=== PATIENT | female | born 1950 | race Caucasian/White ===

== ENCOUNTER → 2022-01-12 10:01 | Outpatient (REF) | payer MEDICARE, SELFPAY ==
--- NOTE | 2022-01-12 10:05 | CA_ITS ---
Transthoracic Echocardiogram Patient (Last, First, Middle): Jaqueline Ojeda Lou Gender: Female Date of : 1950 Age: 71 Procedure Date: 01/12/2022 Procedure Type: Transthoracic Echocardiogram Location: OP Height: 154.94 cm Weight: 74.84 kg BSA: 1.74 m2 Heart Rate: bpm BP: 140 / 68 mmHg Recreation Counselor: TO Referring MD: Dorinda Melendez MD Multi Operation Machine Operator: Donavan Ewing MD Symptoms: R06.09 - Other forms of dyspnea Study Quality: Fair/Contrast ECG Rhythm: Sinus Conclusions: - 1. Normal LV systolic function with impaired relaxation filling pattern 2. Mild mitral regurgitation 3. Normal RV systolic pressure 4. No gross pericardial effusion Findings Procedure Information Contrast agent, definity, is being given per protocol without apparent complications. Left Ventricle Normal left ventricular size, thickness, and systolic function. The visually estimated ejection fraction is between 65-70%. Spectral Doppler is indicative of an impaired relaxation filling pattern. E/E prime ratio is between 8 and 15 consistent with indeterminate filling pressures. Right Ventricle Normal right ventricular cavity size and systolic function. Atria Both atria are normal in size. Interatrial shunt cannot be excluded. Aortic Valve Normal aortic valve structure and function. There is no aortic valve stenosis. There is no aortic valve regurgitation. Mitral Valve There is mild anterior and posterior mitral leaflet thickening. There is mild mitral valve regurgitation. There is no mitral valve stenosis. Pulmonic Valve The pulmonic valve was not well visualized. Tricuspid Valve Likely normal tricuspid valve structure and function. There is trace tricuspid valve regurgitation. The right ventricular systolic pressure is normal. The right ventricular systolic pressure is 23 mmHg. Normal right atrial pressure. There is no evidence of pulmonary hypertension. Great Vessels All visible segments of the aorta are normal in size. The pulmonary artery was not well visualized. Venous The inferior vena cava is normal in size and collapses greater than 50% with inspiration. Pericardium/Pleural There is no evidence of pericardial effusion. Prior Study Comparison No prior study available for comparison. Measurements 2D Linear Measurements IVSd: 1.10 0.6-0.9/0.6-1.0 cm LVIDd: 4.22 3.9-5.3/4.2-5.9 cm LVIDd Index: 2.43 2.4-3.2/2.2-3.1 cm/m2 LVIDs: 2.39 2.0-3.6 cm LVPWd: 0.90 0.7-1.1 cm LA Diam: 3.50 2.7-3.8/3.0-4.0 cm LAIDs Index: 2.01 1.5-2.3 cm/m2 LV Mass: 171.51 67-162/88-224 g LV Mass Index: 98.57 43-95/49-115 g/m2 LVOT Diam: 1.90 3.0+(-)1.3 cm 2D Systolic Function EF 4C: 70.10 >55% EF 2C: 66.50 >55% EF BiP: 69.30 >55% Mitral Valve MV Pk E: 0.68 MV PK A: 0.91 MV Decel Time: 256.00 E/A: 0.80 E'Lateral: 9.14 E'Medial: 6.09 E/E' Med: 11.20 E/E' Lat: 7.50 PHT: 75.00 MVA PHT: 2.93 Decel [place]: 2.66 Aortic Valve AoV Pk Haroon: 1.96 AoV Mn Haroon: 1.28 AoV VTI: 0.36 AoV Pk Grad: 15.00 Aov Mn Grad: 7.00 ASHLEY Cont.VTI: 2.00 LVOT LVOT Pk Haroon: 1.36 LVOT Mn Haroon: 0.94 LVOT VTI: 0.26 LVOT Pk Grad: 7.00 LVOT Mn Grad: 4.00 LVOT Diam: 1.90 LVOT Area: 2.84 Diastolic Function MV Pk E: 0.68 MV Pk A: 0.91 E/A: 0.80 E'Medial: 6.09 E/E' Med: 11.20 E' Laterial: 9.14 E/E' Lat: 7.50 Right Ventricle TAPSE (mm): 20.70 TVS' Haroon: 11.10 Tricuspid Valve TR Pk Haroon: 2.26 TR Pk Grad: 20.00 RA Press: 3.00 RVSP: 23.00 Great Vessels Aorta Sinus of Valsalva: 2.68 2.0-3.[address] [place]: 1.85 1.7-3.4 cm Ao Asc: 2.40 2.1-3.4 cm Updated in Other Vendor System with Status of Final Donavan Ewing MD electronically signed on 01/13/2022 12:37:04 PM with status of Final
== END ==
LOC: HO.CARD 10:01
PROVIDERS: PCP Internal Medicine; Visit Provider Internal Medicine
DX: R06.09 Other forms of dyspnea (principal)
CPT/HCPCS: 93306; Q9957

== ENCOUNTER 2022-02-11 08:44 | Outpatient (REF) | payer MEDICARE, SELFPAY ==
--- NOTE | ~2022-02-11 | US_ITS ---
EXAMINATION: US ABDOMEN COMPLETE CLINICAL INFORMATION: Other specified abnormal findings of blood chemistry. COMPARISON: None TECHNIQUE: Real-imaging of the abdominal viscera. FINDINGS: PANCREAS: Normal. ABDOMINAL AORTA: The proximal, mid, and distal segments are normal in caliber. INFERIOR VENA CAVA: Visualized portions are normal. LIVER: The liver is normal in size. The liver contour is normal. There is increased liver echogenicity. No focal hepatic lesion. There is no intrahepatic biliary duct dilatation seen. GALLBLADDER: Gallbladder wall thickness is 0.17 cm. The gallbladder is physiologically distended without evidence of stones, sludge, polyps, wall thickening or pericholecystic fluid. COMMON BILE DUCT: Normal in caliber measuring 0.2 cm in diameter. RIGHT KIDNEY: Normal. No hydronephrosis. No renal calculi or focal parenchymal lesions. The kidney measures 10.3 cm in maximum dimension. LEFT KIDNEY: There is an echogenic nonobstructive stone measuring 0.54 x 0.31 x 0.60 cm. No hydronephrosis or focal parenchymal lesions. The kidney measures 9.8 cm in maximum dimension. SPLEEN: Normal. The spleen measures 8.9 cm in maximum dimension. FREE FLUID: None. US/US abdomen complete IMPRESSION: 1. Mild hepatic steatosis without focal lesion. 2. Nonobstructive echogenic stone lower pole left kidney. 3. The rest of the abdominal ultrasound is unremarkable.
== END 2022-02-11 08:45 | disposition home or self-care (01) ==
LOC: HO.HMGCX 08:44
PROVIDERS: PCP Internal Medicine; Visit Provider Internal Medicine
DX: R79.89 Other specified abnormal findings of blood chemistry (principal)
CPT/HCPCS: 76700

== ENCOUNTER 2022-04-28 11:05 | Outpatient (REF) | payer MEDICARE, SELFPAY ==
--- NOTE | ~2022-04-28 | XR_ITS ---
EXAMINATION: XR CERVICAL SPINE CLINICAL INFORMATION: Cervicalgia. COMPARISON: Radiographs dated 03/18/2010. TECHNIQUE: Frontal, odontoid and lateral views of the cervical spine were obtained. FINDINGS: Vertebral body heights are normal. At C2-C3, there is mild anterior disc space narrowing and a 3 mm anterolisthesis. There is marked disc space narrowing extending from C3-C4 through C6-C7. At C7-T1, there is a 3 mm anterolisthesis. No acute fracture or spondylolisthesis is seen. There is multi-level cervical spondylosis and facet arthropathy. The posterior elements are intact. The dens is intact. No prevertebral soft tissue swelling is seen. XR/XR cervical spine 2V IMPRESSION: There is multi-level cervical degenerative disc disease, spondylosis and facet arthropathy. Degenerative disc disease is particularly severe extending from C3-C4 through C6-C7.
== END 2022-04-28 11:06 | disposition home or self-care (01) ==
LOC: HO.HMGCX 11:05
PROVIDERS: Visit Provider Internal Medicine
DX: M54.2 Cervicalgia (principal)
CPT/HCPCS: 72040

== ENCOUNTER 2022-10-11 09:45 | Outpatient (AMB) | payer MEDICARE, SELFPAY ==
--- NOTE | 2022-10-11 10:28 | MHC.PC.OV ---
Vital Signs 10/11/22 10:29 Height 5 ft 2 in Weight 154 lb BMI 28.2 BP 112/72 Blood Pressure Location Lt brachial Position Sitting Pulse 73 Pulse Source Pulse Oximeter Pulse Oximetry (%) 98 Oxygen Delivery Method Room Air Intake Visit Reasons: 6 month f/u Intake Note: Pt is here today for 6 months follow up visit. Allergies hydrocodone [From Vicodin] Allergy (Unknown, Verified 10/11/22 10:29) vomiting and passing out acetaminophen [From Vicodin] Adverse Reaction (Unknown, Verified 10/11/22 10:29) vomiting and passing out metformin Adverse Reaction (Verified 10/11/22 10:29) burning in feet Tramadol & Dietary Manage Prod Allergy (Unknown, Uncoded 10/11/22 10:29) vomiting and passing out Medication List - Last Reconciled 10/11/22 by Dorinda Melendez MD baclofen 20 mg PO TID blood sugar diagnostic (FreeStyle Lite Strips) test blood sugar daily blood-glucose meter (FreeStyle Lite Meter kit) As directed lancets qd meloxicam 15 mg PO DAILY simvastatin 20 mg PO DAILY valsartan-hydrochlorothiazide 320-25 mg 1 tab PO DAILY Tobacco use date assessed: 04/28/22 Dental Screening Dental Screen Date: 10/11/22 Did you have a dental visit in the last 12 months?: Yes Did you have a dental problem in the last 6 months where you did not have access to dental care?: No Was dental information given to patient?: Patient has dentist HPI 6 month f/u HPI Details Patient presents for the follow-up of hyperlipidemia hypertension and diet-controlled diabetes. She complains of chronic lower back pain radiating to left lower extremity and has an appointment with neurosurgeon [facility] Medical History Breast pain, left DJD (degenerative joint disease) DM type 2 (diabetes mellitus, type 2) HTN (hypertension) Hyperlipidemia Impaired glucose tolerance Echevarria syndrome MGUS (monoclonal gammopathy of unknown significance) Multinodular goiter Nephrolithiasis Surgical History H/O: hysterectomy History of bilateral oophorectomy History of esophagogastroduodenoscopy (EGD) History of total hysterectomy Family History Father Cancer Mother Cancer HTN (hypertension) Social History Housing: House Alcohol intake: current Alcohol intake frequency: a few times a month Patient Tobacco Use Status: Former Tobacco user (45 years ago) e-Cigarette/Vaping Use: Never Used service: No Current occupational status: retired Cognitive needs: No Hearing needs: No Vision needs: Yes Questionnaire Thrive Questionnaire Date Thrive assessed: 04/28/22 ANAY-7 AMB Questionnaire ANAY-7 Date ANAY - 7 assessed: 04/28/22 Source: Developed by Drs. Gilberto Lopez, Bria Frank, Sukh Jon and colleagues, with an educational merlin from [employer]. Review of Systems Const All systems reviewed & are unremarkable except as noted in HPI and below Reports no additional complaints Eyes Reports no additional complaints ENT Reports no additional complaints Card Reports no additional complaints Resp Reports no additional complaints Reports no additional complaints Physical exam (Primary Care) Vital Signs: Last Vital Signs Pulse 73 10/11/22 10:29 BP 112/72 10/11/22 10:29 Pulse Ox 98 10/11/22 10:29 Oxygen Delivery Method Room Air 10/11/22 10:29 BMI result Body Mass Index 28.2 Tobacco/Smoking Status: Tobacco use Status Tobacco use date assessed 04/28/22 10/11/22 10:32 Patient Tobacco Use Status Former Tobacco user (45 10/11/22 10:32 years ago) e-Cigarette/Vaping Use Never Used 10/11/22 10:32 Thrive Assessment: Date of Thrive Assessment Date Thrive assessed 04/28/22 10/11/22 10:32 Const General: no acute distress HENMT Head: Yes normal to inspection Ears: hearing grossly normal bilaterally Face and sinus: Yes normal facial exam Mouth: Normal oral and palatal mucosa present Throat: Yes posterior oropharynx normal Resp Effort & Inspection: normal respiratory effort Auscultation: clear to auscultation bilaterally Cardio Rhythm: regular rhythm Heart sounds: S1 normal heart sound present and S2 normal heart sound present GI Inspection: Yes normal to inspection Palpation (GI): Soft to palpation Percussion: Yes normal to percussion Assessment and Plan Assessment & Plan (1) MGUS (monoclonal gammopathy of unknown significance): Comment: SPEP IGG 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 Code(s): D47.2 - Monoclonal gammopathy Plan: Check serum and urine immunofixation (2) Anemia: Code(s): D64.9 - Anemia, unspecified Plan: Check iron studies and B12 level and patient will be referred back to [facility] Hematology for workup of new onset anemia with significant lymphocytosis (3) DM type 2 (diabetes mellitus, type 2): Comment: diet controlled Code(s): E11.9 - Type 2 diabetes mellitus without complications Plan: A1c is 5.9, continue ADA diet and regular exercise (4) Hyperlipidemia: Code(s): E78.5 - Hyperlipidemia, unspecified Plan: Continue statin (5) HTN (hypertension): Code(s): I10 - Essential (primary) hypertension Plan: Continue current medications Orders: Orders Vitamin B12 and Folate Today D47.2 - Monoclonal gammopathy Immunofixation Pnl, Serum Today D47.2 - Monoclonal gammopathy Immunofixation, Random Urine Today D47.2 - Monoclonal gammopathy Referrals Hematology & Oncology Referral D47.2 - Monoclonal gammopathy, D64.9 - Anemia, unspecified Coding Level of Care Code Est Pt Level 4 (14252) Diagnoses MGUS (monoclonal gammopathy of unknown significance) D47.2 Anemia D64.9 DM type 2 (diabetes mellitus, type 2) E11.9 Hyperlipidemia E78.5 HTN (hypertension) I10
[2022-10-11 10:29] VITALS: BP 112/72; PULSE 73; O2SAT 98; BMI 28.2
== END 2022-10-11 14:57 | disposition home or self-care (01) ==
PROVIDERS: Visit Provider Internal Medicine
DX: E11.9 Type 2 diabetes mellitus without complications (principal); D47.2 Monoclonal gammopathy; I10 Essential (primary) hypertension; D64.9 Anemia, unspecified; E78.5 Hyperlipidemia, unspecified
CPT/HCPCS: 99214

== ENCOUNTER 2022-10-11 11:08 | Outpatient (REF) | payer MEDICARE, SELFPAY ==
[2022-10-11 14:39] LABS: Folate 11.5 ng/mL (> or = 4.0); Vitamin B12 468 pg/mL (200-900)
[2022-10-12 16:29] LABS: IgA 140 mg/dL (70-320); IgG 1454 mg/dL (600-1540); IgM 215 mg/dL (50-300)
== END 2022-10-11 11:09 | disposition home or self-care (01) ==
LOC: HO.HMGCLDS 11:08
PROVIDERS: PCP Internal Medicine; Visit Provider Internal Medicine
DX: D47.2 Monoclonal gammopathy (principal)
CPT/HCPCS: 36415; 82607; 82746; 82784; 86334; 86335

== ENCOUNTER 2022-10-13 08:32 | Outpatient (AMB) | payer MEDICARE, SELFPAY ==
--- NOTE | 2022-10-13 09:22 | A.SPINEOV_ITS ---
Intake Intake Visit Reasons: lower back pain, Intake Note: Mrs. Ojeda is here today c/o low back pain. MRI's done @ [facility] and [facility]. Ctr/brought disc. 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: No Allergies hydrocodone [From Vicodin] Allergy (Unknown, Verified 10/11/22 10:29) vomiting and passing out acetaminophen [From Vicodin] Adverse Reaction (Unknown, Verified 10/11/22 10:29) vomiting and passing out metformin Adverse Reaction (Verified 10/11/22 10:29) burning in feet Tramadol & Dietary Manage Prod Allergy (Unknown, Uncoded 10/11/22 10:29) vomiting and passing out Assessment & Plan Assessment & Plan (1) Spondylolisthesis of lumbar region: Code(s): M43.16 - Spondylolisthesis, lumbar region (2) Neurogenic claudication due to lumbar spinal stenosis: Code(s): M48.062 - Spinal stenosis, lumbar region with neurogenic claudication Plan Dear?colleague,? On?816,?2022,?I?saw?your?patient?Jaqueline?Jina?Lynette with?a?chief?complain?of?back?pain?and?left?leg?pain.?? History?of?present?illness:??This?72-year-old?female?comes?in?today?complaining? of?pain?down ?her?left?leg?with?walking?or?standing.??The?pain?comes?after?15?minutes.??Sitti ng?down?provide?complete?relief?of?the?left?leg?pain.??The?right?leg?is?affected ?to?a?lesser?extent.??The?pain?radiates? 5?from?her?back?into?her?buttock?to?the?outside?of?her?ankle?and?top?of?her?foot .??She?also?notices?that?her?left?leg?gives?out?when?she?goes?upstairs.??In?elier tion?to?the?leg?pain,?she?has?a?constant ?back?pain?that?is?uncomfortable?on?located?across?the?lumbar?spine?with?the?rig ht?side?is?more?affected?than?the?left?side.??She?completed?a?course?of?physical ?therapy?which?helped?her?a?right-sided?symptoms.??She?also?did?acupuncture. 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 She?is?going?to?be?evaluated?for?possibility?of?some?form?of?leukemia.?? Medications:??Some?facet?10,?falls?or?10,?vitamin-D?and?magnesium? Allergies:??Ultram?Vicodin Physical?exam:??Plea hector?female:??Straight?leg?raise?produces?radiating?pain?into?her?left?buttock?a nd?outside?of?her?left?thigh.??Otherwise?neurological?exam?is?intact?for?motor?s ensation?or?reflexes.??Standing?in?offic e?produces?the?pain?after?4?minutes?of?standing.?? Radiological?studies:??MRI?of?the?lumbar?spine?from?[facility]?of?2022?shows?a?gra de?2?spondylolisthesis?with?moderate?to?severe?L4-5?spinal?stenosis? and?bilateral?L4?foraminal?stenosis.??There?is?moderate?stenosis?at?L3-L4?withou t?instability.??An?x-ray?of?the?lumbar?spine?shows?again?the?grade?2?spondylolis thesis?at?L4-L5.?? In?summary,?this?pat ient?is?suffering?from?back?pain?and?neurogenic?claudication?will?caused?by?a?gr herman?2?L4-5?spondylolisthesis?with?associated?spinal?stenosis.??She?is?failing?co nservative?treatment.??We?discussed?surg ical?approaches?to?address?this.??Would?prefer?to?do?an?oblique?lumbar?interbody ?fusion?L4-5?to?realign?the?spine?and?indirectly?decompress?the?nerve?structures .??We?discussed?the?procedure?and?expect ed?postoperative?course.??She?1st?needs?to?be?evaluated?for?the?possible?leukemi a?before?she?wants?to?proceed.??She?will?return?to?my?office?when?she?is?ready?t o?undergo?surgery.??I?spent?50?minutes?i n?this?consult?for?preparation,?review?of?imaging?and?discussing?plan?of?care.?? Godwin?Cathie??,?PhD Spine?Fellowship?Trained?Neurosurgeon Director,?[facility]?[place]?[facility]? [facility]? Coding Level of Care Code New Pt Level 4 (73662) Diagnoses Spondylolisthesis of lumbar region M43.16 Neurogenic claudication due to lumbar spinal stenosis M48.062
--- NOTE | 2022-10-13 09:22 | HO.SPINEOV ---
Intake Intake Visit Reasons: lower back pain, Intake Note: Mrs. Ojeda is here today c/o low back pain. MRI's done @ [facility] and [facility]. Ctr/brought disc. End Maker Required: No Allergies hydrocodone [From Vicodin] Allergy (Unknown, Verified 10/11/22 10:29) vomiting and passing out acetaminophen [From Vicodin] Adverse Reaction (Unknown, Verified 10/11/22 10:29) vomiting and passing out metformin Adverse Reaction (Verified 10/11/22 10:29) burning in feet Tramadol & Dietary Manage Prod Allergy (Unknown, Uncoded 10/11/22 10:29) vomiting and passing out Assessment & Plan Assessment & Plan (1) Spondylolisthesis of lumbar region: Code(s): M43.16 - Spondylolisthesis, lumbar region (2) Neurogenic claudication due to lumbar spinal stenosis: Code(s): M48.062 - Spinal stenosis, lumbar region with neurogenic claudication Plan Dear?colleague,? On?816,?2022,?I?saw?your?patient?Jaqueline?Jina?Lynette with?a?chief?complain?of?back?pain?and?left?leg?pain.?? History?of?present?illness:??This?72-year-old?female?comes?in?today?complaining?of?pain?down?her?left?leg?with?walking?or?standing.??The?pain?comes?after?15?minutes.??Sitting?down?provide?complete?relief?of?the?left?leg?pain.??The?right?leg?is?affect ed?to?a?lesser?extent.??The?pain?radiates?5?from?her?back?into?her?buttock?to?the?outside?of?her?ankle?and?top?of?her?foot.??She?also?notices?that?her?left?leg?gives?out?when?she?goes?upstairs.??In?addition?to?the?leg?pain,?she?has?a?constant?back?pa in?that?is?uncomfortable?on?located?across?the?lumbar?spine?with?the?right?side?is?more?affected?than?the?left?side.??She?completed?a?course?of?physical?therapy?which?helped?her?a?right-sided?symptoms.??She?also?did?acupuncture. 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 She?is?going?to?be?evaluated?for?possibility?of?some?form?of?leukemia.?? Medications:??Some?facet?10,?falls?or?10,?vitamin-D?and?magnesium? Allergies:??Ultram?Vicodin Physical?exam:??Pleasant?female:??Straight?leg?raise?produces?radiating?pain?into?her?left?buttock?and?outside?of?her?left?thigh.??Otherwise?neurological?exam?is?intact?for?motor?sensation?or?reflexes.??Standing?in?office?produces?the?pain?after?4?mi nutes?of?standing.?? Radiological?studies:??MRI?of?the?lumbar?spine?from?[facility]?of?2022?shows?a?grade?2?spondylolisthesis?with?moderate?to?severe?L4-5?spinal?stenosis?and?bilateral?L4?foraminal?stenosis.??There?is?moderate?stenosis?at?L3-L4?without?instability.??An?x-r ay?of?the?lumbar?spine?shows?again?the?grade?2?spondylolisthesis?at?L4-L5.?? In?summary,?this?patient?is?suffering?from?back?pain?and?neurogenic?claudication?will?caused?by?a?grade?2?L4-5?spondylolisthesis?with?associated?spinal?stenosis.??She?is?failing?conservative?treatment.??We?discussed?surgical?approaches?to?address?thi s.??Would?prefer?to?do?an?oblique?lumbar?interbody?fusion?L4-5?to?realign?the?spine?and?indirectly?decompress?the?nerve?structures.??We?discussed?the?procedure?and?expected?postoperative?course.??She?1st?needs?to?be?evaluated?for?the?possible?leukemi a?before?she?wants?to?proceed.??She?will?return?to?my?office?when?she?is?ready?to?undergo?surgery.??I?spent?50?minutes?in?this?consult?for?preparation,?review?of?imaging?and?discussing?plan?of?care.?? Godwin?Cathie??,?PhD Spine?Fellowship?Trained?Neurosurgeon Director,?[facility]?[place]?[facility]?Minimally?Invasive?Spine?Surgery? [facility]? Coding Level of Care Code New Pt Level 4 (89617) Diagnoses Spondylolisthesis of lumbar region M43.16 Neurogenic claudication due to lumbar spinal stenosis M48.062
== END 2022-10-13 10:07 | disposition home or self-care (01) ==
PROVIDERS: PCP Internal Medicine; Visit Provider Neurological Surgery
DX: M43.16 Spondylolisthesis, lumbar region (principal); M48.062 Spinal stenosis, lumbar region with neurogenic claudication
CPT/HCPCS: 99204

== ENCOUNTER → 2022-10-13 08:32 | Outpatient (BNVA) | payer MEDICARE, SELFPAY | PROVIDERS: PCP Internal Medicine; Visit Provider Neurological Surgery | DX: M43.16 Spondylolisthesis, lumbar region (principal); M48.062 Spinal stenosis, lumbar region with neurogenic claudication | CPT/HCPCS: 99202 ==

== ENCOUNTER 2022-10-26 14:27 | Outpatient (REF) | payer MEDICARE, SELFPAY ==
--- NOTE | ~2022-10-26 | XR_ITS ---
EXAMINATION: XR SKELETAL SURVEY CLINICAL INFORMATION: Plasma dyscrasia, CLL lymphocytic leukemia MGUS gammopathy. COMPARISON: None available. TECHNIQUE: Skeletal survey. FINDINGS: The skull is normal. Multilevel degenerative spondylosis and degenerative disc disease of the cervical spine. Curvature of the lower thoracic and upper lumbar spine to the left. No fracture or bone lesion. Curvature of the lower lumbar spine to the right. Mild anterior subluxation of L4 with respect to L5. Degenerative disc disease at L4-L5 and L5-S1. Lower lumbar spine facet arthritis. No lytic pelvic lesion. Mild arthritis at the left hip joint. Normal chest. No rib lesion or fracture. Mild arthritis at the shoulder joints. Lucencies in the right carpal bones, the lunate, pisiform and scaphoid bone. This may be related to arthritis. Faint calcification in the right triangular fibrocartilage complex. Arthritis at the bilateral 1st FCI and trapezoid trapezium scaphoid joints. No lower extremity lytic lesion. Bilateral hip osteoarthritis, left greater than right. XR/XR bone survey IMPRESSION: Arthritis. No fracture or suspicious lytic lesion. Lucencies in the right carpal bones. This may be related to arthritis.
[2022-10-26 15:41] LABS: Basophils Percent Auto 0.9 % (0-2); Eosinophils Percent Auto 0.6 % (0-4); PLT CLUMP 1; SCAN SMEAR FLAG 1
[2022-10-26 15:43] LABS: Hematocrit 32.8 % (37.0-47.0); Hemoglobin 11.3 g/dl (12.0-16.0); Imm Gran Abs Auto 0.01 X10*3/uL (0.00-0.03); Imm Gran Pct Auto 0.3 % (0.0-0.4); Lymphocytes Absolute Auto 1.9 X10*3/uL (1.2-4.9); Lymphocytes Percent Auto 59.1 % (20-40); MANUAL DIFF FLAG SCAN; Mean Corpuscular HGB Conc 34.5 g/dl (31.0-35.0); Mean Corpuscular Hemoglobin 37.7 pg (27.0-33.0); Mean Corpuscular Volume 109.3 fL (80.0-98.0); Mean Platelet Volume 10.6 fL (9.4-12.3); Monocytes Absolute Auto 0.4 X10*3/uL (0.1-1.2); Monocytes Percent Auto 12.3 % (2-11); Neutrophils Absolute Auto 0.9 x10*3/uL (2.0-8.3); Neutrophils Percent Auto 26.8 % (45-73)
[2022-10-26 15:47] LABS: Platelet Count 129 X10*3/uL (160-400); White Blood Count 3.3 X10*3/uL (4.8-10.8)
[2022-10-26 16:24] LABS: Alanine Aminotransferase 25 U/L (0-31); Albumin Level 4.7 g/dL (3.5-5.0); Alkaline Phosphatase 79 U/L (39-117); Anion Gap 12 (12-20); Aspartate Amino Transferase 20 U/L (5-31); Blood Urea Nitrogen 17 mg/dL (9-16); Calcium 10.3 mg/dL (8.4-10.2); Carbon Dioxide 29 mmol/L (22-29); Chloride 104 mmol/L (96-108); Estimated Glomerular Filt Rate > 60; Glucose Random 84 mg/dL (60-115); Lactate Dehydrogenase 168 U/L (122-220); Potassium 3.7 mmol/L (3.3-5.1); Sodium 141 mmol/L (135-145); Total Protein 7.8 g/dL (6.5-8.0)
[2022-10-26 18:07] LABS: SLIDE REVIEW VERIFIED
[2022-10-28 10:08] LABS: Kappa Light Chain, Free Serum 14.6 mg/L (3.3-19.4); Kappa/Lambda Lt Ch Free Ratio 0.25 (0.26-1.65); Lambda Light Chain, Free Serum 58.1 mg/L (5.7-26.3)
[2022-10-28 15:14] LABS: PES - Abn Protein Band 1 0.5 g/dL (NONE DETECTED); Prot Elec - Albumin 4.8 g/dL (3.8-4.8); Prot Elec - Alpha1 0.3 g/dL (0.2-0.3); Prot Elec - Alpha2 0.5 g/dL (0.5-0.9); Prot Elec - Beta 1 0.4 g/dL (0.4-0.6); Prot Elec - Beta 2 0.3 g/dL (0.2-0.5); Prot Elec - Gamma 1.3 g/dL (0.8-1.7); Prot Elec - Total Protein 7.5 g/dL (6.1-8.1)
[2022-11-06 14:54] LABS: Kappa, Serum 166 mg/dL (176-443); Kappa/Lambda Ratio, Serum 0.65 (1.29-2.55); Lambda, Serum 254 mg/dL (91-240)
== END 2022-10-26 14:28 | disposition home or self-care (01) ==
LOC: HO.XRAY 14:27
PROVIDERS: PCP Internal Medicine; Visit Provider Internal Medicine Medical Oncology
DX: C91.10 Chronic lymphocytic leukemia of B-cell type not having achieved remission (principal); D47.2 Monoclonal gammopathy
CPT/HCPCS: 36415; 77075; 80053; 82232; 83521; 83615; 83883; 84165; 85025; 88184; 88185

== ENCOUNTER 2022-12-02 07:06 | Day surgery (SDC) | payer MEDICARE, SELFPAY ==
[2022-12-02 07:25] VITALS: BMI 29.3
[2022-12-02 07:31] VITALS: BP 172/65; PULSE 84; RESP 18; TEMP 36.1; O2SAT 96; BMI 29.3
[2022-12-02 09:38] VITALS: BP 96/51; PULSE 70; RESP 14; TEMP 36.8; O2SAT 95
--- NOTE | 2022-12-02 09:50 | PM.HEMONCBM ---
Bone Marrow Aspiration - Bone Marrow Aspiration Procedure:: *Service Date: [12/02/22] Pre Op Diagnosis:: 1. Pancytopenia. 2. Multiple myeloma. Surgeon:: Raymond. Anesthesia:: MAC. Consent:: Informed consent obtained from the patient for the procedure. Pros and cons of biopsy explained. The patient was willing to proceed with the procedure under local anesthesia. Procedure in Detail:: *Service Date: [_ Current Date] *Procedure: Bone marrow aspirate and biopsy. *Pre Op Dx: 1. Pancytopenia. 2. Multiple myeloma. *Post Op Dx: Same. *Surgeon: Rajeev Jane. The patient was positioned prone. The right posterior superior iliac spine prepped and draped. Patient was anesthetized under MAC. Under aseptic precautions, 5 ml of 1% lidocaine used for local anesthesia. Bone marrow aspirate was taken. With the Jamshidi needle, a core biopsy obtained without any complications. Specimens were sent for Quintero stain, flow cytometry and cytogenetics. Also for myeloma profile. Biopsy was sent for histology. The patient tolerated the procedure well. Bandage was applied and patient was positioned on her back for 10 to 15 minutes after the procedure. The patient was advised to call us if she develops any pain or swelling at the surgical site. Follow up in [address] Cunha.
[2022-12-02 09:52] VITALS: BP 109/46; PULSE 63; RESP 16; O2SAT 96
[2022-12-02 10:07] VITALS: BP 106/58; PULSE 63; RESP 16; TEMP 36.4; O2SAT 96
== END 2022-12-02 11:04 | disposition home or self-care (01) ==
PROVIDERS: Pathology Anatomic Pathology & Clinical Pathology; PCP Internal Medicine; Visit Provider Internal Medicine Medical Oncology
PROC: (CPT 38221; principal; 2022-12-02 09:00)
DX: C90.00 Multiple myeloma not having achieved remission (principal); D61.818 Other pancytopenia; Z15.09 Genetic susceptibility to other malignant neoplasm; Z80.0 Family history of malignant neoplasm of digestive organs; Z80.3 Family history of malignant neoplasm of breast; D47.2 Monoclonal gammopathy; E11.9 Type 2 diabetes mellitus without complications; I10 Essential (primary) hypertension; E78.2 Mixed hyperlipidemia; E78.5 Hyperlipidemia, unspecified; G89.29 Other chronic pain; E04.2 Nontoxic multinodular goiter; M54.50 Low back pain, unspecified; M51.36 Other intervertebral disc degeneration, lumbar region; E66.3 Overweight; Z68.28 Body mass index [BMI] 28.0-28.9, adult; Z79.899 Other long term (current) drug therapy; Z87.891 Personal history of nicotine dependence
CPT/HCPCS: 38222; 36415; 88184; 88185; 88237; 88264; 88305; 88311; 88313; 88341; 88342; 88374; J1642; J3010

== ENCOUNTER → 2022-12-02 07:06 | Outpatient (BNV) | payer MEDICARE, SELFPAY | PROVIDERS: PCP Internal Medicine; Visit Provider Internal Medicine Medical Oncology | DX: C90.00 Multiple myeloma not having achieved remission (principal) | CPT/HCPCS: 38222 ==

== ENCOUNTER → 2022-12-02 09:00 | Outpatient (BNV) | payer MEDICARE, SELFPAY | PROVIDERS: PCP Internal Medicine; Visit Provider Internal Medicine Medical Oncology | DX: D61.818 Other pancytopenia (principal) | CPT/HCPCS: 99204 ==

== ENCOUNTER 2022-12-30 09:00 | Outpatient (AMB) | payer MEDICARE, SELFPAY ==
[2022-12-30 09:22] VITALS: BP 118/70; PULSE 80; TEMP 36.3; O2SAT 96; BMI 28.9
--- NOTE | 2022-12-30 09:22 | MHC.OFFVIS ---
Intake Vital Signs 12/30/22 09:22 Height 5 ft 2 in Weight 157 lb 13.616 oz BMI 28.9 BP 118/70 Blood Pressure Location Lt brachial Position Sitting Pulse 80 Pulse Source Pulse Oximeter Temp 97.3 F Temp Source Skin Pulse Oximetry (%) 96 Oxygen Delivery Method Room Air Intake Visit Reasons: + RF Intake Note: New patient presenting here for positive rheumatoid factor. Internally referred by Dr. Jane. [place] Drawer Required: No Accompanied by: Self / Same As Patient Allergies hydrocodone [From Vicodin] Allergy (Unknown, Verified 12/30/22 09:22) vomiting and passing out acetaminophen [From Vicodin] Adverse Reaction (Unknown, Verified 12/30/22 09:22) vomiting and passing out metformin Adverse Reaction (Verified 12/30/22 09:22) burning in feet Tramadol & Dietary Manage Prod Allergy (Unknown, Uncoded 12/30/22 09:22) vomiting and passing out Medication List - Last Reconciled 12/30/22 by Raghav Ramirez MD baclofen 20 mg PO TID PRN blood sugar diagnostic (FreeStyle Lite Strips) test blood sugar daily blood-glucose meter (FreeStyle Lite Meter kit) As directed cholecalciferol (vitamin D3) (Vitamin D3) 50 mcg PO DAILY lancets qd meloxicam 15 mg PO DAILY PRN Saccharomyces boulardii (Probiotic (S.boulardii)) 250 mg PO QAM simvastatin 20 mg PO DAILY valsartan-hydrochlorothiazide 320-25 mg 1 tab PO DAILY HPI HPI Comments History of Present Illness Details The patient presents for evaluation of multiple areas of pain and a positive rheumatoid factor. She has a longstanding history of MGUS. In September she was found to be anemic so further workup has led to bone marrow biopsy. She still carries a diagnosis some MGUS and has not reached criteria for myeloma diagnosis. Around the same time that the anemia developed she seemed to have more discomfort in many joints. She said chronic problems with the neck and lower back pain in the past attributed to osteoarthritis. There has been some discomfort recently in the wrists and the thumb regions bilaterally. She also has some knee pain as well. 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 She has not noticed any swollen joints. She does take occasional baclofen for her back and neck pains as well as occasional acetaminophen for those pains and any other pains. Apparently meloxicam was prescribed but she has not been taking it. In general she has not been taking that much in terms of medication for her symptoms. [facility] Medical History (Updated 12/30/22 @ 11:10 by Raghav Ramirez MD) DM type 2 (diabetes mellitus, type 2) Breast pain, left Impaired glucose tolerance Multinodular goiter DJD (degenerative joint disease) Nephrolithiasis MGUS (monoclonal gammopathy of unknown significance) Echevarria syndrome Hyperlipidemia HTN (hypertension) Surgical History H/O: hysterectomy History of esophagogastroduodenoscopy (EGD) History of bilateral oophorectomy History of total hysterectomy Family History Father Cancer Mother Cancer HTN (hypertension) Social History Household Members: Spouse Housing: House Alcohol intake: current Alcohol intake frequency: a few times a month Patient Tobacco Use Status: Former Tobacco user Quit Date: age 23 Tobacco use type: Cigarette e-Cigarette/Vaping Use: Never Used service: No Current occupational status: retired Cognitive needs: No Hearing needs: No Vision needs: Yes Female Reproductive History Menstrual Total pregnancies: 1 Review of Systems Const Details: Negative for appetite change, weight change, fever, chills, malaise and fatigue Eyes Details: Sometimes the eyes feel dry and other times they feel like they are watering. She occasionally uses [id number] eyedrops. Negative for vision change, dry eyes,headaches and dizziness ENT Details: Negative for hearing change, tinnitus, oral ulcer, nose bleeds and oral dryness. Card Details: Negative chest pain, edema and syncope Resp Details: Negative for SOB, cough and wheezing GI Details: Negative indigestion/heartburn, nausea, abdominal pain, bowel changes, diarrhea, constipation and bloody stool. Details: Negative for dysuria, hematuria, nocturia, decreased force/flow and genital discharge Skin/Breast Details: Negative for itching, rash, hives, Raynaud's symptoms, sun sensitivity, and skin cancer Neuro Details: Occasional hand numbness, usually noted in the mornings when she wakes up. Negative for epilepsy, palsy, stroke, changes in speech, and weakness Psych Details: Negative for anxiety, depression and stress Endo Details: Negative for polyuria and polydypsia Alejandro/Lymph Details: Negative for excessive bruising or bleeding. Physical Exam Vital Signs: Last Vital Signs Temp 97.3 F 12/30/22 09:22 Pulse 80 12/30/22 09:22 BP 118/70 12/30/22 09:22 Pulse Ox 96 12/30/22 09:22 Oxygen Delivery Method Room Air 12/30/22 09:22 BMI result Body Mass Index 28.9 APPEARANCE: Patient in no acute distress EYES no redness, pupils equal and reactive to light, eyelids normal. No temporal artery tenderness, redness or swelling. EARS: External ear normal, canal clear and tympanic membrane normal. NOSE/SINUS: Airflow through both nares, no nasal discharge, no bleeding THROAT: Oral mucosa moist, no ulcerations NECK: No thyromegaly or masses, no adenopathy, trachea midline. HEART: Regulrar rhythm, S1-S2 heard, no murmurs, rubs or gallops. LUNG: Clear to percussion and auscultation ABD: Normal bowel sounds, no organomegaly, masses or tenderness. EXTREMITIES: No edema, no calf tenderness, normal peripheral pulses. NEURO: Oriented and alert x3. No focal weakness. Reflexes symmetric. Gait normal. SKIN: No inflammatory or neoplastic lesions. Normal color and turgor JOINT EXAM:.?? Cervical Spine: Mild discomfort with lateral flexion at 10 degrees or rotation at 45 degrees. No the tenderness. Thoracic Spine:.? No scoliosis.? No tenderness on palpation. Lumbar Spine:.? Alignment normal.? Full range of motion with slight pain at the extremes of flexion. No tenderness. Chest Wall:.? No tenderness, swelling, increased warmth or erythema. Hands:.? Right: She has normal pain-free range of motion. There is a flexor tendon cyst in the 4th flexor tendon. This is minimally tender but no triggering is appreciated. She has some slight tenderness and probably some bony enlargement at the base of the thumb. There is some slight bony enlargement at the thumb IP and 2nd PIP joints but these are not tender. There is no thenar atrophy or sensory loss. Left: There is some slight bony enlargement and mild tenderness at the base of the thumb. She has normal pain-free range of motion with slight bony enlargement at the 2nd PIP joint but none of the joints have any soft tissue swelling, tenderness, increased warmth or erythema. There is no thenar atrophy or sensory loss. Wrists:.? Right: Normal pain-free range of motion with some slight dorsal tenderness but no swelling. Left: Normal pain-free range of motion with some slight dorsal tenderness. No soft tissue swelling, increased warmth or erythema. Elbows:. Normal pain-free range of motion without tenderness, swelling, increased warmth or erythema. Shoulders:.? Left: Mild discomfort at the extremes of normal range of motion with some minimal anterior tenderness. No abductor weakness, soft tissue swelling or adenopathy. Right:? Full range of motion without pain. No tenderness, weakness, swelling, increased warmth or erythema. Hips:.? Full range of motion with some minimal pain in the buttock region at the extremes of normal abduction, internal rotation or external rotation. No groin pain with motion. Hip bursa:.? No tenderness. Knees:.?? Normal pain-free range of motion without tenderness, swelling, increased warmth or erythema.? There is no effusion or crepitation Ankles:.? Right: Normal pain-free range of motion. There is some mild medial tenderness without swelling or redness. There is no Achilles tenderness. Left: Normal pain-free range of motion without tenderness, swelling, increased warmth or erythema. Feet:.? Right: There is slight bony enlargement at the 1st MTP. The 1st and 2nd MTPs are tender showing any soft tissue swelling redness or warmth. Left: Normal pain-free range of motion with he some mild 1st MTP bony enlargement. There is some slight tenderness in the 1st 2 MTP joints but there is no soft tissue swelling, increased warmth or erythema. Tender points:.? No tenderness to digital palpation at the occiput, trapezius, second rib, lateral epicondyle, knees, greater trochanter and gluteal area bilaterally. ? Results Reviewed Results Reviewed: Laboratory Tests 12/01/22 10:30 WBC 3.7 L Hgb 10.9 L ESR 27 H Rheumatoid Factor 31.5 H Laboratory Tests 12/01/22 10:30 Plt Count 118 L Abs Neuts (Manual) 1.8 L Rheumatoid Factor 31.5 H Laboratory Tests 12/01/22 10:30 Creatinine 0.85 Random Glucose 124 H AST 21 ALT 28 Alkaline Phosphatase [address] [address] XRay Report Signed Patient: Jaqueline Ojeda MR#: [id number] : 1950 Acct:[id number] Age/Sex: 72 / F ADM Date: 10/26/[address]: Gilberot Cunha MD Ordering Physician: Gilberto Cunha MD Date of Service: 10/26/22 Procedure(s): XR bone survey Accession Number(s): [id number] cc: Gilberto Cunha MD~ EXAMINATION: XR SKELETAL SURVEY CLINICAL INFORMATION: Plasma dyscrasia, CLL lymphocytic leukemia MGUS gammopathy. COMPARISON: None available. TECHNIQUE: Skeletal survey. FINDINGS: The skull is normal. Multilevel degenerative spondylosis and degenerative disc disease of the cervical spine. Curvature of the lower thoracic and upper lumbar spine to the left. No fracture or bone lesion. Curvature of the lower lumbar spine to the right. Mild anterior subluxation of L4 with respect to L5. Degenerative disc disease at L4-L5 and L5-S1. Lower lumbar spine facet arthritis. No lytic pelvic lesion. Mild arthritis at the left hip joint. Normal chest. No rib lesion or fracture. Mild arthritis at the shoulder joints. Lucencies in the right carpal bones, the lunate, pisiform and scaphoid bone. This may be related to arthritis. Faint calcification in the right triangular fibrocartilage complex. Arthritis at the bilateral 1st PRISON and trapezoid trapezium scaphoid joints. No lower extremity lytic lesion. Bilateral hip osteoarthritis, left greater than right. XR/XR bone survey IMPRESSION: Arthritis. No fracture or suspicious lytic lesion. Lucencies in the right carpal bones. This may be related to arthritis. Dictated By: Whitley Currie MD Signed By: <Electronically signed by Whitley Currie MD in OV> 10/27/22 1658 DD/ 1550 TD/TT: Director Of Materials: NABOR Assessment & Plan Assessment & Plan (1) MGUS (monoclonal gammopathy of unknown significance): Comment: SPEP IGG lambda monoclonal [facility] agile plm consultant Dr. Donovan Code(s): D47.2 - Monoclonal gammopathy (2) Osteoarthritis cervical spine: Code(s): M47.812 - Spondylosis without myelopathy or radiculopathy, cervical region (3) Osteoarthritis of lumbar spine: Code(s): M47.816 - Spondylosis without myelopathy or radiculopathy, lumbar region (4) Rheumatoid factor positive: Code(s): R76.8 - Other specified abnormal immunological findings in serum (5) Osteoarthritis of hands, bilateral: Code(s): M19.041 - Primary osteoarthritis, right hand; M19.042 - Primary osteoarthritis, left hand Plan The patient has longstanding MGUS and now seemingly in the last year sh has developed pancytopenia. The bone marrow disease has not progressed to the point where chemotherapy has been recommended. The rheumatoid factor has mild positivity. She does not seem to have the findings of peripheral synovitis showing rheumatoid arthritis but could develop such findings in the future. A bone survey did show osteoarthritis in the lumbar spine, the cervical spine and to some extent in the hands. I think most of her arthralgias at present could be explained by osteoarthritis in the hands, cervical spine, and the lumbar spine. She is barely taking any medications for this at this point so she could take more of the acetaminophen safely up to 1 g t.i.d. if needed. If she develops more pains and swelling we would re-evaluate her for RA but at present I would not treat her with any DMARD. Follow-up in 5 or 6 months seems reasonable. Coding Level of Care Code New Pt Level 3 (71640) Diagnoses MGUS (monoclonal gammopathy of unknown significance) D47.2 Osteoarthritis cervical spine M47.812 Osteoarthritis of lumbar spine M47.816 Rheumatoid factor positive R76.8 Osteoarthritis of hands, bilateral M19.041; M19.042
== END 2022-12-30 10:10 | disposition home or self-care (01) ==
PROVIDERS: PCP Internal Medicine; Visit Provider Internal Medicine Rheumatology
DX: D47.2 Monoclonal gammopathy (principal); M47.812 Spondylosis without myelopathy or radiculopathy, cervical region; M47.816 Spondylosis without myelopathy or radiculopathy, lumbar region; R76.8 Other specified abnormal immunological findings in serum; M19.041 Primary osteoarthritis, right hand; M19.042 Primary osteoarthritis, left hand
CPT/HCPCS: 99203

== ENCOUNTER → 2022-12-30 09:00 | Outpatient (BNVA) | payer MEDICARE, SELFPAY | PROVIDERS: PCP Internal Medicine; Visit Provider Internal Medicine Rheumatology | DX: M47.812 Spondylosis without myelopathy or radiculopathy, cervical region (principal); M47.816 Spondylosis without myelopathy or radiculopathy, lumbar region; M19.041 Primary osteoarthritis, right hand; M19.042 Primary osteoarthritis, left hand; D47.2 Monoclonal gammopathy; R76.8 Other specified abnormal immunological findings in serum | CPT/HCPCS: 99202 ==

== ENCOUNTER 2023-04-04 11:49 | Outpatient (AMB) | payer MEDICARE, SELFPAY ==
--- NOTE | 2023-04-04 12:02 | MHC.PC.OV ---
Vital Signs 04/04/23 12:04 Height 5 ft 2 in Weight 159 lb 4 oz BMI 29.1 BP 140/72 H Blood Pressure Location Rt brachial Position Sitting Pulse 80 Pulse Source Pulse Oximeter Pulse Oximetry (%) 97 Oxygen Delivery Method Room Air Intake Visit Reasons: 6 month followup Intake Note: Pt is here to follow up for HTN and Lipids Allergies hydrocodone [From Vicodin] Allergy (Unknown, Verified 04/04/23 12:06) vomiting and passing out acetaminophen [From Vicodin] Adverse Reaction (Unknown, Verified 04/04/23 12:06) vomiting and passing out metformin Adverse Reaction (Verified 04/04/23 12:06) burning in feet Tramadol & Dietary Manage Prod Allergy (Unknown, Uncoded 04/04/23 12:06) vomiting and passing out Medication List - Last Reconciled 04/04/23 by Dorinda Melendez MD baclofen 20 mg PO TID PRN blood sugar diagnostic (FreeStyle Lite Strips) test blood sugar daily blood-glucose meter (FreeStyle Lite Meter kit) As directed cholecalciferol (vitamin D3) (Vitamin D3) 150 mcg PO DAILY lancets (FreeStyle Lancets) Test blood sugar once a day magnesium 250 mg PO DAILY meloxicam 15 mg PO DAILY PRN simvastatin 20 mg PO DAILY valsartan-hydrochlorothiazide 320-25 mg 1 tab PO DAILY Tobacco use date assessed: 04/04/23 Fall risk assessment: No Falls in past year Last assessed Fall Risk: 04/04/23 Dental Screening Dental Screen Date: 04/04/23 Did you have a dental visit in the last 12 months?: Yes Did you have a dental problem in the last 6 months where you did not have access to dental care?: No Was dental information given to patient?: Patient has dentist HPI 6 month followup HPI Details Patient presents for the follow-up. Hypertension and hyperlipidemia stable on current medications. 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 [facility] Medical History Echevarria syndrome DM type 2 (diabetes mellitus, type 2) Breast pain, left Impaired glucose tolerance Multinodular goiter DJD (degenerative joint disease) Nephrolithiasis MGUS (monoclonal gammopathy of unknown significance) Hyperlipidemia HTN (hypertension) Surgical History H/O: hysterectomy History of esophagogastroduodenoscopy (EGD) History of bilateral oophorectomy History of total hysterectomy Family History Father Cancer Mother Cancer HTN (hypertension) Social History Household Members: Spouse Housing: House Alcohol intake: current Alcohol intake frequency: a few times a month Patient Tobacco Use Status: Former Tobacco user Quit Date: age 23 Tobacco use type: Cigarette e-Cigarette/Vaping Use: Never Used service: No Current occupational status: retired Cognitive needs: No Hearing needs: No Vision needs: Yes Questionnaire Thrive Questionnaire Date Thrive assessed: 04/28/22 AUDIT C Alcohol Use Questionnaire (AUDIT-C) 1. How often do you have a drink containing alcohol?: Never Total Score: 0 ANAY-7 AMB Questionnaire ANAY-7 Date ANAY - 7 assessed: 04/28/22 Feeling nervous, anxious, or on edge: 0 = Not at all Not being able to stop or control worryin = Not at all Worrying too much about different things: 0 = Not at all Trouble relaxin = Not at all Being so restless that it is hard to sit still: 0 = Not at all Becoming easily annoyed or irritable: 0 = Not at all Feeling afraid as if something awful might happen: 0 = Not at all Total ANAY-7 score (0-4 normal; 5-9 mild; 10-14 moderate; 15-21 severe): 0 Source: Developed by Drs. Gilberto Lopez, Bria Frank, Sukh Jon and colleagues, with an educational merlin from [employer]. Review of Systems Const All systems reviewed & are unremarkable except as noted in HPI and below Reports no additional complaints Eyes Reports no additional complaints ENT Reports no additional complaints Card Reports no additional complaints Resp Reports no additional complaints GI Reports no additional complaints Reports no additional complaints Physical exam (Primary Care) Vital Signs: Last Vital Signs Pulse 80 04/04/23 12:04 BP 140/72 H 04/04/23 12:04 Pulse Ox 97 04/04/23 12:04 Oxygen Delivery Method Room Air 04/04/23 12:04 BMI result Body Mass Index 29.1 Tobacco/Smoking Status: Tobacco use Status Tobacco use date assessed 04/04/23 04/04/23 12:10 Patient Tobacco Use Status Former Tobacco user 04/04/23 12:10 Tobacco use type Cigarette 04/04/23 12:10 e-Cigarette/Vaping Use Never Used 04/04/23 12:10 Thrive Assessment: Date of Thrive Assessment Date Thrive assessed 04/28/22 04/04/23 12:10 Const General: no acute distress HENMT Head: Yes normal to inspection Ears: hearing grossly normal bilaterally Eyes General: appearance normal, both eyes and all related structures Resp Effort & Inspection: normal respiratory effort Auscultation: clear to auscultation bilaterally Cardio Rhythm: regular rhythm Heart sounds: S1 normal heart sound present and S2 normal heart sound present GI Inspection: Yes normal to inspection Palpation (GI): Soft to palpation Percussion: Yes normal to percussion Auscultation: normal bowel sounds Assessment and Plan Assessment & Plan (1) Echevarria syndrome: Comment: history of polyps. negative last colonoscopy 08/2018 f/u Dr. Wiley , negative EGD 08/2018 Code(s): Z15.09 - Genetic susceptibility to other malignant neoplasm Plan: Check urine cytology follow-up with GI (2) MDS (myelodysplastic syndrome): Comment: F/U [facility] for [facility]ogenic bone marrow transplant 04/23 Code(s): D46.9 - Myelodysplastic syndrome, unspecified Plan: Follow-up with Hematology (3) Hyperlipidemia: Code(s): E78.5 - Hyperlipidemia, unspecified Plan: Continue statin (4) HTN (hypertension): Code(s): I10 - Essential (primary) hypertension Plan: Continue current medications Orders: Orders Urine Cytology Today Z15.09 - Genetic susceptibility to other malignant neoplasm Coding Level of Care Code Est Pt Level 4 (48693) Diagnoses Echevarria syndrome Z15.09 MDS (myelodysplastic syndrome) D46.9 Hyperlipidemia E78.5 HTN (hypertension) I10
[2023-04-04 12:04] VITALS: BP 140/72; PULSE 80; O2SAT 97; BMI 29.1
== END 2023-04-04 14:13 | disposition home or self-care (01) ==
PROVIDERS: PCP Internal Medicine; Visit Provider Internal Medicine
DX: E78.5 Hyperlipidemia, unspecified (principal); D46.9 Myelodysplastic syndrome, unspecified; I10 Essential (primary) hypertension; Z15.09 Genetic susceptibility to other malignant neoplasm
CPT/HCPCS: 99214

== ENCOUNTER 2023-09-20 09:32 | Outpatient (AMB) | payer MEDICARE, SELFPAY ==
[2023-09-20 10:04] VITALS: BP 130/80; PULSE 64; O2SAT 97; BMI 29.3
--- NOTE | 2023-09-20 10:04 | MHC.PC.OV ---
Vital Signs 09/20/23 10:04 Height 5 ft 2 in Weight 160 lb BMI 29.3 BP 130/80 Blood Pressure Location Lt brachial Position Sitting Pulse 64 Pulse Source Pulse Oximeter Pulse Oximetry (%) 97 Oxygen Delivery Method Room Air Intake Visit Reasons: annual [facility] Visit Intake Note: Pt is here today for her PE Allergies hydrocodone [From Vicodin] Allergy (Unknown, Verified 09/20/23 10:05) vomiting and passing out acetaminophen [From Vicodin] Adverse Reaction (Unknown, Verified 09/20/23 10:05) vomiting and passing out metformin Adverse Reaction (Verified 09/20/23 10:05) burning in feet Tramadol & Dietary Manage Prod Allergy (Unknown, Uncoded 09/20/23 10:05) vomiting and passing out Medication List - Last Reconciled 09/20/23 by Dorinda Melendez MD blood sugar diagnostic (FreeStyle Lite Strips) test blood sugar daily blood-glucose meter (FreeStyle Lite Meter kit) As directed cholecalciferol (vitamin D3) (Vitamin D3) 150 mcg PO DAILY lancets (FreeStyle Lancets) Test blood sugar once a day levofloxacin 500 mg PO DAILY simvastatin 20 mg PO DAILY valsartan-hydrochlorothiazide 320-25 mg 1 tab PO DAILY Tobacco use date assessed: 09/20/23 Fall risk assessment: No Falls in past year Last assessed Fall Risk: 09/20/23 Dental Screening Dental Screen Date: 09/20/23 Did you have a dental visit in the last 12 months?: Yes Did you have a dental problem in the last 6 months where you did not have access to dental care?: No Was dental information given to patient?: Patient has dentist HPI annual [facility] Visit HPI Details Pt presents for PE. Patient has been undergoing treatment for MDS getting chemo for preparation of stem cell transplant at [facility]. She reports feeling generally tired having less energy. She denies suicidal ideation or depression. Hypertension hyperlipidemia are controlled on current medications. [facility] Medical History (Updated 09/20/23 @ 11:09 by Dorinda Melendez MD) Echevarria syndrome DM type 2 (diabetes mellitus, type 2) Breast pain, left Impaired glucose tolerance Multinodular goiter DJD (degenerative joint disease) Nephrolithiasis MGUS (monoclonal gammopathy of unknown significance) Hyperlipidemia HTN (hypertension) Surgical History H/O: hysterectomy History of esophagogastroduodenoscopy (EGD) History of bilateral oophorectomy History of total hysterectomy Family History Father Cancer Mother Cancer HTN (hypertension) Social History Household Members: Spouse Housing: House Alcohol intake: current Alcohol intake frequency: a few times a month Patient Tobacco Use Status: Former Tobacco user Tobacco use type: Cigarette e-Cigarette/Vaping Use: Never Used service: No Current occupational status: retired Cognitive needs: No Hearing needs: No Vision needs: Yes Questionnaire PHQ-9 Over the last 2 weeks, how often have you been bothered by any of the following problems? 1. Little interest or pleasure in doing things: not at all 2. Feeling down, depressed, or hopeless: not at all Source: Developed by Drs. Gilberto Lopez, Bria Frank, Sukh Jon and colleagues, with an educational merlin from [employer]. Thrive Questionnaire Date Thrive assessed: 09/20/23 I am a: Patient What is your living situation today?: I have a steady place to live Within the past 12 months, did the food you bought not last and you didn't have the money to get more?: Never true Within the past 12 months, did you worry whether your food would run out before you got money to buy more?: Never true Do you have trouble paying for medicines?: No Do you have trouble getting transportation to medical appointments?: No Do you have trouble paying your heating and electricity bill?: No Do you have trouble taking care of your child, family member or friend?: No Do you have trouble with day-to-day activities such as bathing, preparing meals, shopping, managing finances, etc.?: No Are you currently unemployed and looking for a job?: No Are you interested in more education?: No THRIVE Score: 0 AUDIT C Alcohol Use Questionnaire (AUDIT-C) 1. How often do you have a drink containing alcohol?: Never 3. How often do you have six or more drinks on one occasion?: Never Total Score: 0 ANAY-7 AMB Questionnaire ANAY-7 Date ANAY - 7 assessed: 04/28/22 Feeling nervous, anxious, or on edge: 0 = Not at all Not being able to stop or control worryin = Not at all Worrying too much about different things: 0 = Not at all Trouble relaxin = Not at all Being so restless that it is hard to sit still: 0 = Not at all Becoming easily annoyed or irritable: 0 = Not at all Feeling afraid as if something awful might happen: 0 = Not at all Total ANAY-7 score (0-4 normal; 5-9 mild; 10-14 moderate; 15-21 severe): 0 Source: Developed by Drs. Gilberto Lopez, Bria Frank, Sukh Jon and colleagues, with an educational merlin from [employer]. Review of Systems Const All systems reviewed & are unremarkable except as noted in HPI and below Eyes Reports no additional complaints ENT Reports no additional complaints Card Reports no additional complaints Resp Reports no additional complaints GI Reports no additional complaints Reports no additional complaints Physical exam (Primary Care) Vital Signs: Last Vital Signs Pulse 64 09/20/23 10:04 BP 130/80 09/20/23 10:04 Pulse Ox 97 09/20/23 10:04 Oxygen Delivery Method Room Air 09/20/23 10:04 BMI result Body Mass Index 29.3 Tobacco/Smoking Status: Tobacco use Status Tobacco use date assessed 09/20/23 09/20/23 10:08 Patient Tobacco Use Status Former Tobacco user 09/20/23 10:08 Tobacco use type Cigarette 09/20/23 10:08 e-Cigarette/Vaping Use Never Used 09/20/23 10:08 Thrive Assessment: Date of Thrive Assessment Date Thrive assessed 09/20/23 09/20/23 10:08 Const General: no acute distress HENMT Head: Yes normal to inspection Ears: hearing grossly normal bilaterally Mouth: Normal oral and palatal mucosa present Eyes General: appearance normal, both eyes and all related structures Neck Neck: Yes no lymphadenopathy Resp Effort & Inspection: normal respiratory effort Auscultation: clear to auscultation bilaterally Cardio Rhythm: regular rhythm Heart sounds: S1 normal heart sound present and S2 normal heart sound present GI Inspection: Yes normal to inspection Palpation (GI): Soft to palpation Percussion: Yes normal to percussion Assessment and Plan Assessment & Plan (1) MDS (myelodysplastic syndrome): Comment: F/U [facility] for allogenic bone marrow transplant 04/23 Code(s): D46.9 - Myelodysplastic syndrome, unspecified Plan: Follow-up with Hematology, start Zoloft 25 mg for the 1st week then increase to 50 mg. Patient will continue group counseling (2) DM type 2 (diabetes mellitus, type 2): Comment: diet controlled Code(s): E11.9 - Type 2 diabetes mellitus without complications Plan: ADA diet regular physical activity weight loss discussed with the patient A1c will be monitor (3) Hyperlipidemia: Code(s): E78.5 - Hyperlipidemia, unspecified Plan: Continue statin (4) HTN (hypertension): Code(s): I10 - Essential (primary) hypertension Plan: Continue current medications (5) Annual physical exam: Code(s): Z00.00 - Encounter for general adult medical examination without abnormal findings Plan: Patient is up-to-date with the mammogram follows up with GI for colonoscopy Medications: New sertraline 1/2 tabl qd x 2 weeks, 1 tabl qd 50 mg PO DAILY 30 tabs 3RF Coding Level of Care Code Est Pt Prev Care >65y(66536) Diagnoses MDS (myelodysplastic syndrome) D46.9 DM type 2 (diabetes mellitus, type 2) E11.9 Hyperlipidemia E78.5 HTN (hypertension) I10 Annual physical exam Z00.00
== END 2023-09-20 11:10 | disposition home or self-care (01) ==
PROVIDERS: PCP Internal Medicine; Visit Provider Internal Medicine
DX: E11.69 Type 2 diabetes mellitus with other specified complication (principal); D46.9 Myelodysplastic syndrome, unspecified; E78.5 Hyperlipidemia, unspecified; I10 Essential (primary) hypertension
CPT/HCPCS: 99214

== ENCOUNTER 2024-02-10 13:10 | Outpatient (AMB) | payer MEDICARE, SELFPAY ==
--- OUTSIDE RECORDS SUMMARY | 2024-02-10 13:13 | XMS_ITS ---
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 Name Role Phone RASHEEDA UMANA MD Primary Care Provider Unavaila Gilberto Carmichael [phone] REASON FOR VISIT request for medical records from [facility] [place] office Social History Sex Assigned At : Social History Observation Description Sex Assigned At Female Encounters Encounter Location Date Provider Diagnosis Gilberto Cunha III, MD [address] [place] [address] [place] [id number] 02/10/2023 Gilberto Cunha Plan Of Treatment No Information Progress Notes * HOWARD GUTIÉRREZOB: (72 yo F)Acc No.[id number]:02/10/2023 Patient:?HOWARD GUTIÉRREZ :1950???Age:72 Y???Sex:Female Address:[address] [place] [address], [id number] * true * Date:? Generated for Printi zak/Sla/eTransmitting on:?02/10/2024 01:13 PM EST
--- OUTSIDE RECORDS SUMMARY | 2024-02-10 13:13 | XMS_ITS | Clinical Summary ---
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 03-15 00:00: 00 TYPE 2 DIABETES MELLITUS WITHOUT COMPLICATION S Active 2022-02 2 00:00: 00 NEUTROPENIA, UNSPECIFIED Active 02-28 00:00: 00 UNSPECIFIED MOOD [AFFECTIVE] DISORDER Active 02-28 00:00: 00 ESSENTIAL (PRIMARY) HYPERTENSION Active 02-28 00:00: 00 MONOCLONAL GAMMOPATHY Active 2022-02 2 00:00: 00 OTH BACTERIAL AGENTS THE CAUSE OF DISEASES CLASSD ELSWHR Active 02-28 00:00: 00 BACTEREMIA Active 02-28 00:00: 00 PRIMARY OSTEOARTHRIT IS, RIGHT WRIST Active 02-28 00:00: 00 OTHER CHRONIC PAIN Active 02-28 00:00: 00 DORSALGIA, UNSPECIFIED Active 02-28 00:00: 00 CERVICALGIA Active 02-28 00:00: 00 PURE HYPERCHOLEST EROLEMIA, UNSPECIFIED Active 2022-02 2- 00:00: 00 ANEMIA, UNSPECIFIED Active 02-28 00:00: 00 Problems related to health literacy Active 02-28 00:00: 00 ALF (CURRENT) USE OF ANTIBIOTICS Active - 00:00: 00 PERSONAL HISTORY OF NICOTINE DEPENDENCE Active 02-28 00:00: 00 Allergies, Adverse Reactions, Alerts Allergy Name Allergy Type Status Severity Reaction(s) Onset Date Inactive Date Treating Clinician Comments HYDROCODONE- ACETAMINOPHE N Propensity to adverse reactions Active 2023-02 07:27: 25 TRAMADOL Propensity to adverse reactions Active 2023-02 07:27: 34 NOREPINEPHRI NE Propensity to adverse reactions Active 2023-02 07:28: 14 Medications Ordered Medication Name Filled Medication Name Start Date Stop Date Current Medication? Ordering Clinician Indication Dosage Frequency Signature (SIG) Comments Components lorazepam 0.5 mg tablet 11-24 00:00: 00 01-14 23:59 :00 No [id number] 1 tablet NEEDED 1 tablet NEEDED (route: oral) Med Classific ation: Central Nervous System Agents olanzapine 5 mg disintegrat ing tablet 11-24 00:00: 00 01-14 23:59 :00 No [id number] 1 tablet NEEDED 1 tablet NEEDED (route: oral) Med Classific ation: Central Nervous System Agents ondansetron HCl 8 mg tablet 11-24 00:00: 00 01-14 23:59 :00 No [id number] 1 tablet NEEDED 1 tablet NEEDED (route: oral) Med Classific ation: Gastroint estinal Therapy Agents sertraline 50 mg tablet 11-24 00:00: 00 01-14 23:59 :00 No [id number] 1 tablet DAILY 1 tablet DAILY (route: oral) Med Classific ation: Central Nervous System Agents acyclovir 400 mg tablet 2023-02 00:00: 00 01-14 23:59 :00 No [id number] 1 tablet 2 TIMES DAILY 1 tablet 2 TIMES DAILY (route: oral) Med Classific ation: Anti-Infe ctive Agents Bactrim 400 mg-80 mg tablet 2023-02 00:00: 00 01-14 23:59 :00 No [id number] 1 tablet DAILY 1 tablet DAILY (route: oral) Med Classific ation: Anti-Infe ctive Agents Compazine 10 mg tablet 2023-02 00:00: 00 01-14 23:59 :00 No [id number] 1 tablet NEEDED 1 tablet NEEDED (route: oral) Med Classific ation: Gastroint estinal Therapy Agents Diovan HCT 320 mg-25 mg tablet 2023-02 0-09 00:00: 00 01-14 23:59 :00 No [id number] 1 tablet DAILY 1 tablet DAILY (route: oral) Med Classific ation: Cardiovas cular Therapy Agents ertapenem 1 gram solution for injection 2023-02 0- 00:00: 00 12-08 23:59 :00 No [id number] 1 g DAILY 1 g DAILY (route: injection) Med Classific ation: Anti-Infe ctive Agents esomeprazol e magnesium 20 mg capsule,del ayed release 2023-02 0 00:00: 00 01-14 23:59 :00 No [id number] 1 capsule DAILY 1 capsule DAILY (route: oral) Med Classific ation: Gastroint estinal Therapy Agents folic acid 1 mg tablet 2023-02 0 00:00: 00 01-14 23:59 :00 No [id number] 1 tablet DAILY 1 tablet DAILY (route: oral) Med Classific ation: Electroly te Balance-N utritiona l Products Imodium A-D 2 mg capsule 2023-02 0 00:00: 00 01-14 23:59 :00 No [id number] 1 capsule NEEDED 1 capsule NEEDED (route: oral) Med Classific ation: Gastroint estinal Therapy Agents loratadine 10 mg capsule 2023-02 0- 00:00: 00 01-14 23:59 :00 No [id number] 1 capsule DAILY 1 capsule DAILY (route: oral) Med Classific ation: Respirato ry Therapy Agents magnesium 400 mg (as magnesium oxide) capsule 2023-02 0- 00:00: 00 01-14 23:59 :00 No [id number] 1 capsule 3 TIMES DAILY 1 capsule 3 TIMES DAILY (route: oral) Med Classific ation: Electroly te Balance-N utritiona l Products Multivitami n 50 Plus tablet 2023-02 0-09 00:00: 00 01-14 23:59 :00 No [id number] 1 tablet DAILY 1 tablet DAILY (route: oral) Med Classific ation: Electroly te Balance-N utritiona l Products mycophenola te mofetil 500 mg tablet 2023-02 0-09 00:00: 00 12-08 23:59 :00 No [id number] 2 tablet 3 TIMES DAILY 2 tablet 3 TIMES DAILY (route: oral) Med Classific ation: Immunosup pressive Agents prednisone 20 mg tablet 2023-02 0-09 00:00: 00 01-14 23:59 :00 No [id number] 2 tablet DAILY 2 tablet DAILY (route: oral) Med Classific ation: Endocrine Prevymis 480 mg tablet 2023-02 0-09 00:00: 00 01-14 23:59 :00 No [id number] 1 tablet DAILY 1 tablet DAILY (route: oral) Med Classific ation: Anti-Infe ctive Agents stannous fluoride 0.4 % dental gel 2023-02 0-09 00:00: 00 01-14 23:59 :00 No [id number] 1 inch DAILY 1 inch DAILY (route: dental) Med Classific ation: Mouth-Thr oat-Denta l - Preparati ons tacrolimus 0.5 mg capsule, immediate-r elease 2023-02 0 00:00: 00 01-14 23:59 :00 No [id number] Per instruc tions DIRECTED Per instructio ns DIRECTED (route: oral) Med Classific ation: Immunosup pressive Agents ursodiol 300 mg capsule 2023-02 0-09 00:00: 00 01-14 23:59 :00 No [id number] 1 capsule 3 TIMES DAILY 1 capsule 3 TIMES DAILY (route: oral) Med Classific ation: Gastroint estinal Therapy Agents Voltaren Arthritis Pain 1 % topical gel 2023-02 0-09 00:00: 00 01-14 23:59 :00 No [id number] Per instruc tions NEEDED Per instructio ns NEEDED (route: topical) Med Classific ation: Dermatolo gical acyclovir 400 mg tablet 2023-02 1 00:00: 00 Yes [id number] 1 tablet 3 TIMES DAILY 1 tablet 3 TIMES DAILY (route: oral) Med Classific ation: Anti-Infe ctive Agents colchicine 0.6 mg tablet 2023-02 00:00: 00 Yes [id number] 0.5 tablet EVERY OTHER DAY 0.5 tablet EVERY OTHER DAY (route: oral) Med Classific ation: Gout and Hyperuric emia Therapy cyclobenzap rine 5 mg tablet 2023-02 00:00: 00 Yes [id number] 1 tablet BEDTIME 1 tablet BEDTIME (route: oral) Med Classific ation: Locomotor System D3-5000 125 mcg (5,000 unit) capsule 2023-02 00:00: 00 Yes [id number] 1 capsule DAILY 1 capsule DAILY (route: oral) Med Classific ation: Electroly te Balance-N utritiona l Products diclofenac 1 % topical gel 2023-02 00:00: 00 Yes [id number] Per instruc tions 4 TIMES DAILY Per instructio ns 4 TIMES DAILY (route: topical) Med Classific ation: Dermatolo gical esomeprazol e magnesium 20 mg capsule,del ayed release 2023-02 00:00: 00 Yes [id number] 1 capsule DAILY 1 capsule DAILY (route: oral) Med Classific ation: Gastroint estinal Therapy Agents folic acid 1 mg tablet 2023-02 00:00: 00 Yes [id number] 1 tablet DAILY 1 tablet DAILY (route: oral) Med Classific ation: Electroly te Balance-N utritiona l Products Lidocaine Pain Relief 4 % topical patch 2023-02 00:00: 00 Yes [id number] Per instruc tions DAILY Per instructio ns DAILY (route: topical) Med Classific ation: Dermatolo gical loperamide 2 mg capsule 2023-02 00:00: 00 Yes [id number] 1-2 capsule 4 TIMES DAILY 1-2 capsule 4 TIMES DAILY (route: oral) Med Classific ation: Gastroint estinal Therapy Agents Mg-Plus-Pro tein 133 mg tablet 2023-02 00:00: 00 Yes [id number] 1 tablet 3 TIMES DAILY 1 tablet 3 TIMES DAILY (route: oral) Med Classific ation: Alternati ve Therapy multivitami n tablet 2023-02 00:00: 00 Yes [id number] 1 tablet DAILY 1 tablet DAILY (route: oral) Med Classific ation: Electroly te Balance-N utritiona l Products oxycodone 5 mg tablet 2023-02 00:00: 00 Yes [id number] 1 tablet EVERY 6 HOURS 1 tablet EVERY 6 HOURS (route: oral) Med Classific ation: Analgesic , Anti-infl ammatory or Antipyret ic Prevymis 480 mg tablet 2023-02 00:00: 00 Yes [id number] 1 tablet DAILY 1 tablet DAILY (route: oral) Med Classific ation: Anti-Infe ctive Agents prochlorper azine maleate 10 mg tablet 2023-02 00:00: 00 Yes [id number] 0.5-1 tablet EVERY 6 HOURS 0.5-1 tablet EVERY 6 HOURS (route: oral) Med Classific ation: Gastroint estinal Therapy Agents sertraline 50 mg tablet 2023-02 00:00: 00 Yes [id number] 0.5 tablet DAILY 0.5 tablet DAILY (route: oral) Med Classific ation: Central Nervous System Agents sulfamethox azole 400 mg-trimetho prim 80 mg tablet 2023-02 00:00: 00 Yes [id number] 1 tablet DAILY 1 tablet DAILY (route: oral) Med Classific ation: Anti-Infe ctive Agents tacrolimus 1 mg capsule, immediate-r elease 2023-02 00:00: 00 Yes [id number] 1 mg 2 TIMES DAILY 1 mg 2 TIMES DAILY (route: oral) Med Classific ation: Immunosup pressive Agents Tylenol 8 Hour 650 mg tablet,exte nded release 2023-02 00:00: 00 Yes [id number] 1 tablet EVERY 8 HOURS 1 tablet EVERY 8 HOURS (route: oral) Med Classific ation: Analgesic , Anti-infl ammatory or Antipyret ic valsartan 160 mg tablet 2023-02 00:00: 00 Yes [id number] 1 tablet DAILY 1 tablet DAILY (route: oral) Med Classific ation: Cardiovas cular Therapy Agents Immunizations Ordered Immunization Name Filled Immunization Name Date Status Comments Refusal Reason COVID-19, COVID-19 2021-02-28 00:00:00 INFLUENZA, TIV (INACTIVATED) 2021-02-28 00:00:00 Vital Signs Vital Name Observation Time Observation Value Commen ts Temperature 2024-01-27 13:41:00.000 98.5 [degF] Temperature 2024-01-18 09:52:00.000 97.8 [degF] BMI (%) 2024-01-18 09:52:00.000 26 kg/m2 Height 2024-01-18 09:52:00.000 61 [in_us] Pulse 2024-01-27 13:41:00.000 78 /min Pulse 2024-01-18 09:52:00.000 99 /min O2 Saturation (%) 2024-01-27 13:41:00.000 98 % O2 Saturation (%) 2024-01-18 09:52:00.000 98 % Respirations 2024-01-27 13:41:00.000 16 /min Respirations 2024-01-18 09:52:00.000 18 /min Weight (lbs) 2024-01-18 09:52:00.000 140 [lb_av] Systolic Blood Pressure 2024-01-27 13:41:00.000 114 mm [Hg] Systolic Blood Pressure 2024-01-18 09:52:00.000 134 mm [Hg] Diastolic Blood Pressure 2024-01-27 13:41:00.000 70 mm [Hg] Diastolic Blood Pressure 2024-01-18 09:52:00.000 68 mm [Hg] Plan of Treatment Planned Activity Planned Date Details Comments Future Scheduled Test SKILLED NU RSE TO EVALUATE PATIENT, IDENTIFY PRIMARY AND CO-MORBID CONDITIONS CODED PER CODING GUIDELINES, AND DEVELOP PATIENT SPECIFIC PLAN OF CARE THAT INCLUDES PATIENT GOAL FOR HOME HEALTH. 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 [code = SKILLED NURSE FOR O/A, TEACHING, AND MANAGEMENT OF HTN, HLD.] Future Scheduled Test SKILLED NU RSE FOR O/A AND SKILLED TEACHING RELATED TO SIGNS AND SYMPTOMS OF INFECTION AND INFECTION CONTROL MEASURES. [code = SKILLED NURSE FOR O/A AND SKILLED TEACHING RELATED TO SIGNS AND SYMPTOMS OF INFECTION AND INFECTION CONTROL MEASURES.] Future Scheduled Test SKILLED NU RSE TO PERFORM AND RECORD BLOOD SUGAR READING PRN FOR SIGNS AND SYMPTOMS OF HYPO/HYPERGLYCEMIA. [code = SKILLED NURSE TO PERFORM AND RECORD BLOOD SUGAR READING PRN FOR SIGNS AND SYMPTOMS OF HYPO/HYPERGLYCEMIA.] Future Scheduled Test SKILLED NU RSE FOR O/A OF MUSCULOSKELETAL STATUS AND TEACHING ON MEASURES TO MANAGE R WRIST PAINAND TO MAINTAIN SAFETY WITH ACTIVITY [code = SKILLED NURSE FOR O/A OF MUSCULOSKELETAL STATUS AND TEACHING ON MEASURES TO MANAGE R WRIST PAINAND TO MAINTAIN SAFETY WITH ACTIVITY] Future Scheduled Test PHYSICAL T HERAPIST TO EVALUATE PATIENT FOR STRENGTHENING [code = PHYSICAL THERAPIST TO EVALUATE PATIENT FOR STRENGTHENING ] Future Scheduled Test SKILLED NU RSE FOR O/A AND TEACHING OF DIABETIC MANAGEMENT INCLUDING BLOOD SUGAR MONITORING/USE OF GLUCOMETER, DIABETIC DIET, LOWER EXTREMITY SKIN INSPECTION, PROPER SKIN/FOOT CARE, AND SIGNS AND SYMPTOMS HYPO/HYPERGLYCEMIA TO REPORT. [code = SKILLED NURSE FOR O/A AND TEACHING OF DIABETIC MANAGEMENT INCLUDING BLOOD SUGAR MONITORING/USE OF GLUCOMETER, DIABETIC DIET, LOWER EXTREMITY SKIN INSPECTION, PROPER SKIN/FOOT CARE, AND SIGNS AND SYMPTOMS HYPO/HYPERGLYCEMIA TO REPORT.] Future Scheduled Test SKILLED NU RSE FOR O/A AND SKILLED TEACHING RELATED TO SIGNS AND SYMPTOMS AND MANAGEMENT OF OA OF RIGHT WRIST. [code = SKILLED NURSE FOR O/A AND SKILLED TEACHING RELATED TO SIGNS AND SYMPTOMS AND MANAGEMENT OF OA OF RIGHT WRIST.] Future Scheduled Test VIRTUAL SIT FREQUENCY: 3-4 PRN VIRTUAL VISITS FOR HIGH RISK ASSESSMENTS AND/OR CHANGE IN STATUS MAY BE PERFORMED UTILIZING [employer] SYSTEM TO OPTIMIZE SKILLED SERVICES FURNISHED ON THE PLAN OF CARE. SKILLED NURSE TO ESTABLISH SUPPORT MEASURES TO MINIMIZE RISK OF REHOSPITALIZATION, AND INSTRUCT PATIENT/CAREGIVER ON METHODS TO REDUCE AVOIDABLE HOSPITALIZATION. [code = VIRTUAL VISIT FREQUENCY: 3-4 PRN VIRTUAL VISITS FOR HIGH RISK ASSESSMENTS AND/OR CHANGE IN STATUS MAY BE PERFORMED UTILIZING [employer] SYSTEM TO OPTIMIZE SKILLED SERVICES FURNISHED ON THE PLAN OF CARE. SKILLED NURSE TO ESTABLISH SUPPORT MEASURES TO MINIMIZE RISK OF REHOSPITALIZATION, AND INSTRUCT PATIENT/CAREGIVER ON METHODS TO REDUCE AVOIDABLE HOSPITALIZATION.] Future Scheduled Test PATIENT ESCUDERO S A RISK OF HOSPITALIZATION AND ED USE. SKILLED NURSE TO ESTABLISH SUPPORT MEASURES TO MINIMIZE RISK OF HOSPITALIZATION AND ED USE, AND INSTRUCT PATIENT/CAREGIVER ON METHODS TO REDUCE AVOIDABLE HOSPITALIZATION AND ED USE. [code = PATIENT HAS A RISK OF HOSPITALIZATION AND ED USE. SKILLED NURSE TO ESTABLISH SUPPORT MEASURES TO MINIMIZE RISK OF HOSPITALIZATION AND ED USE, AND INSTRUCT PATIENT/CAREGIVER ON METHODS TO REDUCE AVOIDABLE HOSPITALIZATION AND ED USE.] Future Scheduled Test SKILLED NU RSE TO PROVIDE INSTRUCTION TO PATIENT/CAREGIVER RELATED TO DISCHARGE PLANNING. [code = SKILLED NURSE TO PROVIDE INSTRUCTION TO PATIENT/CAREGIVER RELATED TO DISCHARGE PLANNING.] Future Scheduled Test SKILLED NU RSE TO PERFORM ENVIRONMENTAL SAFETY RISK ASSESSMENT AND FALL RISK ASSESSMENT AND PROVIDE INSTRUCTION TO IMPLEMENT ENVIRONMENTAL SAFETY AND FALL PREVENTION STRATEGIES THROUGHOUT THE CERTIFICATION PERIOD. SKILLED NURSE WILL MAINTAIN SITUATIONAL AWARENESS AND WILL NOTIFY CLINICAL POLE MAKER AND PHYSICIAN/PROVIDER WITH ANY CHANGE IN CONDITION. [code = SKILLED NURSE TO PERFORM ENVIRONMENTAL SAFETY RISK ASSESSMENT AND FALL RISK ASSESSMENT AND PROVIDE INSTRUCTION TO IMPLEMENT ENVIRONMENTAL SAFETY AND FALL PREVENTION STRATEGIES THROUGHOUT THE CERTIFICATION PERIOD. SKILLED NURSE WILL MAINTAIN SITUATIONAL AWARENESS AND WILL NOTIFY CLINICAL POLE MAKER AND PHYSICIAN/PROVIDER WITH ANY CHANGE IN CONDITION.] Future Scheduled Test SKILLED NU RSE FOR OBSERVATION AND ASSESSMENT OF PATIENTS PAIN LEVEL AND EFFECTIVENESS OF PAIN MANAGEMENT REGIMEN. SKILLED NURSE TO INSTRUCT PATIENT/CAREGIVER REGARDING PHARMACOLOGIC AND NON-PHARMACOLOGIC PAIN CONTROL MEASURES. SKILLED NURSE TO REPORT TO PHYSICIAN IF PAIN IS UNCONTROLLED WITH CURRENT PAIN MANAGEMENT REGIMEN. [code = SKILLED NURSE FOR OBSERVATION AND ASSESSMENT OF PATIENTS PAIN LEVEL AND EFFECTIVENESS OF PAIN MANAGEMENT REGIMEN. SKILLED NURSE TO INSTRUCT PATIENT/CAREGIVER REGARDING PHARMACOLOGIC AND NON-PHARMACOLOGIC PAIN CONTROL MEASURES. SKILLED NURSE TO REPORT TO PHYSICIAN IF PAIN IS UNCONTROLLED WITH CURRENT PAIN MANAGEMENT REGIMEN.] Future Scheduled Test SKILLED NU RSE TO ASSESS PATIENT'S SKIN INTEGRITY AND INSTRUCT PATIENT/CAREGIVER ON MEASURES TO PREVENT PRESSURE ULCERS. [code = SKILLED NURSE TO ASSESS PATIENT'S SKIN INTEGRITY AND INSTRUCT PATIENT/CAREGIVER ON MEASURES TO PREVENT PRESSURE ULCERS.] Future Scheduled Test PHYSICAL T HERAPY TO EVALUATE AND TREAT. PHYSICAL THERAPY EVALUATION PERFORMED. NO ADDITIONAL VISITS REQUIRED. [code = PHYSICAL THERAPY TO EVALUATE AND TREAT. PHYSICAL THERAPY EVALUATION PERFORMED. NO ADDITIONAL VISITS REQUIRED.] Goal Patient Goal - TO BE PAIN FR EE Goal Provider Goal - A PLAN OF CARE WILL BE ESTABLISHED THAT MEETS PATIENT'S LONG TERM NEEDS AND INCLUDES PATIENT GOAL FOR HOME HEALTH. Goal Provider Goal - PATIENT/CAREGIVER WILL VERBALIZE/DEMONSTRATE MANAGEMENTMYELODYSPLASTIC SYNDROME WITH EXCESS BLAST-1I OF DISEASE AND THE SIDE EFFECTS OF TREATMENTS DURING THIS EPISODE. Goal Provider Goal - PATIENT/CAREGIVER WILL VERBALIZE/DEMONSTRATE MANAGEMENT OF CARDIAC DISEASE PROCESS AND EXACERBATIONS WILL BE IDENTIFIED AND PROMPTLY REPORTED THROUGHOUT THE CERTIFICATION PERIOD. Goal Provider Goal - PATIENT/CAREGIVER WILL VERBALIZE/DEMONSTRATE UNDERSTANDING OF S/S OF INFECTION AND INFECTION CONTROL MEASURES. SIGNS AND SYMPTOMS OF INFECTION WILL BE IDENTIFIED AND PHYSICIAN NOTIFIED FOR PROMPT INTERVENTION THROUGHOUT THE CERTIFICATION PERIOD. Goal Provider Goal - BLOOD SUGAR READING WILL BE OBTAINED ORDERED THROUGHOUT CERTIFICATION PERIOD. Goal Provider Goal - PATIENT/CAREGIVER WILL VERBALIZE/DEMONSTRATE ABILITY TO MANAGE R WRIST PAIN MUSCULOSKELETAL DISEASE WHILE MAINTAINING SAFETY THROUGHOUT THE EPISODE. Goal Provider Goal - A PHYSICAL THERAPY EVALUATION TO BE COMPLETED WITH RECOMMENDATIONS AND/OR WRITTEN PLAN OF TREATMENT ESTABLISHED FOR PHYSICIANS SIGNATURE. Goal Provider Goal - PATIENT/CAREGIVER WILL VERBALIZE/DEMONSTRATE KNOWLEDGE OF DIABETIC MANAGEMENT. CHANGES IN DIABETIC STATUS WILL BE IDENTIFIED AND REPORTED TO PHYSICIAN FOR PROMPT INTERVENTION THROUGHOUT THE CERTIFICATION PERIOD. Goal Provider Goal - PATIENT/CAREGIVER WILL VERBALIZE UNDERSTANDING OF MUSCULOSKELETAL DISEASE INCLUDING SIGNS AND SYMPTOMS, MANAGEMENT, AND PRESCRIBED TREATMENT REGIMEN BY END OF EPISODE. Goal Provider Goal - PATIENT/CAREGIVER WILL UTILIZE VIRTUAL VISITS TO ACHIEVE GOALS OUTLINED ON THE PLAN OF CARE. PATIENT WILL HAVE SUPPORT MEASURES ESTABLISHED TO PREVENT HOSPITALIZATION AND PATIENT/CAREGIVER WILL VERBALIZE/DEMONSTRATE METHODS TO REDUCE AVOIDABLE HOSPITALIZATION THROUGHOUT THE CERTIFICATION PERIOD. Goal Provider Goal - PATIENT WILL HAVE SUPPORT MEASURES ESTABLISHED TO PREVENT HOSPITALIZATION AND ED USE AND PATIENT/CAREGIVER WILL VERBALIZE/DEMONSTRATE METHODS TO REDUCE AVOIDABLE HOSPITALIZATION AND ED USE BY END OF EPISODE. Goal Provider Goal - PATIENT/CAREGIVER WILL VERBALIZE UNDERSTANDING OF DISCHARGE PLANNING INSTRUCTIONS BY DATE OF DISCHARGE. Goal Provider Goal - PATIENT/CAREGIVER WILL VERBALIZE/DEMONSTRATE EFFECTIVE ENVIRONMENTAL SAFETY AND FALL PREVENTION STRATEGIES, WILL REMAIN SAFE IN THE COMMUNITY, AND WILL BE FREE OF DANGER TO SELF AND OTHERS THROUGHOUT THE CERTIFICATION PERIOD. Goal Provider Goal - PATIENT/CAREGIVER WILL DEMONSTRATE UNDERSTANDING OF PHARMACOLOGIC AND NONPHARMACOLOGIC PAIN CONTROL MEASURES AND PATIENT WILL HAVE IMPROVEMENT IN PAIN INTERFERING WITH ACTIVITY EVIDENCED BY PAIN CONTROLLED AT LEVEL OF 7 OR LESS BY END OF CERTIFICATION PERIOD. Goal Provider Goal - PATIENT/CAREGIVER WILL VERBALIZE UNDERSTANDING OF PRESSURE ULCER PREVENTION BY END OF THE EPISODE. Goal Provider Goal - PT INITIAL EVALUATION SUMMARY: PATIENT IS A 73-YEAR-OLD FEMALE WITH PRIOR MEDICAL HISTORY LISTED IN CHART PRESENTS REFERRAL FOR HOME PT SERVICES FOLLOWING INPATIENT ADMISSION FOR A TRAUMATIC ONSET OF NECK AND BILATERAL UPPER EXTREMITY PAIN IN SETTING OF RECENT STEROID TAPER AND POLYARTHRITIS. SINCE DISCHARGE HOME PATIENT REPORTS THAT SYMPTOMS HAVE BEEN RESOLVING. PLOF: PATIENT IS INDEPENDENT WITH COMMUNITY LEVEL MOBILITY AT BASELINE WITHOUT ASSISTIVE DEVICE USE, SHE OWNS A STRAIGHT CANE BUT DOES NOT UTILIZE IT. SHE DENIES PRIOR FALLS HISTORY. SHE LIVES WITH HER SPOUSE IN SINGLE FAMILY [place] WITH FLIGHT OF STAIRS TO BEDROOM. PHYSICAL EXAMINATION FINDINGS TODAY SIGNIFICANT FOR SYMPTOM RELIEF WITH UPPER EXTREMITY SUPPORT, EXPECT LOAD SENSITIVITY PATIENT REPORTS THAT HER INITIAL ONSET OF NECK PAIN WAS DUE TO PROLONGED READING. EDUCATED PATIENT ON APPROPRIATE UPPER EXTREMITY POSITIONING AND SEATED AND SUPINE POSITIONS IN ORDER TO DECREASE STRESS ON CERVICAL SPINE/THORACIC SPINE. EDUCATED PATIENT ON UTILIZING REST BREAKS AND AVOIDING PROLONGED SEATED POSITIONS IN ORDER TO MITIGATE POTENTIAL OF EXACERBATING SYMPTOMS. PATIENT REPORTS THAT SHE DOES NOT RECOGNIZE NECK PAIN WITH MAJORITY OF TASKS UNLESS IT IS SITTING AND READING. OTHERWISE PATIENT IS INDEPENDENT WITH ALL FUNCTIONAL MOBILITY TASKS, SHE DOES NOT REQUIRE PHYSICAL ASSISTANCE FOR BED MOBILITY, TRANSFERS, LEVEL/UNLEVEL SURFACE AMBULATION, AND STAIR NAVIGATION. SHE IS NOT CATEGORIZED FALLS RISK GIVEN HER CURRENT 30 SECOND [id number] SCORES AND 6 MINUTE WALK TEST SCORE. BOTH ARE WITHIN NORMAL LIMITS FOR COMMUNITY DWELLING ELDERS IN HER AGE GROUP. PT EVALUATION ONLY, PATIENT IN AGREEMENT WITH CURRENT PLAN. MD OFFICE NOTIFIED. EDUCATED PATIENT ON-CALL US FIRST POLICY, SURVEY, AND ON-CALL HOURS. Encounters Start Date/Time End Date/Time Encounter Type Admission Type Attending Clinicians Care Facility Care Department Encounter ID Discharge Date Discharge Status Discharge Condition Discharge Reason Percent Goals Met 2024-01-18 00:00:00 2024-03-17 00:00:00 Outpatient [facility] [id number]. [id number]
--- OUTSIDE RECORDS SUMMARY | 2024-02-10 13:13 | XMS_ITS | Patient Health Record ---
Author Organization Gilberto Cunha III, MD Address [address] [place] [address] [place] [address] Care Team Providers Care Front Office Java Developer Name Role Phone RASHEEDA UMANA MD Primary Care Provider Gilberto Gardiner Unavailable [phone] Allergies Allergen (clinical drug ingredient) Drug/Non Drug Allergy documented on EMR Reaction Allergy Type Onset Date Status epinephrine Epinephrine Unknown Drug Allergy Act lucero Vicodin Unknown Drug Allergy Active tramadol Ultram Unknown Drug Allergy Active Reason For Referral No Information Medications Medication SIG (Take, Route, Frequency, Duration) Notes Start Date End Date Status Simvastatin 20 MG Oral Ac tive Valsartan-hydroCHLOROthiazi de 320-25 MG Oral Active Social History Tobacco Use: Social History Observation Description Date Details (start date - stop date) Former Smoker NA - NA Sex Assigned At : Social History Observation Description Sex Assigned At Female Tobacco Use/Smoking Question Answer Notes Patient is a former smoker How long has it been since you last smoked? > 10 years Additional Findings: Tobacco Non-User Ex-cigaret te smoker Alcohol Screen Question Answer Notes Did you have a drink containing alcohol in the p ast year? No Points 0 Interpretation Negative Problems Problem Type SNOMED Code ICD Code Onset Dates Problem Status W/U Status Risk Notes Problem 986311342 Overweight (E66.3) Active confirmed She is mildly overweight. We discussed her diet. We recommended weight reduction of a half weeks. Her diet restriction fat calories and sodium. Problem 695986177 Pancytopenia (D61.818) Active confirmed She does not castillo ve hypersplenism even though she has rheumatoid arthritis. She has a progressive pancytopenia with a neutrophil count of 900. Her platelets have fallen 218,000. This will be observed carefully. The B12 and folic acid are normal. Repeat blood work has been ordered. Likely diagnosis is myelodysplastic syndrome. Her bone marrow showed normal trilineage hematopoiesis. Problem 582701462 Mixed hyperlipidemia (E78.2) Active confirmed As of this will be checked periodically. Problem 62216940 Essential hypertension (I10) Active confirmed Her blood pressure is stable today on her current regimen and no changes seem necessary. Problem 568315599 MGUS (monoclonal gammopathy of unknown significance) (D47.2) Active confirmed She does not me et criteria for multiple myeloma. She will be observed at frequent intervals. 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 She has never had a bone marrow biopsy. If it is indicated or will be done. Problem 548488422 Multinodular goiter (E04.2) Active confirmed She is under the care of an second time worker, Dr. Hager. 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 Problem 625734766 Adenomatous polyps (D36.9) Active confirmed Problem 967997347 Type 2 diabetes mellitus without complication, without long-term current use of insulin (E11.9) Active confirmed Her diabetes is being managed by primary care. She appear to be stable today. Encounters Encounter Location Date Provider Diagnosis Gilberto Cunha III, MD [address] [place] [address] DR [address] [place] [address] 02/10/2023 Gilberto Cunha III, MD [address] [place] [address] [place] [address] 03/24/2023 Gilberto Cunha Plan Of Treatment Pending Test Test Name Order Date PATHOLOGIST REVIEW BLOOD SMEAR PROFILE, RANDOM (COMPREHENSIVE METABOLIC ) 12/17/2022 PROFILE, RANDOM (COMPREHENSIVE METABOLIC ) 10/26/2022 FERRITIN 12/17/2022 CBC w DIFF 11/15/2022 IMMUNOFIXATION PANEL, SERUM (IEP) 2022 PROTEIN ELECTROPHORESIS, SERUM BETA-2 MICROGLOBULIN, SERUM 10/26/2022 FREE KAPPA LAMBDA, SERUM K/L RATIO 12/17 FREE KAPPA LAMBDA, SERUM K/L RATIO 10/26 KAPPA LAMBDA SER 10/26/2022 KAPPA LAMBDA SER 12/17/2022 CBC WITH AUTO DIFF 12/17/2022 Vitamin B12 12/17/2022 Folate 12/17/2022 Beta-2 Microglobulin, Serum 12/17/2022 Insurance Providers Payer Name Payer Address Payer Phone Subscriber Number Group Number Insured Name Patient Relationship to Insured Coverage Start Date Coverage End Date MEDICARE NGS [address] [place] [address] [id number] HOWARD GUTIÉRREZ Self - patient is the insured [facility] [address] [place], [place] [id number] [phone] [id number] HOWARD GUTIÉRREZ Self - patient is the insured Medical (General) History Medical History History ICD Code Monoclonal gammopathy IgG-lambda Every year Colonoscopy Every 2 years Endoscopy Echevarria Syndrome Pancytopenia Macrocytosis Hyperlipidemia Hypertension Diabetes Degenerative joint disease lumbar spine Chronic low back pain Multinodular goiter Overweight Tubular adenomas Surgical History Surgery Date(Month/Year) Tonsillectomy 1955 Labiaectomy 1995 L5,S1 Microdisectomy 1999 Sling procedure 2006 Hysterectomy with 2016 colonoscopy
--- OUTSIDE RECORDS SUMMARY | 2024-02-10 13:13 | XMS_ITS ---
Author Organization Gilberto Cunha III, MD Address [address] [place] [address] [place] [address] Care Team Providers Care Corporate Communications Specialist Name Role Phone RASHEEDA UMANA MD Primary Care Provider Unavaila Gilberto Carmichael [phone] REASON FOR VISIT Follow up Social History Sex Assigned At : Social History Observation Description Sex Assigned At Female Encounters Encounter Location Date Provider Diagnosis Gilberto Cunha III, MD [address] [place] [address] [place] [address] 04/19/2023 Gilberto Cunha Plan Of Treatment No Information Progress Notes * HOWARD GUTIÉRREZOB: (73 yo F)Acc No.[id number]:04/19/2023 Progress Notes Patient:?HOWARD GUTIÉRREZ Provider:?Gilberto Cunha MD :1950???Age:73 Y???Sex:Female D ate:04/19/2023 Address:[address] [place], [place] [id number] Pcp:RASHEEDA UMANA MD Subjective: * Chief Complaints: * ???1. Follow up. * Medical History:? Objective: * Vitals:? Assessment: Plan: * Treatment: * Images: * The named appointment provid er may or may not be the originator of this progress note, and it is not deemed complete until electronically signed by the appointment provider. Sign off status: Pending * Provider:?Gilberto Cunha MD Date:?04/01 Generated for Joel crespo/[facility] on:?02/10/2024 01:12 PM EST
--- OUTSIDE RECORDS SUMMARY | 2024-02-10 13:13 | XMS_ITS ---
Author Organization Gilberto Cunha III, MD Address [address] [place] [address] Care Team Providers Care Backpackers Manager Name Role Phone RASHEEDA UMANA MD Primary Care Provider Unavaila Gilberto Carmichael [phone] REASON FOR VISIT cancelled appt of 04/19/2023 Social History Sex Assigned At : Social History Observation Description Sex Assigned At Female Encounters Encounter Location Date Provider Diagnosis Gilberto Cunha III, MD [address] [place] [address] [place] [address] 03/24/2023 Gilberto Cunha Plan Of Treatment No Information Progress Notes * HOWARD GUTIÉRREZOB: (72 yo F)Acc No.[id number]:03/24/2023 Patient:?HOWARD GUTIÉRREZ :1950???Age:72 Y???Sex:Female Address:[address] [place] [address], [address] * true * Date:? Generated for Audreyi zak/Sal/eTransmitting on:?02/10/2024 01:12 PM EST
--- NOTE | 2024-02-10 13:14 | A.SPINEOV_ITS ---
Intake Visit Reasons: severe neck pain Intake Note: Mrs. Ojeda is here today c/o severe neck pain. Bleach Chlorinator Required: No Allergies hydrocodone [From Vicodin] Allergy (Unknown, Verified 02/10/24 13:15) vomiting and passing out acetaminophen [From Vicodin] Adverse Reaction (Unknown, Verified 02/10/24 13:15) vomiting and passing out metformin Adverse Reaction (Verified 02/10/24 13:15) burning in feet Tramadol & Dietary Manage Prod Allergy (Unknown, Uncoded 09/20/23 10:05) vomiting and passing out Assessment & Plan Assessment & Plan (1) Osteoarthritis cervical spine: Code(s): M47.812 - Spondylosis without myelopathy or radiculopathy, cervical region Category: Medical Qualifiers: Spinal osteoarthritis complication: without myelopathy or radiculopathy Qualified Code(s): M47.812 - Spondylosis without myelopathy or radiculopathy, cervical region Plan Dear colleague, On 02/10/2024, I saw Jaqueline Ojeda for neck pain. I previously saw for low back pain and neurogenic claudication due to a grade 2 L4-5 spondylolisthesis. We discussed surgery at that point but she was going to be treated for leukemia. 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 Today she actually comes in for severe neck pain which already has resolved. She stated that she had severe neck pain with movement in all directions. She thinks she may have done too much flexion of the neck with excessive reading. The bottom line is that the symptoms have disappeared. She denies radiating pain down her arms. She does complain of some midthoracic pain that radiates bilaterally anteriorly. On exam, there are no pathological reflexes. Motor and sensory exam are intact. There is no sensory level. I reviewed MRI imaging from [facility] with the patient that involves the cervical thoracic and lumbar spine and I do not see any surgical abnormalities that need to be addressed. I will see the patient on a p.r.n. basis. I consult to review imaging and to discussing the findings and plan of care. Thank you for allowing me take care of your patient. Godwin Brand MD, PhD Spine Fellowship Trained Neurosurgeon Director, [facility] Coding Level of Care Code Est Pt Level 4 (13281) Diagnoses Spondylosis of cervical region without myelopathy or radiculopathy M47.812 Spinal osteoarthritis complication: without myelopathy or radiculopathy
== END 2024-02-10 15:14 | disposition home or self-care (01) ==
PROVIDERS: PCP Internal Medicine; Visit Provider Neurological Surgery
DX: M47.812 Spondylosis without myelopathy or radiculopathy, cervical region (principal)
CPT/HCPCS: 99214

== ENCOUNTER → 2024-02-10 13:10 | Outpatient (BNVA) | payer MEDICARE, SELFPAY | PROVIDERS: PCP Internal Medicine; Visit Provider Neurological Surgery | DX: M47.812 Spondylosis without myelopathy or radiculopathy, cervical region (principal) | CPT/HCPCS: 99212 ==

== ENCOUNTER 2024-05-24 13:12 | Outpatient (REF) | payer MEDICARE, SELFPAY ==
--- NOTE | ~2024-05-24 | MM_ITS ---
EXAMINATION: DXA BONE DENSITY AXIAL HISTORY: Estrogen deficiency TECHNIQUE: [employer] Dual energy absorptiometry (DEXA) of the lumbar spine, total left hip, and femoral neck was performed. COMPARISON: There are no prior studies for comparison. FINDINGS: The bone mineral density of the lumbar spine is 1.190 with a T-score of 0.2, and a Z-score of 2.1. This is indicative of normal bone mineral density. The bone mineral density of the left total hip is 0.903 with a T-score of -0.8, and a Z-score of 1.0. This is indicative of normal bone mineral density. The bone mineral density of the left femoral neck is 0.797 with a T-score of -1.7, and a Z-score of 0.3. This is indicative of osteopenia. FRACTURE RISK: The FRAX index suggests a risk of major osteoporotic fracture of 11.9%, and of hip fracture 2.6%. MM/XR DEXA axial skeleton IMPRESSION: Based on bone mineral density, and according to World Health Organization (WHO) criteria, the diagnosis is consistent with osteopenia. All bone density values are in grams per centimeter squared (g/cm2). Statistically, 68% of repeat scans fall within 1 SD (+/- 0.010 g/cm2 for AP spine L1-L4) and 1 SD (+/- 0.012 g/cm2 for femur total) FRAX is a trademark of the [employer]'s [place] for Metabolic Bone Disease, a World Health Organization (WHO) Collaborating Center. Electronically signed by: Gilberto Larson MD 05/24/2024 02:21 PM EDT
== END 2024-05-24 13:13 | disposition home or self-care (01) ==
LOC: HO.MAMMO 13:12
PROVIDERS: PCP Internal Medicine; Visit Provider Internal Medicine
DX: Z13.820 Encounter for screening for osteoporosis (principal); Z78.0 Asymptomatic menopausal state
CPT/HCPCS: 77080

== ENCOUNTER → 2024-05-24 13:30 | Outpatient (BNV) | payer MEDICARE, SELFPAY | PROVIDERS: PCP Internal Medicine; Visit Provider Radiology Diagnostic Radiology | DX: E28.39 Other primary ovarian failure (principal) | CPT/HCPCS: 77080 ==

== ENCOUNTER 2024-08-14 10:33 | Outpatient (AMB) | payer MEDICARE, SELFPAY ==
[2024-08-14 11:05] VITALS: BP 108/66; PULSE 78; RESP 18; TEMP 36.8; O2SAT 98; BMI 25.4
--- NOTE | 2024-08-14 11:05 | A.OFFPC_ITS ---
Vital Signs 08/14/24 11:05 Height 5 ft 2 in Weight 139 lb BMI 25.4 BP 108/66 Blood Pressure Location Lt brachial Position Sitting Respiration 18 Pulse 78 Pulse Source Pulse Oximeter Temp 98.3 F Temp Source Oral Pulse Oximetry (%) 98 Oxygen Delivery Method Room Air Intake Visit Reasons: follow up Intake Note: Pt is here today for a follow up visit. Allergies hydrocodone [From Vicodin] Allergy (Unknown, Verified 08/14/24 11:06) vomiting and passing out acetaminophen [From Vicodin] Adverse Reaction (Unknown, Verified 08/14/24 11:06) vomiting and passing out metformin Adverse Reaction (Verified 08/14/24 11:06) burning in feet Tramadol & Dietary Manage Prod Allergy (Unknown, Uncoded 08/14/24 11:06) vomiting and passing out Medication List - Last Reconciled 08/14/24 by Dorinda Melendez MD acyclovir 400 mg PO TID allopurinol 100 mg PO DAILY blood sugar diagnostic (FreeStyle Lite Strips) test blood sugar daily blood-glucose meter (FreeStyle Lite Meter kit) As directed [calcium 100mg ] cholecalciferol (vitamin D3) (Vitamin D3) 150 mcg PO DAILY folic acid 1 mg PO DAILY lancets (FreeStyle Lancets) Test blood sugar once a day multivitamin 1 tab PO DAILY omeprazole 20 mg PO BID sertraline 25 mg PO DAILY sulfamethoxazole-trimethoprim 400-80 mg 1 tab PO DAILY valsartan 80 mg PO DAILY Tobacco use date assessed: 08/14/24 Fall risk assessment: No Falls in past year Last assessed Fall Risk: 08/14/24 Dental Screening Dental Screen Date: 08/14/24 Did you have a dental visit in the last 12 months?: Yes Did you have a dental problem in the last 6 months where you did not have access to dental care?: No Was dental information given to patient?: Patient has dentist HPI follow up HPI Details Pt presents for f/u of HTN, stable on Valsartan. Patient undergoing chemo treatment after stem cell transplant at [facility]. Chronic anxiety and depression stable on sertraline. Patient can not take statin because of interaction with chemotherapy. [facility] Medical History (Updated 08/14/24 @ 15:10 by Dorinda Melendez MD) MDS (myelodysplastic syndrome) Cehevarria syndrome Breast pain, left Impaired glucose tolerance Multinodular goiter DJD (degenerative joint disease) Nephrolithiasis Hyperlipidemia HTN (hypertension) Surgical History H/O: hysterectomy History of esophagogastroduodenoscopy (EGD) History of bilateral oophorectomy History of total hysterectomy Family History (Updated 08/14/24 @ 11:15 by CARLA Moreno) Father Cancer Mother Cancer HTN (hypertension) Social History Household Members: Spouse Housing: House Alcohol intake: current Alcohol intake frequency: a few times a month Patient Tobacco Use Status: Former Tobacco user Tobacco use type: Cigarette e-Cigarette/Vaping Use: Never Used service: No Current occupational status: retired Current occupational exposures/hazards: No Cognitive needs: No Hearing needs: No Vision needs: Yes Questionnaire PHQ-9 Over the last 2 weeks, how often have you been bothered by any of the following problems? 1. Little interest or pleasure in doing things: not at all 2. Feeling down, depressed, or hopeless: not at all 3. Trouble falling or staying asleep, or sleeping too much: not at all 4. Feeling tired or having little energy: not at all 5. Poor appetite or overeating: not at all 6. Feeling bad about yourself - or that you are a failure or have let yourself or your family down: not at all 7. Trouble concentrating on things, such as reading the newspaper or watching te levision: not at all 8. Moving or speaking so slowly that other people could have noticed. Or the opposite - being so fidgety or restless that you have been moving around a lot more than usual: not at all 9. Thoughts that you would be better off or of hurting yourself in some way: not at all Total score: 0 Depression Screening Interpretation: Negative Depression Screening Done: Yes 54393 - PHQ-9 Billing: Yes Source: Developed by Drs. Gilberto Lopez, Bria Frank, Sukh Jon and colleagues, with an educational merlin from [employer]. Thrive Questionnaire Date Thrive assessed: 08/14/24 I am a: Patient What is your living situation today?: I have a steady place to live Within the past 12 months, did the food you bought not last and you didn't have the money to get more?: Never true Within the past 12 months, did you worry whether your food would run out before you got money to buy more?: Never true Do you have trouble paying for medicines?: No Do you have trouble getting transportation to medical appointments?: No Do you have trouble paying your heating and electricity bill?: No Do you have trouble taking care of your child, family member or friend?: No Do you have trouble with day-to-day activities such as bathing, preparing meals, shopping, managing finances, etc.?: No Are you currently unemployed and looking for a job?: No Are you interested in more education?: No Please select the resources that you would like help with: None Currently or been in a relationship where the following occur: No concerns reported THRIVE Score: 0 AUDIT C Alcohol Use Questionnaire (AUDIT-C) 1. How often do you have a drink containing alcohol?: Never 3. How often do you have six or more drinks on one occasion?: Never Total Score: 0 ANAY-7 AMB Questionnaire ANAY-7 Date ANAY - 7 assessed: 08/14/24 Feeling nervous, anxious, or on edge: 0 = Not at all Not being able to stop or control worryin = Not at all Worrying too much about different things: 0 = Not at all Trouble relaxin = Not at all Being so restless that it is hard to sit still: 0 = Not at all Becoming easily annoyed or irritable: 0 = Not at all Feeling afraid as if something awful might happen: 0 = Not at all Total ANAY-7 score (0-4 normal; 5-9 mild; 10-14 moderate; 15-21 severe): 0 Source: Developed by Drs. Gilberto Lopez, Bria Frank, Sukh Jon and colleagues, with an educational merlin from [employer]. ANAY-7 Assessment Billing ANAY-7 Assessment Tool: ANAY-7 Assessment 73925 Review of Systems Const All systems reviewed & are unremarkable except as noted in HPI and below Eyes Reports no additional complaints ENT Reports no additional complaints Card Reports no additional complaints Resp Reports no additional complaints GI Reports no additional complaints Reports no additional complaints Physical exam (Primary Care) Vital Signs: Last Vital Signs Temp 98.3 F 08/14/24 11:05 Pulse 78 08/14/24 11:05 Resp 18 08/14/24 11:05 BP 108/66 08/14/24 11:05 Pulse Ox 98 08/14/24 11:05 Oxygen Delivery Method Room Air 08/14/24 11:05 BMI result Body Mass Index 25.4 Tobacco/Smoking Status: Tobacco use Status Tobacco use date assessed 08/14/24 08/14/24 11:08 Patient Tobacco Use Status Former Tobacco user 08/14/24 11:08 Tobacco use type Cigarette 08/14/24 11:06 e-Cigarette/Vaping Use Never Used 08/14/24 11:06 PHQ-9: PHQ-9 Score PHQ-9: Total score 0 08/14/24 11:50 Depression Screening Interpretation: Negative Thrive Assessment: Date of Thrive Assessment Date Thrive assessed 08/14/24 08/14/24 11:17 Currently or been in a relationship where the following occur: No concerns reported Const General: no acute distress HENMT Head: Yes normal to inspection Neck Neck: Yes supple Resp Effort & Inspection: normal respiratory effort Auscultation: clear to auscultation bilaterally Cardio Rhythm: regular rhythm Heart sounds: S1 normal heart sound present and S2 normal heart sound present GI Inspection: Yes normal to inspection Palpation (GI): Soft to palpation Percussion: Yes normal to percussion Coding Level of Care Code Est Pt Level 4 (36200) Diagnoses MDS (myelodysplastic syndrome) D46.9 Hyperlipidemia E78.5 HTN (hypertension) I10 Additional Codes ANAY-7 Assessment Billing - ANAY-7 Assessment Tool: ANAY-7 Assessment 60996 ([id number]) PHQ-9 - 00217 - PHQ-9 Billing: Yes ([id number]) Assessment & Plan Assessment & Plan (1) MDS (myelodysplastic syndrome): Comment: F/U [facility] for allogenic bone marrow transplant 04/23, on chemotherapy Code(s): D46.9 - Myelodysplastic syndrome, unspecified Category: Medical Plan: Follow-up with Hematology (2) Hyperlipidemia: Comment: Can not take statin due to drug interaction with chemotherapy Code(s): E78.5 - Hyperlipidemia, unspecified Category: Medical Plan: Continue low-cholesterol diet (3) HTN (hypertension): Code(s): I10 - Essential (primary) hypertension Category: Medical Plan: Continue valsartan, follow-up in 6 months Medications: Changed From sertraline 50 mg PO DAILY 90 tabs 3RF To sertraline 25 mg PO DAILY
--- OUTSIDE RECORDS SUMMARY | 2024-08-14 12:04 | XMS_ITS ---
Author Organization Gilberto Cunha III, MD Address [address] [place] [address] [place] [address] Care Team Providers Care Inspector Electromechanical Name Role Phone RASHEEDA UMANA MD Primary Care Provider Unavaila Gilberto Carmichael [phone] REASON FOR VISIT Follow up Social History Sex Assigned At : Social History Observation Description Sex Assigned At Female Encounters Encounter Location Date Provider Diagnosis Gilberto Cunha III, MD [address] [place] [address] [place] [address] 04/19/2023 Gilberto Cunha Plan Of Treatment No Information Progress Notes * HOWARD GUTIÉRREZOB: (74 yo F)Acc No.[id number]:04/19/2023 Progress Notes Patient:?HOWARD GUTIÉRREZ Provider:?Gilberto Cunha MD :1950???Age:73 Y???Sex:Female D ate:04/19/2023 Address:[address] [place], [place] [id number] Pcp:RASHEEDA UMANA MD Subjective: * Chief Complaints: [...] Cunha MD Date:?04/01 Generated for Joel crespo/[facility] on:?08/14/2024 12:03 PM EDT
== END 2024-08-14 11:57 | disposition home or self-care (01) ==
PROVIDERS: PCP Internal Medicine; Visit Provider Internal Medicine
DX: D46.9 Myelodysplastic syndrome, unspecified (principal); E78.5 Hyperlipidemia, unspecified; I10 Essential (primary) hypertension

== ENCOUNTER → 2024-08-14 10:33 | Outpatient (BNVA) | payer MEDICARE, SELFPAY | PROVIDERS: PCP Internal Medicine; Visit Provider Internal Medicine | DX: D64.9 Anemia, unspecified (principal); E78.5 Hyperlipidemia, unspecified; I10 Essential (primary) hypertension | CPT/HCPCS: 96127; 99212 ==

== ENCOUNTER 2025-02-18 10:38 | Outpatient (AMB) | payer MEDICARE, SELFPAY ==
[2025-02-18 10:48] VITALS: BP 124/70; PULSE 96; RESP 17; TEMP 36.9; O2SAT 97; BMI 26.7
--- NOTE | 2025-02-18 10:48 | MHC.PC.OV ---
Vital Signs 02/18/25 10:48 Height 5 ft 2 in Weight 146 lb BMI 26.7 BP 124/70 Blood Pressure Location Lt brachial Position Sitting Respiration 17 Pulse 96 Pulse Source Pulse Oximeter Temp 98.5 F Temp Source Oral Pulse Oximetry (%) 97 Oxygen Delivery Method Room Air Intake Visit Reasons: 6 months f/up Intake Note: Pt is here today for 6 months follow visit. Allergies hydrocodone (From Vicodin) Allergy (Unknown, Verified 02/18/25 10:55) vomiting and passing out acetaminophen (From Vicodin) Adverse Reaction (Unknown, Verified 02/18/25 10:55) vomiting and passing out metformin Adverse Reaction (Verified 02/18/25 10:55) burning in feet simvastatin Adverse Reaction (Verified 02/18/25 11:26) leg cramps Tramadol & Dietary Manage Prod Allergy (Unknown, Uncoded 02/18/25 10:55) vomiting and passing out Medication List - Last Reconciled 02/18/25 by Dorinda Melendez MD acyclovir 400 mg PO TID allopurinol 100 mg PO DAILY blood sugar diagnostic (FreeStyle Lite Strips) test blood sugar daily blood-glucose meter (FreeStyle Lite Meter kit) As directed [calcium 100mg ] cholecalciferol (vitamin D3) (Vitamin D3) 150 mcg PO DAILY fluconazole 40 mg PO DAILY folic acid 1 mg PO DAILY lancets (FreeStyle Lancets) Test blood sugar once a day multivitamin 1 tab PO DAILY omeprazole 20 mg PO BID prednisone 40 mg PO DAILY sertraline 25 mg PO DAILY sulfamethoxazole-trimethoprim 400-80 mg 1 tab PO DAILY valsartan 80 mg PO DAILY Tobacco use date assessed: 02/18/25 Fall risk assessment: No Falls in past year Last assessed Fall Risk: 02/18/25 Dental Screening Dental Screen Date: 08/14/24 HPI 6 months f/up HPI Details Patient presents for a follow-up. She was diagnosed with mild yyjzl-qeszqx-mwqy disease and started on 40 mg of prednisone 3 weeks ago. Patient is established with [facility] and has monthly follow-ups. Patient reports feeling increased thirst and urination for the last 2 weeks. Hypertension has been controlled on valsartan. [facility] Medical History (Updated 02/18/25 @ 15:34 by Dorinda Melendez MD) DM type 2 (diabetes mellitus, type 2) MDS (myelodysplastic syndrome) Echevarria syndrome Breast pain, left Impaired glucose tolerance Multinodular goiter DJD (degenerative joint disease) Nephrolithiasis Hyperlipidemia HTN (hypertension) Surgical History H/O: hysterectomy History of esophagogastroduodenoscopy (EGD) History of bilateral oophorectomy History of total hysterectomy Family History Father Cancer Mother Cancer HTN (hypertension) Social History Household Members: Spouse Housing: House Alcohol intake: current Alcohol intake frequency: a few times a month Patient Tobacco Use Status: Former Tobacco user Tobacco use type: Cigarette e-Cigarette/Vaping Use: Never Used service: No Current occupational status: retired Current occupational exposures/hazards: No Cognitive needs: No Hearing needs: No Vision needs: Yes Questionnaire PHQ-9 Over the last 2 weeks, how often have you been bothered by any of the following problems? 1. Little interest or pleasure in doing things: not at all 2. Feeling down, depressed, or hopeless: not at all 3. Trouble falling or staying asleep, or sleeping too much: not at all 4. Feeling tired or having little energy: not at all 5. Poor appetite or overeating: not at all 6. Feeling bad about yourself - or that you are a failure or have let yourself or your family down: not at all 7. Trouble concentrating on things, such as reading the newspaper or watching television: not at all 8. Moving or speaking so slowly that other people could have noticed. Or the opposite - being so fidgety or restless that you have been moving around a lot more than usual: not at all 9. Thoughts that you would be better off or of hurting yourself in some way: not at all Total score: 0 Depression Screening Interpretation: Negative Depression Screening Done: Yes 18332 - PHQ-9 Billing: Yes Source: Developed by Drs. Gilberto Lopez, Bria Frank, Sukh Jon and colleagues, with an educational merlin from [employer]. Thrive Questionnaire Date Thrive assessed: 08/07/24 Are you interested in more education?: No Currently or been in a relationship where the following occur: No concerns reported THRIVE Score: 0 ANAY-7 AMB Questionnaire ANAY-7 Date ANAY - 7 assessed: 08/14/24 Source: Developed by Drs. Gilberto Lopez, Bria Frank, Sukh Jon and colleagues, with an educational merlin from [employer]. Review of Systems Const All systems reviewed & are unremarkable except as noted in HPI and below Eyes Reports no additional complaints ENT Reports no additional complaints Card Reports no additional complaints Resp Reports no additional complaints GI Reports no additional complaints Reports no additional complaints Physical exam (Primary Care) Vital Signs: Last Vital Signs Temp 98.5 F 02/18/25 10:48 Pulse 96 02/18/25 10:48 Resp 17 02/18/25 10:48 BP 124/70 02/18/25 10:48 Pulse Ox 97 02/18/25 10:48 Oxygen Delivery Method Room Air 02/18/25 10:48 BMI result Body Mass Index 26.7 Tobacco/Smoking Status: Tobacco use Status Tobacco use date assessed 02/18/25 02/18/25 10:58 Patient Tobacco Use Status Former Tobacco user 02/18/25 10:50 Tobacco use type Cigarette 02/18/25 10:50 e-Cigarette/Vaping Use Never Used 02/18/25 10:50 PHQ-9: PHQ-9 Score PHQ-9: Total score 0 02/18/25 11:38 Depression Screening Interpretation: Negative Thrive Assessment: Date of Thrive Assessment Date Thrive assessed 08/07/24 02/18/25 10:50 Currently or been in a relationship where the following occur: No concerns reported Const General: no acute distress HENMT Head: Yes normal to inspection Mouth: Normal oral and palatal mucosa present Eyes General: appearance normal, both eyes and all related structures Neck Neck: Yes no lymphadenopathy and Yes supple Resp Effort & Inspection: normal respiratory effort Auscultation: clear to auscultation bilaterally Cardio Rhythm: regular rhythm Heart sounds: S1 normal heart sound present and S2 normal heart sound present GI Inspection: Yes normal to inspection Palpation (GI): Soft to palpation Percussion: Yes normal to percussion Auscultation: normal bowel sounds Results AMB Random Glucose (hemocue) AMB Random Glucose (hemocue) 247 mg/dL Last Edit by CARLA Moreno on 02/18/25 11:31 AMB Hemoglobin A1c AMB Hemoglobin A1c 5.2 % Last Edit by CARLA Moreno on 02/18/25 11:45 Results Reviewed Results Reviewed: Laboratory Last Values Random Glu (Clinic) 247 mg/dL 02/18/25 11:29 Hgb A1c (Clinic) 5.2 % (4.0-6.0) 02/18/25 11:29 Coding Level of Care Code Est Pt Level 4 (21214) Diagnoses HTN (hypertension) I10 DM type 2 (diabetes mellitus, type 2) E11.9 Hyperlipidemia E78.5 MDS (myelodysplastic syndrome) D46.9 Additional Codes PHQ-9 - 90985 - PHQ-9 Billing: Yes ([id number]) Assessment & Plan Assessment & Plan (1) HTN (hypertension): Code(s): I10 - Essential (primary) hypertension Category: Medical Plan: Continue valsartan (2) DM type 2 (diabetes mellitus, type 2): Comment: diet controlled Code(s): E11.9 - Type 2 diabetes mellitus without complications Category: Medical Plan: A1c is 5.2 but random blood glucose today is 247 and patient has symptomatic hyperglycemia. She was advised to start monitoring her blood glucose regularly and Farxiga 5 mg daily will be started. ADA diet increase physical activity discussed with the patient. 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
--- OUTSIDE RECORDS SUMMARY | 2025-02-18 13:09 | XMS_ITS | Encounter Summary ---
Author Organization [facility] Address [address] [place] [address] Phone Care Team Providers Care Ground Worker Name Role Phone Dorinda Melendez MD Primary Care Provider [phone] Self-Referred, Patient Unavailable Unavailab Otis Verma MD Unavailable [phone] Bertha Rice Unavailable Swathi [email or web address] Michelle Raymundo SQUEEGEER AND FORMER Unavailable Nazanin Montano RN Unavailable [phone] Encounter Details Date Type Department Care Team (Late st Contact Info) Description 01/15/2024 Procedure Pass [facility] Radiology [address] [place] [address] Social History Tobacco Use Types Packs/Day Years Used Date Smoking Tobacco: Former Cigarettes 1 5 Smokeless Tobacco: Never Alcohol Use Standard Drinks/Week Comments Yes 0 (1 standard drink = 0.6 oz pur e alcohol) occasional Education Answer Date Recorded Are you interested in more education? Not on myron e 01/12/2023 Are you concerned about learning? Not on file 01/12/2023 No 01/12/2023 No 01/12/2023 Food Answer Date Recorded Within the past 6 months we worried whether our food would run out before we got money to buy more. Never True 12/01/2023 Within the past 6 months the food we bought just didn't last and we didn't have enough money to get more. Never True Residential Stability Answer Date Recor ded What is your housing situation today? I have niki pardo 12/01/2023 How many times have you move d in the past 12 months? Zero (I did not move) 12/01/2023 Paying for Meds Answer Date Recorded Do you have trouble paying for medicines? No 12/01/2023 Paying Utility Bills Answer Date Record ed Do you have trouble paying your heating or elect ricity bill? No 12/01/2023 Transportation Answer Date Recorded Has the lack of transportati on kept you from medical appointments or from getting medications? No 12/01/2023 Digital Access Answer Date Recorded No 12/01/2023 Yes 12/01/2023 Do you have reliable internet access at home? Ye s 12/01/2023 Do you have a device (e.g., phone, tablet, computer) with a working camera? Yes 12/01/2023 Intimate Partner Violence Answer Date R ecorded Are you denied basic needs s uch as food, clothing, or medical care? No 01/15/2024 In the past 12 months have y ou been in a relationship with a person who hurts, threatens, or tries to control you? No 01/15/2024 Are you denied basic needs s uch as food, clothing, or medical care? No 01/15/2024 In the past 12 months have y ou been in a relationship with a person who hurts, threatens, or tries to control you? No 01/15/2024 Comments Unknown Sex and Gender Information Value Date Recorded Sex Assigned at Female 01/10/2023 10:51 PM EST Legal Sex Female 10:02 PM EDT Gender Identity Female 01/10/2023 10:51 PM EST Sexual Orientation Straight 01/10/2023 10 :51 PM EST documented as of this encounter Plan of Treatment Upcoming Encounters Date Type Department Care Team (Late st Contact Info) Description 02/19/2025 3:30 PM EST [facility] [place] [address] [place] [address], 2nd [place] [address] Guerita Hall MD, MPH [address] [place] [address] [email or web address] 02/19/2025 4:30 PM EST Office Visit Division of Hematologic Oncology, [address], [address] [place] [address] Guerita Hall MD, MPH [address] [place] [address] Ti@[email or web address] 03/19/2025 12:10 PM EST Blood Draw Laboratory Services, [address], [address] [place] [address] Guerita Hall MD, MPH [address] [place] [address] Ti@[email or web address] 03/19/2025 1:00 PM EST Office Visit Division of Hematologic Oncology, [address], [address] [place] [address] Guerita Hall MD, MPH [address] [place] [phone] [email or web address] 03/19/2025 1:45 PM EST Infusion Infusion Therapy Services [address] [address], [address], [address] [place] [address] Guerita Hall MD, MPH [address] [place] [address] Ti@[email or web address] 05/21/2025 12:10 PM EDT Blood Draw Laboratory Services, [address], [address] [place] [address] Guerita Hall MD, MPH [address] [place] [address] Ti@[email or web address] 05/21/2025 1:00 PM EDT Office Visit Division of Hematologic Oncology, [address], [address] [place] [address] Srikanth Collazo, PATIENTS TRANSPORTER [address] [place] [phone] [email or web address] 05/21/2025 1:45 PM EDT Infusion Infusion Therapy Services [address], [address] [place] [address] Guerita Hall MD, MPH [address] [place] [address] [email or web address] documented as of this encounter Visit Diagnoses Not on filedocumented in this encounter Additional Health Concerns 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 11/21/2023 11/20/2024 1:21 AM EDT CoV-Risk Comment:Per note documentation 01/15/2024 01/15/2024 6:56 PM EST documented as of this encounter Care Teams Ground Worker Relationship Specialty Start Date End Date Dorinda Melendez MD [facility] [place] [address] PCP - General Internal Medicine 01/10/23 Self-Referred, Patient 01/10/23 Otis Hernandez MD [email or web address] 04/22/23 Bertha [email or web address] Picker Packer 09/22/23 Michelle Raymundo, SQUEEGEER AND FORMER [address] [place] [address] [email or web address] Pharmacognosist Hematology and Oncology 09/26/23 Nazanin Montano, RN [address] [place] [address] [email or web address] Primary Infusion Nurse 12/20/23 documented as of this encounter Additional Source Comments The information contained in this document represents components of the legal health record. It is not the complete legal health record.[facility]
--- OUTSIDE RECORDS SUMMARY | 2025-02-18 13:09 | XMS_ITS | Encounter Summary ---
Author Organization [facility] Address [address] [place] [address] Phone Care Team Providers Care Personal Chef Name Role Phone Dorinda Melendez MD Primary Care Provider [phone] Self-Referred, Patient Unavailable Unavailab Otis Verma MD Unavailable [phone] Bertha Rice Unavailable Swathi [email or web address] Michelle Raymundo RETAIL CLIENT MANAGER Unavailable Nazanin Montano RN Unavailable [phone] Encounter Details Date Type Department Care Team (Late st Contact Info) Description 01/15/[address] [facility] Radiology [address] [place] [address] Social History Tobacco Use Types Packs/Day Years [...] 3:30 PM EST [facility], [facility] [place] [address] [place] [address], 2nd [place] [address] Guerita Hall MD, MPH [address] [place] [address] Ti@[facility] 02/19/2025 4:30 PM EST Office Visit Division of Hematologic Oncology, [address], [address] [place] [address] Guerita Hall MD, MPH [address] [place] [address] Ti@[facility] 03/19/2025 12:10 PM EST Blood Draw Laboratory Services, [address], [address] [place] [address] Guerita Hall MD, MPH [address] [place] [address] Ti@[facility] 03/19/2025 1:00 PM EST Office Visit Division of Hematologic Oncology, [address], [address] [place] [address] Guerita Hall MD, MPH [address] [place] [address] Ti@[facility] 03/19/2025 1:45 PM EST Infusion Infusion Therapy Services [address], [address], [address] [place] [address] Guerita Hall MD, MPH [address] [place] [address] Ti@[facility] 05/21/2025 12:10 PM EDT Blood Draw Laboratory Services, [address], [address] [place] [address] Guerita Hall MD, MPH [address] [place] [phone] Ti@[facility] 05/21/2025 1:00 PM EDT Office Visit Division of Hematologic Oncology, [address], [address] [place] [address] Srikanth Collazo, REPAIRER SCREEN CRUSHER [address] [place] [phone] [email or web address] 05/21/2025 1:45 PM EDT Infusion Infusion Therapy Services [address], [address] [place] [address] Guerita Hall MD, MPH [address] [place] [address] Ti@[facility] documented as of this encounter Visit Diagnoses Not on filedocumented in this encounter Additional Health Concerns 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 11/21/2023 11/20/2024 1:21 AM EDT CoV-Risk Comment:Per note documentation 01/15/2024 01/15/2024 6:56 PM EST documented as of this encounter Care Teams Personal Chef Relationship Specialty Start Date End Date Dorinda Melendez MD [facility] [place] [address] PCP - General Internal Medicine 01/10/23 Self-Referred, Patient 01/10/23 Otis Hernandez MD [email or web address] 04/22/23 Bertha [email or web address] Paid Intern 09/22/23 Michelle Raymundo, RETAIL CLIENT MANAGER [address] [place] [address] Pamela@[email or web address] Timber Mill Worker Hematology and Oncology 09/26/23 Nazanin Montano, RN [address] [place] [address] [email or web address]. [facility] Primary Infusion Nurse 12/20/23 documented as of this encounter Additional Source Comments The information contained in this document represents components of the legal health record. It is not the complete legal health record.[facility]
--- OUTSIDE RECORDS SUMMARY | 2025-02-18 13:09 | XMS_ITS | Encounter Summary ---
Author Organization [facility] Address [address] [place] [address] Phone Care Team Providers Care Broadband Engineer Name Role Phone Dorinda Melendez MD Primary Care Provider [phone] Self-Referred, Patient Unavailable Unavailab Otis Verma MD Unavailable [phone] Bertha Rice Unavailable Swathi [email or web address] Michelle Raymundo WIRE FRAME LAMP SHADE MAKER Unavailable Nazanin Montano RN Unavailable [phone] Encounter Details Date Type Department Care Team (Late st Contact Info) Description 11/22/2023 Procedure [facility] [address] [place] [address] Social History Tobacco Use Types Packs/Day Years Used Date Smoking Tobacco: Former Cigarettes 1 5 Smokeless Tobacco: Never Alcohol Use Standard Drinks/Week Comments Yes 0 (1 standard drink = 0.6 oz pur e alcohol) occasional Education Answer Date Recorded Are you interested in more education? Not on myron e 01/12/2023 Are you concerned about learning? Not on file 01/12/2023 No 01/12/2023 No 01/12/2023 Digital Access Answer Date Recorded No 01/12/2023 No 01/12/2023 Reliable internet access at home? Not on file 01/12/2023 Device with a working camera? Not on file Comments Unknown Sex and Gender Information Value [...] 3:30 PM EST Blood Draw Laboratory Services, [address], [address] [place] [address] Guerita Hall MD, MPH [address] [place] [phone] [email or web address] 02/19/2025 4:30 PM EST Office Visit Division of Hematologic Oncology, [address] [address] Guerita Hall MD, MPH [address] [place] [phone] [email or web address] 03/19/2025 12:10 PM EST Blood Draw Laboratory Services, [address], [address] [place] [address] Guerita Hall MD, MPH [address] [place] [phone] Ti@[email or web address] 03/19/2025 1:00 PM EST Office Visit Division of Hematologic Oncology, [address], [address] [place] [address] Guerita Hall MD, MPH [address] [place] [address] Ti@[email or web address] 03/19/2025 1:45 PM EST Infusion Infusion Therapy Services [address], [address] [place] [address] Guerita Hall MD, MPH [address] [place] [address] Ti@[email or web address] 05/21/2025 12:10 PM EDT Blood Draw Laboratory Services, [address], [address] [place] [address] Guerita Hall MD, MPH [address] [place] [address] Ti@[email or web address] 05/21/2025 1:00 PM EDT Office Visit Division of Hematologic Oncology, [address], [address] [place] [address] Srikanth Collazo, [address] [phone] [email or web address] 05/21/2025 1:45 PM EDT Infusion Infusion Therapy Services [address], [address] [place] [address] Guerita Hall MD, MPH [address] [place] [address] [email or web address] documented as of this encounter Visit Diagnoses Not on filedocumented in this encounter Additional Health Concerns Infection Onset Date Last Indicated Resolved Time CDiff-Risk 11/21/2023 11/21/2023 11/22/2023 10:5 5 AM EDT 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 [place] [address] PCP - General Internal Medicine 01/10/23 Self-Referred, Patient 01/10/23 Otis Hernandez MD [email or web address] 04/22/23 Bertha [email or web address] Train Operations Supervisor 09/22/23 Michelle Raymundo, WIRE FRAME LAMP SHADE MAKER [address] [place] [address] Pamela@[email or web address] Overage Shortage And Damage Clerk Hematology and Oncology 09/26/23 Nazanin Montano, RN [address] [place] [address] [email or web address]. [facility] Primary Infusion Nurse 12/20/23 documented as of this encounter Additional Source Comments The information contained in this document represents components of the legal health record. It is not the complete legal health record.[facility]
--- OUTSIDE RECORDS SUMMARY | 2025-02-18 13:09 | XMS_ITS | Patient Health Record ---
Author Organization Gilberto Cunha III, MD Address [address] [place] [address] [place] [address] Care Team Providers Care Veterinary Pathologist Name Role Phone RASHEEDA UMANA MD Primary Care Provider Unavaila Dr. Gilberto Carmichael III Unavailable [phone] Allergies Allergen (clinical drug ingredient) Drug/Non Drug [...] Problem Status W/U Status Risk Notes Problem 374707512 Overweight (E66.3) Active confirmed She is mildly overweight. We discussed her diet. We recommended weight reduction of a half weeks. Her diet restriction fat calories and sodium. Problem 401008250 Pancytopenia (D61.818) Active confirmed She does not castillo ve hypersplenism even though she has rheumatoid arthritis. She has a progressive pancytopenia with a neutrophil count of 900. Her platelets have fallen 218,000. This will be observed carefully. The B12 and folic acid are normal. Repeat blood work has been ordered. Likely diagnosis is myelodysplastic syndrome. Her bone marrow showed normal trilineage hematopoiesis. Problem 008460373 Mixed hyperlipidemia (E78.2) Active confirmed As of this will be checked periodically. Problem 43011822 Essential hypertension (I10) Active confirmed Her blood pressure is stable today on her current regimen and no changes seem necessary. Problem [id number] MGUS (monoclonal gammopathy of unknown significance) (D47.2) Active confirmed She does not me et criteria for multiple myeloma. She will be observed at frequent intervals. 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 She has never had a bone marrow biopsy. If it is indicated or will be done. Problem 233670415 Multinodular goiter (E04.2) Active confirmed She is under the care of an process control engineer, Dr. Hager. 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 Problem 068027031 Adenomatous polyps (D36.9) Active confirmed Problem 730936524 Type 2 diabetes mellitus without complication, without long-term current use of insulin (E11.9) Active confirmed Her diabetes is being managed by primary care. She appear to be stable today. Plan Of Treatment Pending Test Test Name Order Date PATHOLOGIST REVIEW BLOOD SMEAR 3 PROFILE, RANDOM (COMPREHENSIVE METABOLIC ) 12/17/2022 PROFILE, RANDOM (COMPREHENSIVE METABOLIC ) 10/26/2022 FERRITIN 12/17/2022 CBC w DIFF 11/15/2022 IMMUNOFIXATION PANEL, SERUM (IEP) 2022 PROTEIN ELECTROPHORESIS, SERUM BETA-2 MICROGLOBULIN, SERUM 10/26/2022 FREE KAPPA LAMBDA, SERUM K/L RATIO 12/17 FREE KAPPA LAMBDA, SERUM K/L RATIO 10/26 KAPPA LAMBDA SER 12/17/2022 KAPPA LAMBDA SER 10/26/2022 CBC WITH AUTO DIFF 12/17/2022 Vitamin B12 12/17/2022 Folate 12/17/2022 Beta-2 Microglobulin, Serum 12/17/2022 Insurance Providers Payer Name Payer Address Payer Phone Subscriber Number Group Number Insured Name Patient Relationship to Insured Coverage Start Date Coverage End Date MEDICARE NGS [address] [place] [address] [id number] HOWARD GUTIÉRREZ Self - patient is the insured [facility] [address] [place], [place] [id number] [phone] [id number] HOWARD GUTIÉRREZ Self - patient is the insured Medical (General) History Medical History History ICD Code Monoclonal gammopathy IgG-lambda Every year Colonoscopy Every 2 years Endoscopy Echevarria Syndrome Pancytopenia Macrocytosis Hyperlipidemia Hypertension Diabetes Degenerative joint disease lumbar spine Chronic low back pain Multinodular goiter Overweight Tubular adenomas Surgical History Surgery Date(Month/Year) Tonsillectomy 1955 Labiaectomy 1995 L5,S1 Microdisectomy 1999 Sling procedure 2005 Hysterectomy with 2016 colonoscopy
--- OUTSIDE RECORDS SUMMARY | 2025-02-18 13:09 | XMS_ITS | Encounter Summary ---
Author Organization [facility] Address [email or web address] [place] [address] Phone Care Team Providers Care Chief Of Safety And Protection Name Role Phone Dorinda Melendez MD Primary Care Provider [phone] Self-Referred, Patient Unavailable Unavailab Otis Verma MD Unavailable [phone] Bertha Rice Unavailable Swathi [email or web address] Michelle Raymundo CAFE WORKER Unavailable Nazanin Montano RN Unavailable [phone] Encounter Details Date Type Department Care Team (Late st Contact Info) Description 01/15/2024 Procedure Pass [facility] Radiology [address] [place] [address] Social History Tobacco Use Types Packs/Day Years [...] is your housing situation today? I have niik pardo 12/01/2023 How many times have you [...] 3:30 PM EST [facility], [facility] [address] [place] [address], 2nd [place] [address] Guerita Hall MD, MPH [address] [place] [address] Ti@[facility] 02/19/2025 4:30 PM EST Office Visit Division of Hematologic Oncology, [address], [address] [place] [address] Guerita Hall MD, MPH [address] [place] [address] Ti@[facility] 03/19/2025 12:10 PM EST Blood Draw Laboratory Services, [address], [address] [place] [address] Guerita Hall MD, MPH [address] [place] [phone] Ti@[facility] 03/19/2025 1:00 PM EST Office Visit Division of Hematologic Oncology, [address], [address] [place] [address] Guerita Hall MD, MPH [address] [place] [address] Ti@[facility] 03/19/2025 1:45 PM EST Infusion Infusion Therapy Services [place] [address], [address], [address] [place] [address] Guerita Hall MD, MPH [address] [place] [phone] Ti@[facility] 05/21/2025 12:10 PM EDT Blood Draw Laboratory Services, [address], [address] [place] [address] Guerita Hall MD, MPH [address] [place] [phone] Ti@[facility] 05/21/2025 1:00 PM EDT Office Visit Division of Hematologic Oncology, [address], [address] [place] [address] Srikanth Collazo, GRAVEL ROOFER [address] [place] [phone] [email or web address] 05/21/2025 1:45 PM EDT Infusion Infusion Therapy Services [address], [address] [place] [address] Guerita Hall MD, MPH [address] [place] [address] Ti@[facility] documented as of this encounter Visit Diagnoses Not on filedocumented in this encounter Additional Health Concerns 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 [address] PCP - General Internal Medicine 01/10/23 Self-Referred, Patient 01/10/23 Otis Hernandez MD [email or web address] 04/22/23 Bertha Rice_[email or web address] Pharmacist Assistant 09/22/23 Michelle Raymundo, CAFE WORKER [address] [place] [address] Pamela@[email or web address] Retread Operator Hematology and Oncology 09/26/23 Nazanin Montano, RN [address] [place] [address] BRIANNE@[email or web address]. [facility] Primary Infusion Nurse 12/20/23 documented as of this encounter Additional Source Comments The information contained in this document represents components of the legal health record. It is not the complete legal health record.[facility]
--- OUTSIDE RECORDS SUMMARY | 2025-02-18 13:09 | XMS_ITS | Clinical Summary ---
Author Organization [facility], Address [address] [place] [address] Phone Care Team Providers Care Analyst Food And Beverage Name Role Phone Dorinda Melendez MD Primary Care Provider Allergies Active Allergy Reactions Criticality Noted Date Comments Epinephrine 08/18/2023 Hydrocodone-Acetaminophen Nausea And Vomiting 1 04/18/2022 Other 08/18/2023 Vicodin Tramadol 08/18/2023 Medications [place]-3 Fatty Acids (Fish Oil) 1000 MG capsule delayed-release Take by mouth Active losartan-hydroC HLOROthiazide (HYZAAR) 100-25 MG per tablet Take 1 tablet by mouth 1 (one) time each day Active losartan (COZAAR) 25 MG tablet Take 25 mg by mouth 1 (one) time each day Active Multiple Vitamin (multivitamin) tablet Take 1 tablet by mouth 1 (one) time each day Active ondansetron (ZOFRAN) 4 MG tablet Take 4 mg by mouth every 8 (eight) hours if needed for nausea or vomiting Active prochlorperazin e (COMPAZINE) 5 MG tablet Take 5 mg by mouth every 6 (six) hours if needed for nausea or vomiting Active simvastatin (ZOCOR) 5 MG tablet Take 20 mg by mouth every night Active solifenacin (VESICARE) 5 MG tablet Take 5 mg by mouth 1 (one) time each day Swallow tablet whole; do not crush, chew, or split. Active ezetimibe-simva statin (VYTORIN) 10-80 MG per tablet Take 1 tablet by mouth every night Active Venetoclax 100 MG tablet Take by mouth Active Cholecalciferol 125 MCG (5000 UT) chewable tablet Active acyclovir (ZOVIRAX) 400 MG tablet Take 400 mg by mouth in the morning and 400 mg at noon and 400 mg in the evening. 08/18/2023 Active levoFLOXacin (LEVAQUIN) 500 MG tablet Take 500 mg by mouth in the morning. 07/29/2023 Active MAGNESIUM PO Active valsartan-hydro CHLOROthiazide (DIOVAN-HCT) 320-12.5 MG per tablet Active oxyCODONE (Roxicodone) 5 MG immediate release tablet Take 1 tablet (5 mg total) by mouth every 4 (four) hours if needed for moderate pain for up to 5 doses 5 tablet 08/24/2023 Active Active Problems Problem Noted Date Diagnosed Date Obese class I 08/18/2023 Myelodysplastic syndrome (clinical) 03/15/2023 Monoclonal gammopathy of uncertain significance 02/16/2023 Arthritis 02/15/2023 Hypercholesterolemia 02/15/2023 Hypertensive disorder 02/15/2023 Echevarria syndrome 02/15/2023 Pancytopenia 02/15/2023 Type 2 diabetes mellitus 02/15/2023 Social History Tobacco Use Types Packs/Day Years Used Date Smoking Tobacco: Never Assessed Comments Unknown Sex and Gender Information Value Date Recorded Sex Assigned at Not on file Legal Sex Female 3:45 PM EDT Gender Identity Not on file Sexual Orientation Not on file Last Filed Vital Signs Vital Sign Reading Time Taken Comments Blood Pressure 129/72 10/03/2023 11:24 AM EDT Pulse 77 10/03/2023 11:24 AM EDT Temperature 36.3 C (97.4 F) 10/03/2023 11:24 AM EDT Respiratory Rate - - Oxygen Saturation 96% 10/03/2023 11:24 AM EDT Inhaled Oxygen Concentration - - Weight 74.8 kg (165 lb) 10/03/2023 11:24 AM EDT Height 154.9 cm (5' 1 ) 10/03/2023 11:24 AM EDT Body Mass Index 31.18 10/03/2023 11:24 AM EDT Plan of Treatment Health Maintenance Due Date Last Done Comments Breast Cancer Screening 1950 Pneumococcal Vaccine: 50+ Ye ars (1 of 2 - PCV) 1969 Colorectal Cancer Screening: Annual FOBT 1999 Colorectal Cancer Screening: Colonoscopy 1999 Colorectal Cancer Screening: Sigmoidoscopy 1999 Diabetes: Hemoglobin A1C 08/19/2023 Diabetes: Ophthalmology Exam 08/19/2023 Diabetes: Pedal Pulse Checked 08/19/2023 Diabetes: Sensory Foot Exam 08/19/2023 Diabetes: Visual Foot Exam 08/19/2023 Influenza Vaccine (#1) 2024 Hepatitis B Vaccine Aged Out No longe r eligible based on patient's age to complete this topic Insurance Medicare [facility] Care Teams Analyst Food And Beverage Relationship Specialty Start Date End Date Dorinda Melendez MD [address] [place] [address] PCP - General Internal Medicine 10/03/23
--- OUTSIDE RECORDS SUMMARY | 2025-02-18 13:09 | XMS_ITS | Encounter Summary ---
Author Organization [facility] Address [address] [facility] [address] [place] [address] Phone Care Team Providers Care Plate Keeper Name Role Phone Dorinda Melendze MD Primary Care Provider [phone] Self-Referred, Patient Unavailable Unavailab Otis Verma MD Unavailable [phone] Bertha Rice Unavailable Swathi [email or web address] Michelle RaymundoSW Unavailable Nazanin Montano RN Unavailable [phone] Encounter Details Date Type Department Care Team (Late st Contact Info) Description 05/21/2024 Documentation Division of Hematologic Oncology, [facility] [place] [address] [place] [address], 8th [place] [address] Hillary Escobar, RN [address] [place] [address] [email or web address] Social History Tobacco Use Types Packs/Day Years [...] 3:30 PM EST Blood Draw Laboratory Services, [facility], [address] [place] [address] Guerita Hall MD, MPH [address] [place] [phone] Ti@[email or web address] 02/19/2025 4:30 PM EST Office Visit Division of Hematologic Oncology, [address], [address] [place] [address] Guerita Hall MD, MPH [address] [place] [phone] Ti@[facility] 03/19/2025 12:10 PM EST Blood Draw Laboratory Services, [address] [address] Guerita Hall MD, MPH [address] [place] [address] Ti@[facility] 03/19/2025 1:00 PM EST Office Visit Division of Hematologic Oncology, [address], [address] [place] [address] Guerita Hall MD, MPH [address] [place] [phone] Ti@[facility] 03/19/2025 1:45 PM EST Infusion Infusion Therapy Services [address] [address], [address], [address] [place] [address] Guerita Hall MD, MPH [address] [place] [phone] Ti@[facility] 05/21/2025 12:10 PM EDT Blood Draw Laboratory Services, [address], [address] [place] [address] Guerita Hall MD, MPH [address] [place] [phone] Ti@[facility] 05/21/2025 1:00 PM EDT Office Visit Division of Hematologic Oncology, [address], [address] [place] [address] Srikanth Collazo, [facility] YA [address] [place] [phone] [email or web address] 05/21/2025 1:45 PM EDT Infusion Infusion Therapy Services [address], [address] [place] [address] Guerita Hall MD, MPH [address] [place] [address] Ti@[facility] documented as of this encounter Visit Diagnoses Not on filedocumented in this encounter Additional Health Concerns 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 04/22/23 Bertha Rice_Nishant [email or web address] Auditor Internal 09/22/23 Michelle Raymundo, SCOOPING MACHINE TENDER [address] [place] [address] Pamela@[email or web address] Leader Assembler Hematology and Oncology 09/26/23 Nazanin Montano RN [address] [place] [address] [email or web address]@[email or web address] Primary Infusion Nurse 12/20/23 documented as of this encounter Additional Source Comments The information contained in this document represents components of the legal health record. It is not the complete legal health record.[facility]
--- OUTSIDE RECORDS SUMMARY | 2025-02-18 13:09 | XMS_ITS | Encounter Summary ---
Author Organization [facility] Address [address] [place] [address] Phone Care Team Providers Care Admission Liaison Name Role Phone Droinda Melendez MD Primary Care Provider [phone] Self-Referred, Patient Unavailable Unavailab Otis Verma MD Unavailable [phone] Bertha Rice Unavailable Swathi [email or web address] Michelle Raymundo TESTS SUPERINTENDENT Unavailable Nazanin Montano RN Unavailable [phone] Encounter Details Date Type Department Care Team (Late st Contact Info) Description 11/30/2023 Procedure Pass [facility] Radiology [address] [place] [address] Social History Tobacco Use Types Packs/Day Years [...] computer) with a working camera? Yes 12/01/2023 Comments Unknown Sex and Gender Information Value [...] 3:30 PM EST Blood Draw Laboratory Services, [address], [address] [place] [address] Guerita Hall MD, MPH [address] [place] [address] [email or web address]@[email or web address] 02/19/2025 4:30 PM EST Office Visit Division of Hematologic Oncology, [address], [address] [place] [address] Guerita Hall MD, MPH [address] [place] [address] Ti@[email or web address] 03/19/2025 12:10 PM EST Blood Draw Laboratory Services, [address], [address] [place] [address] Guerita Hall MD, MPH [address] [place] [address] Ti@[facility] 03/19/2025 1:00 PM EST Office Visit Division of Hematologic Oncology, [address], [address] [place] [address] Guerita Hall MD, MPH [address] [place] [address] Ti@[email or web address] 03/19/2025 1:45 PM EST Infusion Infusion Therapy Services [place] [address], [address], [address] [place] [address] Guerita Hall MD, MPH [address] [place] [address] Ti@[email or web address] 05/21/2025 12:10 PM EDT Blood Draw Laboratory Services, [address], [address] [place] [address] Guerita Hall MD, MPH [address] [place] [address] Ti@[facility] 05/21/2025 1:00 PM EDT Office Visit Division of Hematologic Oncology, [address], [address] [place] [address] Srikanth Collazo, [facility] [address] [phone] [email or web address] 05/21/2025 1:45 PM EDT Infusion Infusion Therapy Services [place] [address], [facility] Cancer [address], [address]th [place] [address] Guerita Hall MD, MPH [address] [place] [address] Ti@[email or web address] documented as of this encounter Visit Diagnoses Not on filedocumented in this encounter Additional Health Concerns 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 11/21/2023 11/20/2024 1:21 AM EDT CDiff-Risk 11/30/2023 11/30/2023 11/30/2023 10:3 8 AM EDT CDiff-Risk 12/01/2023 12/02/2023 12/02/2023 6:49 AM EDT CoV-Risk Comment:Per note documentation 01/15/2024 01/15/2024 6:56 PM EST documented as of this encounter Care Teams Admission Liaison Relationship Specialty Start Date End Date Dorinda Melendez MD [address] [place] [address] PCP - General Internal Medicine 01/10/23 Self-Referred, Patient 01/10/23 Otis Hernandez MD [email or web address] 04/22/23 [email or web address] [email or web address] Apprentice Carpenter 09/22/23 Michelle Raymundo, TESTS SUPERINTENDENT [address] [place] [address] Pamela@[facility] Wheat Grower Hematology and Oncology 09/26/23 Nazanin Montano, RN [address] [place] [address] BRIANNE@[email or web address]. [facility] Primary Infusion Nurse 12/20/23 documented as of this encounter Additional Source Comments The information contained in this document represents components of the legal health record. It is not the complete legal health record.[facility]
--- OUTSIDE RECORDS SUMMARY | 2025-02-18 13:10 | XMS_ITS | Encounter Summary ---
Author Organization [facility] Address [address] [place] [address] Phone Care Team Providers Care Senior Compliance Analyst Name Role Phone Dorinda Melendez MD Primary Care Provider [phone] Self-Referred, Patient Unavailable Unavailab Otis Verma MD Unavailable [phone] Bertha Rice Unavailable Swathi [email or web address] Michelle Raymundo MEDICAL PHOTOGRAPHER Unavailable Nazanin Montano RN Unavailable [phone] Encounter Details Date Type Department Care Team (Late st Contact Info) Description 12/06/2023 Procedure Pass [facility] L2 PRU [address] [place] [address] Social History Tobacco Use Types Packs/Day Years [...] 3:30 PM EST Blood Draw Laboratory Services, [address], [address] [place] [address] Guerita Hall MD, MPH [address] [place] [phone] Ti@[facility] 02/19/2025 4:30 PM EST Office Visit Division of Hematologic Oncology, [address], [address] [place] [address] Guerita Hall MD, MPH [address] [place] [address] Ti@[facility] 03/19/2025 12:10 PM EST Blood Draw Laboratory Services, [address], [address] [place] [address] Guerita Hall MD, MPH [address] [place] [address] Ti@[facility] 03/19/2025 1:00 PM EST Office Visit Division of Hematologic Oncology, [address], [address] [place] [address] Guerita Hall MD, MPH [address] [place] [address] Ti@[facility] 03/19/2025 1:45 PM EST Infusion Infusion Therapy Services [place] [address], [address], [address] [place] [address] Guerita Hall MD, MPH [address] [place] [address] Ti@[facility] 05/21/2025 12:10 PM EDT Blood Draw Laboratory Services, [address], [address] [place] [address] Guerita Hall MD, MPH [address] [place] [phone] Ti@[facility] 05/21/2025 1:00 PM EDT Office Visit Division of Hematologic Oncology, [address], [address] [place] [address] Srikanth Collazo, [facility] [address] [phone] [email or web address] 05/21/2025 1:45 PM EDT Infusion Infusion Therapy Services [address] Cancer [address], 8th [place] [address] Guerita Hall MD, MPH [address] [place] [address] Ti@[facility] documented as of this encounter Visit Diagnoses Not on filedocumented in this encounter Additional Health Concerns 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 04/22/23 Bertha [email or web address] [email or web address] THE [facility] Health Records Technology Teacher 09/22/23 Michelle Raymundo, MEDICAL PHOTOGRAPHER [address] [place] [address] Pamela@[facility] Collateral Specialist Hematology and Oncology 09/26/23 Nazanin Montano, RN [address] [place] [address] [email or web address]@[email or web address] Primary Infusion Nurse 12/20/23 documented as of this encounter Additional Source Comments The information contained in this document represents components of the legal health record. It is not the complete legal health record.[facility]
--- OUTSIDE RECORDS SUMMARY | 2025-02-18 13:10 | XMS_ITS | Encounter Summary ---
Author Organization [facility] Address [address] [place] [address] Phone Care Team Providers Care Home Economics Extension Worker Name Role Phone Dorinda Melendez MD Primary Care Provider [phone] Self-Referred, Patient Unavailable Unavailab Otis Verma MD Unavailable [phone] Bertha Rice Unavailable Swathi [email or web address] Michelle Raymundo VEGETABLE CUTTER Unavailable Nazanin Montano RN Unavailable [phone] Encounter Details Date Type Department Care Team (Late st Contact Info) Description 09/26/2023 Procedure Pass [facility]'s Echocardiography [address] [place] [address] Social History Tobacco Use Types Packs/Day Years [...] 3:30 PM EST Blood Draw Laboratory Services, [address], [address] [place] [address] Guerita Hall MD, MPH [address] [place] [phone] [email or web address] 02/19/2025 4:30 PM EST Office Visit Division of Hematologic Oncology, [address] [address] Guerita Hall MD, MPH [address] [place] [phone] [email or web address]@[email or web address] 03/19/2025 12:10 PM EST Blood Draw Laboratory Services, [address], [address] [place] [address] Guerita Hall MD, MPH [address] [place] [address] [email or web address]@[email or web address] 03/19/2025 1:00 PM EST Office Visit Division of Hematologic Oncology, [address], [address] [place] [address] Guerita Hall MD, MPH [address] [place] [address] [email or web address]@[email or web address] 03/19/2025 1:45 PM EST Infusion Infusion Therapy Services [address], [address] [place] [address] Guerita Hall MD, MPH [address] [place] [address] [email or web address]@[email or web address] 05/21/2025 12:10 PM EDT Blood Draw Laboratory Services, [address], [address] [place] [address] Guerita Hall MD, MPH [address] [place] [phone] [email or web address]@[facility] 05/21/2025 1:00 PM EDT Office Visit Division of Hematologic Oncology, [address], [address] [place] [address] Srikanth Collazo, PACKAGING MACHINE OPERATOR [address] [place] [phone] [email or web address] 05/21/2025 1:45 PM EDT Infusion Infusion Therapy Services [address], [address] [place] [address] Guerita Hall MD, MPH [address] [place] [address] [email or web address]@[email or web address] documented as of this encounter Visit Diagnoses Not on filedocumented in this encounter Additional Health Concerns Infection Onset Date Last Indicated Resolved Time CoV-Risk Comment:Per note documentation 11/12/2023 11/12/2023 11:18 PM EDT CDiff-Risk 11/14/2023 11/14/2023 11/16/2023 10:3 2 AM EDT CDiff-Risk 11/21/2023 11/21/2023 11/22/2023 10:5 5 AM EDT 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 11/21/2023 11/20/2024 1:21 AM EDT CDiff-Risk 11/30/2023 11/30/2023 11/30/2023 10:3 8 AM EDT CDiff-Risk 12/01/2023 12/02/2023 12/02/2023 6:49 AM EDT CoV-Risk Comment:Per note documentation 01/15/2024 01/15/2024 6:56 PM EST documented as of this encounter Care Teams Home Economics Extension Worker Relationship Specialty Start Date End Date Dorinda Melendez MD [address] [place] [address] PCP - General Internal Medicine 01/10/23 Self-Referred, Patient 01/10/23 Otis Hernandez MD [email or web address] 04/22/23 [email or web address] Central Sterile Technician 09/22/23 Michelle Raymundo, VEGETABLE CUTTER [address] [place] [address] Pamela@[email or web address] Head Men'S Golf Coach Hematology and Oncology 09/26/23 Nazanin Montano, RN [address] [place] [address] [email or web address]. [facility] Primary Infusion Nurse 12/20/23 documented as of this encounter Additional Source Comments The information contained in this document represents components of the legal health record. It is not the complete legal health record.[facility]
--- OUTSIDE RECORDS SUMMARY | 2025-02-18 13:10 | XMS_ITS | Encounter Summary ---
Author Organization [facility] Address [address] [place] [address] Phone Care Team Providers Care Installation Supervisor Name Role Phone Dorinda Melendez MD Primary Care Provider Self-Referred, Patient Unavailable Unavailab Otis Verma MD Unavailable [phone] Bertha Rice Unavailable Swathi [email or web address] Michelle Raymundo VARNISH MELTER Unavailable Nazanin Montano RN Unavailable [phone] Encounter Details Date Type Department Care Team (Latest Contact Info) Description 01/18/2025 Lab Requisition [facility]' Histocmpatibility Lab [address] [place] [address] Guerita Hall MD, MPH [address] [place] [phone] [email or web address] Myelodysplastic syndrome, unspecified Social History Tobacco Use Types Packs/Day Years [...] your housing situation today? I have niki sing 12/01/2023 How many times have you move [...] 3:30 PM EST Blood Draw Laboratory Services, [address], [address] [place] [address] Guerita Hall MD, MPH [address] [place] [phone] [email or web address]@[email or web address] 02/19/2025 4:30 PM EST Office Visit Division of Hematologic Oncology, [address], [address] [place] [address] Guerita Hall MD, MPH [address] [place] [address] Ti@[facility] 03/19/2025 12:10 PM EST Blood Draw Laboratory Services, [address], [address] [place] [address] Guerita Hall MD, MPH [address] [place] [phone] Ti@[facility] 03/19/2025 1:00 PM EST Office Visit Division of Hematologic Oncology, [address], [address] [place] [address] Guerita Hall MD, MPH [address] [place] [phone] Ti@[facility] 03/19/2025 1:45 PM EST Infusion Infusion Therapy Services [place] [address], [address], [address] [place] [address] Guerita Hall MD, MPH [address] [place] [address] Ti@[facility] 05/21/2025 12:10 PM EDT Blood Draw Laboratory Services, [address], [address] [place] [address] Guerita Hall MD, MPH [address] [place] [address] Ti@[facility] 05/21/2025 1:00 PM EDT Office Visit Division of Hematologic Oncology, [address], [address] [place] [address] Srikanth Collazo, [employer] [address] [place] [facility] YAW [address] [place] [phone] [email or web address] 05/21/2025 1:45 PM EDT Infusion Infusion Therapy Services [address], [address] [place] [address] Guerita Hall MD, MPH [address] [place] [address] [email or web address]@[facility] documented as of this encounter Procedures Procedure Name Priority Date/Time Associated Diagnosis Comments CHIMERISM RESULTS - [facility] Routine 01/17/2025 12:49 PM EST Myelodysplastic syndrome, unspecified documented in this encounter Results * Chimerism Results ([facility]) (01/17/2025 12:49 PM EST) HLA Report URL See HLA Results Hyperlink 01/28/2025 12:11 PM EST [facility] Blood (Blood) 01/17/2025 12: 49 PM EST 01/18/2025 9:55 AM EST us Guerita Hall MD, MPH LAB HLA ORDERABLES Final R esult [facility] [address] [place] [address] documented in this encounter Visit Diagnoses Diagnosis Myelodysplastic syndrome, unspecified documented in this encounter Care Teams Installation Supervisor Relationship Specialty Start Date End Date Dorinda Melendez MD [address] [place] [address] PCP - General Internal Medicine 01/10/23 Self-Referred, Patient 01/10/23 Otis Hernandez MD [email or web address] 04/22/23 [email or web address] Geosciences Faculty Member 09/22/23 Michelle Raymundo, VARNISH MELTER [address] [place] [address] Pamela@[email or web address] Gusset Stitcher Hematology and Oncology 09/26/23 Nazanin Montano, RN [address] [place] [address] [email or web address]. [facility] Primary Infusion Nurse 12/20/23 documented as of this encounter Additional Source Comments The information contained in this document represents components of the legal health record. It is not the complete legal health record.[facility]
--- OUTSIDE RECORDS SUMMARY | 2025-02-18 13:10 | XMS_ITS | Encounter Summary ---
Author Organization [facility] Address [address] [place] [address] Phone Care Team Providers Care Auger Mill Operator Name Role Phone Dorinda Melendez MD Primary Care Provider [phone] Self-Referred, Patient Unavailable Unavailab Otis Verma MD Unavailable [phone] Bertha Rice Unavailable Swathi [email or web address] Michelle Raymundo INDUSTRIAL ARTS TEACHER Unavailable Nazanin Montano RN Unavailable [phone] Encounter Details Date Type Department Care Team (Late st Contact Info) Description 09/15/2023 Procedure Pass [facility] Angio Interventional Radiology [address] [place] [address] Social History Tobacco Use Types Packs/Day Years [...] 3:30 PM EST Blood Draw Laboratory Services, [address], [address] [place] [address] Guerita Hall MD, MPH [address] [place] [phone] [email or web address]@[facility] 02/19/2025 4:30 PM EST Office Visit Division of Hematologic Oncology, [address] [address] Guerita Hall MD, MPH [address] [place] [phone] Ti@[facility] 03/19/2025 12:10 PM EST Blood Draw Laboratory Services, [address], [address] [place] [address] Guerita Hall MD, MPH [address] [place] [phone] Ti@[facility] 03/19/2025 1:00 PM EST Office Visit Division of Hematologic Oncology, [address], [address] [place] [address] Guerita Hall MD, MPH [address] [place] [address] Ti@[facility] 03/19/2025 1:45 PM EST Infusion Infusion Therapy Services [address], [address] [place] [address] Guerita Hall MD, MPH [address] [place] [phone] Ti@[facility] 05/21/2025 12:10 PM EDT Blood Draw Laboratory Services, [address], [address] [place] [address] Guerita Hall MD, MPH [address] [place] [address] Ti@[facility] 05/21/2025 1:00 PM EDT Office Visit Division of Hematologic Oncology, [address], [address] [place] [address] Srikanth Collazo, [employer] [address] [place] [phone] [email or web address] 05/21/2025 1:45 PM EDT Infusion Infusion Therapy Services [address], [address] [place] [address] Guerita Hall MD, MPH [address] [place] [phone] [email or web address]@[facility] documented as [...] documented as of this encounter Care Teams Auger Mill Operator Relationship Specialty Start Date End Date Dorinda Melendez MD [address] [place] [address] PCP - General Internal Medicine 01/10/23 Self-Referred, Patient 01/10/23 Otis Hernandez MD [email or web address] 04/22/23 [email or web address] Medical Geneticist 09/22/23 Michelle Raymundo, INDUSTRIAL ARTS TEACHER [address] [place] [address] Pamela@[email or web address] Shrink Pit Operator Hematology and Oncology 09/26/23 Nazanin Montano, RN [address] [place] [address] [email or web address]. [facility] Primary Infusion Nurse 12/20/23 documented as of this encounter Additional Source Comments The information contained in this document represents components of the legal health record. It is not the complete legal health record.[facility]
--- OUTSIDE RECORDS SUMMARY | 2025-02-18 13:10 | XMS_ITS | Encounter Summary ---
Author Organization [facility] Address [address] [place] [address] Phone Care Team Providers Care Skiver Sock Linings Name Role Phone Dorinda Melendez MD Primary Care Provider [phone] Self-Referred, Patient Unavailable Unavailab Otis Verma MD Unavailable [phone] Bertha Rice Unavailable Swathi [email or web address] Michelle Raymundo FRENCH PASTRY COOK Unavailable Nazanin Montano RN Unavailable [phone] Encounter Details Date Type Department Care Team (Late st Contact Info) Description 04/11/2023 Documentation Central Registration, [facility] [place] [address] [facility], 2nd [place] [address] Claudine Champion [address] [place] [address] [email or web address] Social History Tobacco Use Types Packs/Day Years [...] 3:30 PM EST Blood Draw Laboratory Services, [address], [address] [place] [address] Guerita Hall MD, MPH [address] [place] [phone] Ti@[facility] 02/19/2025 4:30 PM EST Office Visit Division of Hematologic Oncology, [address], [address] [place] [address] Guerita Hall MD, MPH [address] [place] [phone] Ti@[facility] 03/19/2025 12:10 PM EST Blood Draw Laboratory Services, [address], [address] [place] [address] Guerita Hall MD, MPH [address] [place] [phone] Ti@[facility] 03/19/2025 1:00 PM EST Office Visit Division of Hematologic Oncology, [address], [address] [place] [address] Guerita Hall MD, MPH [address] [place] [phone] Ti@[facility] 03/19/2025 1:45 PM EST [facility], [address], [address] [place] [address] Guerita Hall MD, MPH [address] [place] [phone] Ti@[facility] 05/21/2025 12:10 PM EDT Blood Draw Laboratory Services, [address], [address] [place] [address] Guerita Hall MD, MPH [address] [place] [phone] Ti@[facility] 05/21/2025 1:00 PM EDT Office Visit Division of Hematologic Oncology, [address], [address] [place] [address] Srikanth Collazo, [address] [phone] [email or web address] 05/21/2025 1:45 PM EDT Infusion Infusion Therapy Services [address], [address] [place] [address] Guerita Hall MD, MPH [address] [place] [phone] Ti@[facility] documented as of this encounter Visit Diagnoses Not on filedocumented in this encounter Additional Health Concerns Infection Onset Date Last Indicated Resolved Time CoV-Risk Comment:Per note documentation 11/12/2023 11/12/2023202 4 11:18 PM EDT CDiff-Risk 11/14/2023 11/14/2023 11/16/2023 10:3 2 AM EDT CDiff-Risk 11/21/2023 11/21/2023 11/22/2023 10:5 5 AM EDT 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 11/21/2023 11/20/2024 1:21 AM EDT CDiff-Risk 11/30/2023 11/30/2023 11/30/2023 10:3 8 AM EDT CDiff-Risk 12/01/2023 12/02/2023 12/02/2023 6:49 AM EDT CoV-Risk Comment:Per note documentation 01/15/2024 01/15/2024 6:56 PM EST documented as of this encounter Care Teams Skiver Sock Linings Relationship Specialty Start Date End Date Dorinda Melendez MD [facility] [place] [address] PCP - General Internal Medicine 01/10/23 Self-Referred, Patient 01/10/23 Otis Hernandez MD [email or web address] 04/22/23 Bertha [email or web address] Phosphoric Acid Operator 09/22/23 Michelle Raymundo, FRENCH PASTRY COOK [address] [place] [address] Pamela@[email or web address] Supervisor Shipfitters Hematology and Oncology 09/26/23 Nazanin Montano, RN [address] [place] [address] [email or web address]@[email or web address]. [facility] Primary Infusion Nurse 12/20/23 documented as of this encounter Additional Source Comments The information contained in this document represents components of the legal health record. It is not the complete legal health record.[facility]
--- OUTSIDE RECORDS SUMMARY | 2025-02-18 13:10 | XMS_ITS | Clinical Summary ---
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 And Polishing Supervisor Name Role Phone Dorinda Melendez MD Primary Care Provider [phone] Self-Referred, Patient Unavailable Unavailab Otis Verma MD Unavailable [phone] Bertha Rice Unavailable Swathi [email or web address] Michelle Raymundo LITERACY SPECIALIST Unavailable Nazanin Montano RN Unavailable [phone] Allergies Active Allergy Reactions Criticality Noted Date Comments Epinephrine Palpitations Low 02/15/2023 Hydrocodone-Acetaminophen Nausea and/or Vomiting 02/15/2023 Tramadol Other (See Comments) 02/15/2023 Medications sertraline (ZOLOFT) 50 MG tablet Take 25 mg by mouth daily. Active sulfamethoxazo le-trimethopri m (BACTRIM,SEPTR A) 400-80 mg per tablet Take 1 tablet (80 mg of trimethoprim total) by mouth daily. 90 tablet 3 03/26/19 25 Active valsartan (DIOVAN) 80 MG tablet TAKE 1 TABLET(80 MG) BY MOUTH DAILY 90 tablet 3 05/23/19 25 Active multivitamin per tablet Take 1 tablet by mouth daily. 90 tablet 3 09/18/19 25 Active acyclovir (ZOVIRAX) 400 MG tablet Take 1 tablet (400 mg total) by mouth 2 (two) times a day. 90 tablet 11 11/28/19 25 Active omeprazole (PRILOSEC) 20 MG capsule Take 1 capsule (20 mg total) by mouth daily as needed (Acid reflux). 60 capsule 2 12/21/19 25 Active cholecalcifero l (D3-5000) 5,000 unit capsule Take 1 capsule (5,000 Units total) by mouth every 3 (three) days. 01/18/20 25 Active calcium carbonate 500 mg (200 mg elemental) chewable tablet Take 2 tablets (1,000 mg total) by mouth daily. 01/18/20 25 Active ursodioL (ACTIGALL) 300 mg capsule Take 1 capsule (300 mg total) by mouth 3 (three) times a day. 90 capsule 3 01/18/20 25 Active predniSONE (DELTASONE) 10 MG tablet Take 4 tablets (40 mg total) by mouth daily with breakfast. 120 tablet 2 01/30/20 25 Active fluconazole (DIFLUCAN) 200 MG tablet Take 2 tablets (400 mg total) by mouth daily. 60 tablet 11 01/30/20 25 Active simvastatin (ZOCOR) 20 MG tablet Take 1 tablet (20 mg total) by mouth nightly at bedtime. Holding 01/18/20 25 025 Discontinued Active Problems Patient Care Coordination No te Formatting of this note migh t be different from the original. Pt would like stem cells blessed Problem Noted Date Diagnosed Date Vitamin D deficiency, unspecified 11/27/2024 Chronic neck and back pain 01/15/2024 MDS (myelodysplastic syndrome) 01/06/2024 History of allogeneic stem cell transplant 11/10 Myelodysplastic syndrome with excess blasts-1 Assessment & Plan (01/16/2024 3:02 PM EST): MGUS diagnosed 2012, under observation when found worsening cytopenias and diagnosed with MDS-EB1 Sep 2022. Received Decitabine x2 cycles, Rosie added for persistent disease with improvement in blasts but MRD+ with residual mutations. Underwent outpatient [facility] 12/07 [facility] PBSCT (11/11/23) on Protocol 18-283 with addition of Venetoclax. Toxo negative. No ABO mismatch. 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 Day 0 = 11/11/23. PI: Maryann Eng MD; Primary Oncologist: Dr. Guerita Rodrigse RRN: Tri Escobar -- Continue acyclovir, bactrim ppx -- Weekly CMV, EBV, G/G monitoring -- Continue Letermovir 480mg daily through D+100 -- Pre-transplant vitamin D level was 37; maintain on Cholecalciferol 2,000 unit daily. -- per patient, ursodiol TID recently discontinued GVHD Prophylaxis: (1) Tacrolimus 1mg QAM/.05mg QPM. Last level 01/08=7 (2) Cyclophosphamide IV mg/kg on Days 3, 4 (completed) (3) Cellcept 1,000mg q8hrs starting day +5 through day +28 (completed) Assessment & Plan (01/15/2024 6:26 PM EST): MGUS diagnosed 2012, under observation when found worsening cytopenias and diagnosed with MDS-EB1 Sep 2022. Received Decitabine x2 cycles, Rosie added for persistent disease with improvement in blasts but MRD+ with residual mutations. Underwent outpatient [facility] 12/07 [facility] PBSCT (11/11/23) on Protocol 18-283 with addition of Venetoclax. Toxo negative. No ABO mismatch. 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 Day 0 = 11/11/23. PI: Maryann Eng MD; Primary Oncologist: Dr. Guerita Rodriges RRN: Tri Escobar -- Continue acyclovir, bactrim ppx -- Weekly CMV, EBV, G/G monitoring -- Continue Letermovir 480mg daily through D+100 -- Pre-transplant vitamin D level was 37; maintain on Cholecalciferol 2,000 unit daily. -- Continue ursodiol TID GVHD Prophylaxis consists of: (1) Tacrolimus 1mg QAM/.05mg QPM. Last level 01/08=7 (2) Cyclophosphamide IV mg/kg on Days 3, 4 (completed) (3) Cellcept 1,000mg q8hrs starting day +5 through day +28 Assessment & Plan (12/05/2023 10:53 AM EDT): MGUS diagnosed 2012, under observation when found worsening cytopenias and diagnosed with MDS-EB1 Sep 2022. Received Decitabine x2 cycles, Rosie added for persistent disease with improvement in blasts but MRD+ with residual mutations. Underwent outpatient [facility]/07 [facility] PBSCT (11/11/23) on Protocol 18-283 with addition of Venetoclax. Toxo negative. No ABO mismatch. 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 Day 0 = 11/11/23. PI: Maryann Eng MD; Primary Oncologist: Dr. Guerita Rodriges RRN: Tri Escobar -- Continue acyclovir, bactrim ppx (switched from mepron ppx this admit with plt reconstitution) -- Weekly CMV, EBV, G/G monitoring -- Continue Letermovir 480mg daily through D+100 -- Pre-transplant vitamin D level was 37; maintain on Cholecalciferol 2,000 unit daily. -- Continue ursodiol TID GVHD Prophylaxis consists of: (1) Tacrolimus 1/.05 since 12/04 (prev 0.5mg BID since 105pm). Level 12/04 = 4.7, (12/03 = 6.9). (2) Cyclophosphamide IV mg/kg on Days 3, 4 (completed) (3) Cellcept 1,000mg q8hrs starting day +5 through day +28. Assessment & Plan (11/27/2023 1:38 PM EDT): History of MGUS, diagnosed in 2012 managed with observation. Found to have worsening pancytopenia in September 2022 with BMBx c/w MDS. Treated with Decitabine x3 cycles with Venetoclax added in C3. RHP showed with ASXL-1, CBL, TET 2 (x2) and U2AF1 mutations. Initially underwent outpatient [facility]/07 [facility] alloSCT on Protocol 18-283, a phase 1 study with Venetoclax daily followed and a reduced intensity alloSCT. Toxo negative. No ABO mismatch, both O+. CMV R+/D+, high risk of reactivation and plan for Letermovir. Patient received PO Venetoclax daily on days -8 to -2. Conditioning regimen consisted of Fludarabine 30mg/m2 IVB daily and Busulfan 0.8mg/kg IVB BID on days -5 to -2. On Day 0 (11/11/23) 11.25 x 10*6 CD34/kg cells infused without issues. Now admitted from outpatient [facility] clinic for #F&N. Monitored weekly CMV, EBV, G/G monitoring starting day +7. Will continue Letermovir 480mg daily through D+100 Pre-transplant vitamin D level was 37. Plan to maintain on Cholecalciferol 2,000 unit daily. Will continue Actigall on discharge. PI: Maryann Eng MD; Primary Oncologist: Dr. Guerita BAILONN: Tri Escobar GVHD Prophylaxis consists of: (1) Tacrolimus 1.5 mg in the morning and 1 mg in the evening since 11/26, previously on 1.5 mg BID since 11/25. Decreased for uptrending level. Levels checked daily and adjusted PRN. Level 11/26=10 (11/25= 9.4) (2) Cyclophosphamide IV mg/kg on Days 3, 4 (completed) (3) Cellcept 1,000mg q8hrs starting day +5 through day +28 Assessment & Plan (11/14/2023 12:50 PM EDT): History of MGUS, diagnosed in 2012 managed with observation. Found to have worsening pancytopenia in September 2022 with BMBx c/w MDS. Treated with Decitabine x3 cycles with Venetoclax added in C3. RHP showed with ASXL-1, CBL, TET 2 (x2) and U2AF1 mutations. Initially underwent outpatient [facility] on Protocol 18-283, a phase 1 study with Venetoclax daily followed and a reduced intensity alloSCT. Toxo negative. No ABO mismatch, both O+. CMV R+/D+, high risk of reactivation and plan for Letermovir. Patient to received PO Venetoclax daily on days -8 to -2. Conditioning regimen consisted of Fludarabine 30mg/m2 IVB daily and Busulfan 0.8mg/kg IVB BID on days -5 to -2. On Day 0 (11/11/23) 11.25 x 10*6 CD34/kg cells infused without issues. Now admitted from outpatient [facility] clinic for #F&N. PI: Maryann Eng MD; Primary Oncologist: Dr. Guerita BAILONN: Tri Escobar -- Weekly CMV, EBV, G/G monitoring starting day +7 -- Plan for Letermovir 480mg daily starting D+7 and to continue through D+100 -- Continue CBC w/diff, LFT, BMP, Uric acid, LDH, phos daily after completion of ramp up per protocol through discharge. -- Pre-transplant vitamin D level was 37. Plan to maintain on Cholecalciferol 2,000 unit daily. GVHD Prophylaxis consists of: (1) Tacrolimus 3.5mg BID to start on D+5. Levels checked daily starting D+7 and dose adjusted to maintain therapeutic levels (2) Cyclophosphamide IV mg/kg on Days 3, 4 (Will also receive mesna 10mg/kg 30 min prior and 3, 6, 9 hours after completion of cyclophsphamide; Will receive lasix IV q6 hours PRN to keep UOP >200ml/hr on days 3-5) (3) Cellcept 1,000mg q8hrs starting day +5 through day +28 MGUS (monoclonal gammopathy of unknown significa nce) 02/16/2023 Polyarticular arthritis 02/15/2023 Assessment & Plan (01/16/2024 3:02 PM EST): As per last discharge summary, History of polyarticular arthritis (R ankle, R knee, R wrist, neck). 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 On 10/1am, woke up with acute atraumatic R wrist pain radiating into hand limiting movement. Seen in clinic with edematous, warm, tender wrist and hand. Afebrile, labs with elevated ESR/CRP, not neutropenic and no leukocytosis or left shift. Sent to ED to rule out septic arthritis, BCx obtained (NG) and started Vanc. Xray without fracture, showed chondrocalcinosis c/w CPPD. Seen by Plastics; joint aspiration with negative gram stain, showed both uric acid and calcium pyrophosphate crystals, as well as 144k nucleated cells, 94% neutrophils. By 11/29, also had R ankle pain; R ankle Xray without fracture. As part of work-up, obtained additional L wrist xray (moderate to severe degenerative changes) and CT neck (advanced degenerative changes from C3 down to C7 most evident at C4-5 with extreme neural foraminal narrowing on the right). Overall, synovial fluid studies showed evidence of CPPD (pseudogout) and gout. However, given synovial fluid findings of high nucleated cell count & neutrophils, initially also had concern for concurrent septic arthritis, thus ID consulted and covered with Vanc x48h until joint cx NG. Also seen by Ortho who saw no role for joint wash out given synovial fluid culture without growth. R wrist pain/ROM/edema significantly improved but continued with whole body aches, migratory joint pains, and cyclical fevers off antibiotics with negative infectious work- up. Constellation of sxs all consistent with polyarticular arthritis/gout/pseudogout, thus ultimately started Prednisone 40mg daily on 12/03. No further fevers and rapid clinical improvement. Discharged on Pred 40mg daily with plan to taper outpatient in collaboration with Rheum. Referral placed for outpatient Rheum follow up. Inpatient Rheumatology followed, recommended PRN motrin but given resolution of symptoms on steroids, and higher side effect risks given concurrent prednisone, deferred. Continue PRN voltaren gel, though patient not requiring on discharge given resolution of pain and swelling. Most recently seen by [facility] rheumatology 12/25, completed prednisone taper 01/11/24, last on prednisone 2.5 mg daily Assessment & Plan (12/05/2023 11:06 AM EDT): History of polyarticular arthritis (R ankle, R knee, R wrist, neck). 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 On 10/1am, woke up with acute atraumatic R wrist pain radiating into hand limiting movement. Seen in clinic with edematous, warm, tender wrist and hand. Afebrile, labs with elevated ESR/CRP, not neutropenic and no leukocytosis or left shift. Sent to ED to rule out septic arthritis, BCx obtained (NG) and started Vanc. Xray without fracture, showed chondrocalcinosis c/w CPPD. Seen by Plastics; joint aspiration with negative gram stain, showed both uric acid and calcium pyrophosphate crystals, as well as 144k nucleated cells, 94% neutrophils. By 11/29, also had R ankle pain; R ankle Xray without fracture. As part of work-up, obtained additional L wrist xray (moderate to severe degenerative changes) and CT neck (advanced degenerative changes from C3 down to C7 most evident at C4-5 with extreme neural foraminal narrowing on the right). Overall, synovial fluid studies showed evidence of CPPD (pseudogout) and gout. However, given synovial fluid findings of high nucleated cell count & neutrophils, initially also had concern for concurrent septic arthritis, thus ID consulted and covered with Vanc x48h until joint cx NG. Also seen by Ortho who saw no role for joint wash out given lack of synovial fluid cx growth. R wrist pain/ROM/edema significantly improved but continued with whole body aches, migratory joint pains, and cyclical fevers off antibiotics with negative infectious work-up. Constellation of sxs all consistent with polyarticular arthritis/gout/pseudogout, thus ultimately started steroids 12/03. 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 Pain worse with movement including in BUE and in neck, limiting ROM in both. No headache, light sensitivity, fever, weakness, saddle anesthesia, or incontinence. Admitted for MRI entire spine to r/o spinal infection due to recent hx of bacteremia. CT neck from previous admission on 11/29 showed advanced degenerative changes of the cervical spine from C3-C7, most evident at C4-C5 with extreme neural foraminal narrowing on the right. -- F/u MRI spine -- F/u micro -- Voltaren gel PRN -- Oxycodone PRN Pending Micro: -- Bcx 01/14: NGSF Neck pain 01/15/2024 02/06/2024 Lightheaded 12/02/2023 12/06/2023 JEANETH (acute kidney injury) 12/01/2023 Assessment & Plan (12/03/2023 4:44 PM EDT): Baseline Cr 0.7-0.8. JEANETH to Cr of 1.35 on 11/30 with FeNa c/w pre-renal etiology. Received IVF with improvement. Mucositis 11/24/2023 11/29/2023 Assessment & Plan (11/27/2023 1:09 PM EDT): Patient first noted irritation in her mouth on 11/20. Ulceration first seen on 11/22 along with report of pain with swallowing. Increased swelling in the neck noted on 11/23. Pain with swallowing slightly improved. Able to tolerate small amounts of food as of 11/23. Now improved with count recovery. #WHO Mucositis Grading Criteria. Current grade = 0 Highest grade= 2 Diarrhea 11/22/2023 12/06/2023 Assessment & Plan (12/05/2023 10:25 AM EDT): Waxing and waning since conditioning chemo. Reported increased sxs at clinic visit 11/28 consisting of ~12 small BMs a day, sometimes liquid in nature. No associated abd pain/cramping. Infectious stool studies negative thus far. Sxs significantly improved since admission making suspicion for GVHD lower. Also deferred imaging given clinical improvement. -- f/u remainder of infectious stool studies (CMV, entero) -- Imodium prn Assessment & Plan (11/27/2023 1:05 PM EDT): Waxing and waning since conditioning chemo. Increased on 11/18 in frequency and output, repeat c diff negative, resumed anti-diarrheals. Denies abdominal pain or cramping. Bowel movements associated with hemorrhoidal pain, no bleeding. Utilized Imodium and Lomotil PRN. Topical dibucaine, tucks, butt paste PRN and Oxycodone PRN for hemorrhoidal pain. Diarrhea and hemorrhoidal pain are now improved, although continues with loose stools. Neutropenic fever 11/21/2023 11/28/2023 Bacteremia due to Klebsiella pneumoniae 11/14/2023 02/06/2024 Assessment & Plan (12/05/2023 10:33 AM EDT): Admitted on 11/20 during outpt [facility] for febrile neutropenia; found to have Klebsiella pneumonae with ESBL, UCx also grew Klebsiella. Cefepime rotated to Meropenem. Given MDR and risk for central line/PAC seeding ID consulted; switched to Ertapenem following sensitivities and did not feel line/PAC removal was indicated. CT AP on 11/22 negative for pyelonephritis. Notably, patient reported full body itching with onset with end of Meropenem infusion, first time exposure to a carbapenem so ID felt unlikely to be an Ig-mediated reaction. Itching resolved after rotation to ertapenem. Per ID, maintained current central line access and deferred access of PAC (not accessed in >3 weeks) to minimize bacterial seeding. BCx clear since 11/21. Per ID recs, on 14-day course of ertapenem from count recovery (last dose 12/07). -- Continue Ertapenem 1g daily through 12/07 Assessment & Plan (11/27/2023 1:16 PM EDT): Prior admission 11/11-11/15 for febrile neutropenia on D+1 of alloSCT, within 24 hours of stem cell infusion. [facility] notified, patient admitted through ED and started on Zosyn/Vanc, then transitioned to Cefepime. UA non-infectious, Bcx negative, ERVP negative. CXR with no acute abnormalities. Given overall well appearing, narrowed antibiotics to Cefepime and subsequently resumed prophylactic Levaquin, then discharged back to ambulatory SCT clinic on 11/15. Febrile to 102.5 upon presentation to clinic 11/20. BCX NGTD, UA and RVP negative. Reported increased diarrhea without abdominal pain, irritation of mouth/esophagus, and nausea. Started on Cefepime, given fluids, and platelets in clinic. Noted to be febrile following platelet transfusion rxn in clinic, transfusion work-up initiated. Patient admitted for further evaluation and IV antibiotic therapy. Patient HD stable and afebrile at time of admission. Bcx subsequently positive from all sites/bottles for Klebsiella pneumonae with ESBL, UA also with Klebsiella, rotated to meropenem. Given MDR and risk for central line/PAC seeding. ID consulted, switched to Ertapenem following sensitivities and did not feel line removal or port access was indicated, felt we will be able to treat through the infection and keep the lines. CT AP on 11/22 negative for pyelonephritis. Notably, patient reported full body itching with onset with end of Meropenem infusion, first time exposure to a carbapenem so ID felt unlikely to be an Ig-mediated reaction. Itching resolved after rotation to ertapenem. Per ID, maintained current central line access and deferred access of PAC (not accessed in > 3 weeks) to minimize bacterial seeding. Plan to complete 14 day course from count recovery through 12/07. Assessment & Plan (11/15/2023 1:39 PM EDT): Afebrile. Last fever 11/11. Neutropenic. On Levaquin, s/p Cefepime. Source: unclear. Patient initially thought was required to check temperature twice daily at home per outpatient [facility] instructions. Found to be febrile on 11/11 with no new localizing symptoms. Of note, fever within 24 hours of stem cell infusion, notified [facility]. Presented to ED. Afebrile, HDS. Started Zosyn x1 and Vancomycin x1 in ED. UA non-infectious, Bcx NGTD, ERVP negative. CXR with no acute abnormalities. Given overall well appearing, narrowed abx to Cefepime and subsequently resumed ppx Levaquin. -- Stop Cefepime, resume ppx Levaquin -- Notified [facility] of fevers, will contact inpatient team if any cultures return positive -- Follow up pending micro Antimicrobials: -- Zosyn: 11/11 -- Vancomycin: 11/11 -- Cefepime: 11/12 - 11/14 -- Levaquin: 11/14 - present Pending Micro: -- 11/11 Bcx x2: NGTD Chronic health problem 11/14/202302/05 Assessment & Plan (01/16/2024 3:02 PM EST): #HTN - Continue valsartan 160 mg daily. #HLD Previously on simvastatin, no longer taking #Mood - Continue sertraline #T2DM Not on medications. No recent A1C. Glucose 170 in ED, per patient BG elevated s/p recent prednisone taper. 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 Monitored with frequent colonoscopies, EGDs, and renal US. Assessment & Plan (12/05/2023 10:26 AM EDT): #HTN Continue Valsartan-HCTZ 320-25mg daily. #HLD Previously on Simvastatin 20mg nightly, but per patient no longer taking medication. #Mood Continue Zoloft 25mg daily. SW consult also placed for additional support. #T2DM Not on medications. No recent A1C. AM glucoses largely normal; no need for ISS. Will monitor with steroid initiation. 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 Had MJ/BSO in 2016. Monitored with frequent colonoscopies, EGDs, and renal US. Assessment & Plan (11/27/2023 1:03 PM EDT): #HTN On Valsartan-HCTZ 320-25mg. Noted to have SBP in the 150s-170s since admission. Patient missed some doses due to nausea and vomiting. HTN could also be due to elevated Tacrolimus levels. Will continue Valsartan-HCTZ 320-25mg. #HLD Previously on Simvastatin 20mg nightly, per patient on admission no longer taking medication. #Mood Continue home Zoloft 25mg daily #T2DM Not on medications. Stopped glucose checks with low dose ISS with overall stable sugars. 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 Had MJ/BSO in 2015. Monitored with frequent colonoscopies, EGDs, and renal US Assessment & Plan (11/15/2023 1:37 PM EDT): #HTN On Valsartan-HCTZ 320-25mg. Continued Valsartan 320mg, briefly holding HCTZ iso Lasix per TP with Cytoxan -- Plan to resume HCTZ starting D+5 #HLD Previously on Simvastatin 20mg nightly, per patient on admission no longer taking medication. #Mood Continued home Zoloft 25mg daily #T2DM Not on medications. Stopped glucose checks with low dose ISS with overall stable sugars. 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 Had MJ/BSO in 2015. Monitored with frequent colonoscopies, EGDs, and renal US. Chemotherapy-induced nausea 11/14/2023 12/06/2023 Assessment & Plan (12/05/2023 10:27 AM EDT): Zofran, zyprexa zydis, compazine, ativan available prn. Sxs mostly associated with pills; encouraging pt to pre-med prior to taking. Assessment & Plan (11/27/2023 12:58 PM EDT): Received TP antiemetics with Aloxi (last 11/21) and Cinvanti. Per patient, primary trigger is medication. Also utilized Zyprexa, Compazine PRN, Ativan PRN. Most recent Qtc 11/24 458. Nausea now improved. Assessment & Plan (11/14/2023 12:58 PM EDT): Received TP antiemetics with Aloxi and Cinvanti. Has Zyprexa PRN with symptoms well controlled. Most recent Qtc 11/12 414. -- Zyprexa Zydis nightly PRN -- Aloxi per TP, last dose 11/13. No Zofran for 72 hours -- Pepcid daily for GERD Fever 11/12/2023 01/02/2024 Assessment & Plan (12/05/2023 11:01 AM EDT): Febrile, 24h Tmax to 102.6F. On erta as in #Klebsiella bacteremia but fevers more likely from polyarticular arthritis. Hx: Nightly fevers since 11/29 (with exception of 10/3pm). Had initially been c/f septic arthritis as in #polyarticular arthritis but joint tap / NG thus stopped Vanc 12/01 after 48h of negative cxs. Serial BCx remain NG/NGSF thus also not concerned for recrudescence of #bacteremia. Remains clinically well-appearing overall but continues with whole body aches/pains as well as migratory joint pains. Sent off tick-borne illness studies 12/03 given joint pain (lower suspicion given lack of exposure). Also re-engaged ID 12/03 for other possible infectious etiology. However, highest suspicion remains for inflammtory etiology as can see fevers with polyarticular arthralgias/gout/pseudogout. Given ongoing negative infectious work-up, ultimately started steroids on 12/03. -- Appreciate ID recs (following peripherally) -- f/u pending micro Pending micro BCx 11/30, 12/02, 12/03: NGSF Lyme, Ehrlichia, Babesia, parasite smear 12/03 Stem cell transplant candidate 10/07/2023 11/29/2023 Anemia 02/15/2023 03/05/2024 Assessment & Plan (12/05/2023 10:27 AM EDT): Previously pancytopenic from recent transplant. Engrafted since 11/24. Remains with anemia. -- Transfuse for Hct <21, Plt <10 Assessment & Plan (11/27/2023 1:03 PM EDT): Pancytopenic from conditioning chemotherapy. Received 1 unit of PLT in clinic 11/20 with intense rigors, received demerol, methylpred, and pepcid. Denies SOB, difficulty breathing, wheezing. Given profound bacteremia as in #F&N, suspect rigors due to infection rather than transfusion reaction. Per blood bank, does not require pre-meds with future transfusions. Transfused for HCT <21 or plts <10k. GCSF 480mg daily continued through engraftment (last dose 11/24PM) Assessment & Plan (11/15/2023 12:13 PM EDT): Pancytopenic from conditioning chemotherapy. -- Transfuse if HCT <21 or plts <10k -- Transfuse 1 unit pRBC on 11/14 -- Zarxio 480mg daily to start D+5 and continue through engraftment High blood pressure 02/15/2023 11/14/19 24 Assessment & Plan (11/13/2023 2:39 PM EDT): Holding valsartan and HCTZ, restart when BP's are stable High cholesterol 02/15/2023 11/14/2023 Assessment & Plan (11/13/2023 2:39 PM EDT): Holding statin Encounters Date Type Department Care Team Description 02/04/2025 Orders Only Division of Hematologic Oncology, [facility] [address] [facility], [address] [place] [address] Srikanth Collazo, NADIR Myelodysplastic syndrome with excess blasts-1 (Primary Dx); History of allogeneic stem cell transplant 01/29/2025 3:00 PM EST Office Visit Division of Hematologic Oncology, [facility] [address] [facility], [address] [place] [address] Guerita Rodriges MD, MPH Myelodysplastic syndrome with excess blasts-1 (Primary Dx); MDS (myelodysplastic syndrome); History of allogeneic stem cell transplant; MGUS (monoclonal gammopathy of unknown significance) 01/29/2025 1:30 PM EST Office Visit [facility] Gastroenterology Liver Program [address] [place] [phone] Srikanth Collazo, NADIR MDS (myelodysplastic syndrome); History of allogeneic stem cell transplant 01/18/2025 Lab Requisition [facility] Histocmpatibility Lab [address] [place] [address] Guerita Rodriges MD, MPH Myelodysplastic syndrome, unspecified 01/17/2025 1:45 PM EST Infusion Infusion Therapy Services [address], [address] [place] [address] Guerita Rodriges MD, MPH Leanna Andrade RN History of allogeneic stem cell transplant (Primary Dx) 01/17/2025 1:00 PM EST Office Visit Division of Hematologic Oncology, [facility] [address] [facility], [address] [place] [address] Srikanth Collazo, NADIR MDS (myelodysplastic syndrome) (Primary Dx); History of allogeneic stem cell transplant 01/16/2025 Orders Only Laboratory Services, [address], [address] [place] [address] Heri Barrett MA History of allogeneic stem cell transplant (Primary Dx) 12/27/2024 Orders Only Division of Hematologic Oncology, [address], [address] [place] [phone] [place] Srikanth MonteroNADIR 12/20/2024 12:30 PM EDT - 12/20/2024 11:59 PM EDT Hospital Encounter Procedure Suite, [address], [address] [place] [id number] Yen Huggins, RN MEDICARE Guerita Rodriges MD, MPH Discharge Disposition: Home or Self Care 12/20/2024 11:30 AM EDT Nurse Only Division of Hematologic Oncology, [address], [address] [place] [phone] Saji Castro MD Brock, Jennifer Thompson, FRANK 12/20/2024 11:30 AM EDT Office Visit Division of Hematologic Oncology, [address], [address] [place] [phone] Guerita Rodriges MD, MPH MDS (myelodysplastic syndrome) (Primary Dx); History of allogeneic stem cell transplant; Myelodysplastic syndrome with excess blasts-1; MGUS (monoclonal gammopathy of unknown significance); Echevarria syndrome 12/18/2024 Telephone Procedure Suite, [address], [address] [place] [phone] Julita Gloria, FRANK Pre-Procedure (Bone marrow biopsy with IVCS) 12/18/2024 Orders Only Division of Hematologic Oncology, [address], [address] [place] [phone] Guerita Rodriges MD, MPH History of allogeneic stem cell transplant (Primary Dx) 12/17/2024 Orders Only Procedure Suite, [address], [address] [place] [phone] Yen Huggins NP 12/04/2024 Orders Only Division of Hematologic Oncology, [address], [address] [place] [address] Srikanth Collazo, NADIR 12/01/2024 Refill Division of Hematologic Oncology, [address], [address] [place] [address] Srikanth Collazo CNP Medication Refill 11/30/2024 Orders Only Division of Hematologic Oncology, [address], [address] [place] [address] Guerita Rodriges MD, MPH History of allogeneic stem cell transplant (Primary Dx) 11/27/2024 2:15 PM EDT Infusion Infusion Therapy Services [address], [address] [place] [address] Guerita Rodriges MD, MPH Gilberto Rasheed RN History of allogeneic stem cell transplant (Primary Dx) 11/27/2024 1:30 PM EDT Nurse Only Division of Hematologic Oncology, [address], [address] [place] [phone] Saji Castro MD Brock, Jennifer Thompson, RN Vitamin D deficiency, unspecified (Primary Dx); MDS (myelodysplastic syndrome); History of allogeneic stem cell transplant; Immunodeficiency due to drugs 11/27/2024 1:30 PM EDT Office Visit Division of Hematologic Oncology, [address], [address] [place] [phone] Guerita Rodriges MD, MPH Myelodysplastic syndrome with excess blasts-1 (Primary Dx); History of allogeneic stem cell transplant from Last 3 Months Immunizations Immunization Administration Dates Next Due COVID-19 Pfizer Comirnaty Vaccine 12+ ,08/20/2024,06/19/2024,04/10 Dtap, 5 Pertussis Antigens 11/27/2024,08/20/2024 Hep A-Hep B 11/27/2024 Hepatitis B Adult 01/17/2025 Hib,PRP-T 11/27/2024,08/20/2024 IPV 11/27/2024,08/20/2024 Meningococcal MCV4O 01/17/2025,11/27/2024 Pneumococcal conjugate PCV21 11/27/2024,08/21/19 25 RSV Vaccine (monovalent, adjuvanted) 03/26/2024 Zoster recombinant 11/27/2024,08/20/2024 Family History Medical History Relation Comments Brain cancer Brother Kidney cancer Father Breast cancer Mother Ovarian cancer Sister Relation Status Comments Brother Father Mother Sister Alive Social History Tobacco Use Types Packs/Day Years Used Date Smoking Tobacco: Former Cigarettes 1 5 Smokeless Tobacco: Never Tobacco Cessation:Counseling Given: Not Answered Alcohol Use Standard Drinks/Week Comments Yes 0 [...] Orientation Straight 01/10/2023 10 :51 PM EST Last Filed Vital Signs Vital Sign Reading Time Taken Comments Blood Pressure 120/57 01/29/2025 2:46 PM EST Pulse 79 01/29/2025 2:46 PM EST Temperature 36.8 C (98.2 F) 01/29/2025 2:46 PM EST Respiratory Rate 18 01/29/2025 2:44 PM EST Oxygen Saturation 95% 01/29/2025 2:46 PM EST Inhaled Oxygen Concentration - - Weight 68.1 kg (150 lb 2.1 oz) 01/29/2025 2:44 P M EST Height 154.5 cm (5' 0.83 ) 09/04/2024 1:10 PM ED T Body Mass Index 28.53 09/04/2024 1:10 PM EDT Plan of Treatment Upcoming Encounters Date Type Department Care Team (Late st Contact Info) Description 02/19/2025 3:30 PM EST Blood Draw Laboratory Services, [facility] [address] [place] [address], [address] [place] [address] Guerita Rodriges MD, MPH [address] [place] [phone] [email or web address] 02/19/2025 4:30 PM EST Office Visit Division of Hematologic Oncology, [address], [address] [place] [phone] Guerita Rodriges MD, MPH [address] [place] [phone] [email or web address] 03/19/2025 12:10 PM EST Blood Draw Laboratory Services, [address], [address] [place] [phone] Guerita Rodriges MD, MPH [address] [place] [phone] [email or web address] 03/19/2025 1:00 PM EST Office Visit Division of Hematologic Oncology, [address], [address] [place] [phone] Guerita Rodriges MD, MPH [address] [place] [phone] [email or web address] 03/19/2025 1:45 PM EST Infusion [facility]fusion [facility] Services [email or web address], [address], [address] [place] [address] Guerita Rodriges MD, MPH [address] [place] [phone] [email or web address] 05/21/2025 12:10 PM EDT Blood Draw Laboratory Services, [address], [address] [place] [address] Guerita Rodriges MD, MPH [address] [place] [phone] [email or web address] 05/21/2025 1:00 PM EDT Office Visit Division of Hematologic Oncology, [facility] [address] [facility], [address] [place] [address] Srikanth Collazo, DIRECTOR OF RESEARCH CENTER [address] [place] [phone] [email or web address] 05/21/2025 1:45 PM EDT Infusion Infusion Therapy Services [address] [facility], [address] [place] [address] Guerita Rodriges MD, MPH [address] [place] [address] [email or web address] Health Maintenance Due Date Last Done Comments HEMOGLOBIN A1C 1950 DEPRESSION SCREENING 1962 SMOKING Hx and SMOKELESS TOBACCO SCREENING 1963 MAMMOGRAM 1990 COLOGUARD 1995 COLONOSCOPY 1995 COLORECTAL CANCER SCREENING 1995 FIT TEST 1995 FOBT 1995 SIGMOIDOSCOPY 1995 VIRTUAL COLONOSCOPY 1995 OSTEOPOROSIS SCREENING INITIAL (ONE-TIME) 2015 Adult Td,Tdap Booster 09/07/2021 09/08/2011 DIABETIC EYE EXAM 02/15/2023 HIB VACCINES (3 of 3 - Risk 3-dose series) 12/25/2024 11/27/2024, 08/20/2024 COVID-19 VACCINE ( season) 2025 11/27/2024, 08/20/2024, 06/19/2024, Additional history exists BLOOD PRESSURE 07/30/2025 01/29/2025 LIPID PANEL 12/20/2025 12/20/2024, 10/11/2023 CREATININE LEVEL 01/29/2026 01/29/2025, , 12/20/2024, Additional history exists POTASSIUM LEVEL 01/29/2026 01/29/2025, 12/30, 12/20/2024, Additional history exists RSV VACCINE Completed 03/26/2024, 12/17/2022 HEPATITIS A VACCINES Aged Out 11/27/2024 No long er eligible based on patient's age to complete this topic PNEUMOCOCCAL VACCINES (50+ years) Completed 11/27/2024, 08/20/2024, 07/22/2016, Additional history exists ZOSTER VACCINES Completed 11/27/2024, 07/30, 05/05/2022, Additional history exists INFLUENZA VACCINE Completed 12/08/2024, , 12/17/2022, Additional history exists HEPATITIS C SCREENING Completed 12/20/2024 , 10/01/2024, 02/01/2024, Additional history exists MENINGOCOCCAL VACCINES (ACWY) Aged Out 01/17/2025, 11/27/2024 No longer eligibl e based on patient's age to complete this topic MENINGOCOCCAL VACCINES (B) Aged Out N o longer eligible based on patient's age to complete this topic Medical Devices Not on file Procedures Procedure Name Priority Date/Time Associated Diagnosis Comments CBC AND DIFFERENTIAL Routine 01/29/2025 2:19 PM EST MDS (myelodysplastic syndrome) History of allogeneic stem cell transplant MAGNESIUM Routine 01/29/2025 2:19 PM EST MDS (myelodysplastic syndrome) History of allogeneic stem cell transplant LDH Routine 01/29/2025 2:19 PM EST MDS (myelodysplastic syndrome) History of allogeneic stem cell transplant IMMUNOGLOBULIN G Routine 01/29/2025 2:19 PM EST MDS (myelodysplastic syndrome) History of allogeneic stem cell transplant SREEDHAR-WORKMAN VIRUS (EBV) PCR AND QUANTIFICATION Routine 01/29/2025 2:19 PM EST MDS (myelodysplastic syndrome) History of allogeneic stem cell transplant COMPREHENSIVE METABOLIC PANEL (CMP) Routine 01/29/2025 2:19 PM EST MDS (myelodysplastic syndrome) History of allogeneic stem cell transplant CBC AND DIFFERENTIAL Routine 01/29/2025 2:19 PM EST MDS (myelodysplastic syndrome) History of allogeneic stem cell transplant BILIRUBIN, DIRECT Routine 01/29/2025 2:1 9 PM EST MDS (myelodysplastic syndrome) History of allogeneic stem cell transplant ADENOVIRUS, QUANTITATIVE PCR, BLOOD Routine 01/29/2025 2:19 PM EST MDS (myelodysplastic syndrome) History of allogeneic stem cell transplant (1,3) [id number] (FUNGITELL) Routine 01/29/2025 2:19 PM EST MDS (myelodysplastic syndrome) History of allogeneic stem cell transplant Cytomegalovirus (CMV) PCR, blood Routine 01/29/2025 2:19 PM EST MDS (myelodysplastic syndrome) History of allogeneic stem cell transplant CHIMERISM RESULTS - [facility] Routine 01/18/20 12:49 PM EST Myelodysplastic syndrome, unspecified TYPE AND SCREEN (ABO, RH, ANTIBODY SCREEN) Routine 01/17/2025 12:49 PM EST MDS (myelodysplastic syndrome) History of allogeneic stem cell transplant Myelodysplastic syndrome with excess blasts-1 MGUS (monoclonal gammopathy of unknown significance) Echevarria syndrome CBC AND DIFFERENTIAL Routine 01/17/2025 12:49 PM EST MDS (myelodysplastic syndrome) History of allogeneic stem cell transplant Myelodysplastic syndrome with excess blasts-1 MGUS (monoclonal gammopathy of unknown significance) Echevarria syndrome ADENOVIRUS, QUANTITATIVE PCR, BLOOD Routine 01/17/2025 12:49 PM EST MDS (myelodysplastic syndrome) History of allogeneic stem cell transplant Myelodysplastic syndrome with excess blasts-1 MGUS (monoclonal gammopathy of unknown significance) Echevarria syndrome (1,3) [id number] (FUNGITELL) Routine 01/17/2025 12:49 PM EST MDS (myelodysplastic syndrome) History of allogeneic stem cell transplant Myelodysplastic syndrome with excess blasts-1 MGUS (monoclonal gammopathy of unknown significance) Echevarria syndrome SREEDHAR-WORKMAN VIRUS (EBV) PCR AND QUANTIFICATION Routine 01/17/2025 12:49 PM EST MDS (myelodysplastic syndrome) History of allogeneic stem cell transplant Myelodysplastic syndrome with excess blasts-1 MGUS (monoclonal gammopathy of unknown significance) Echevarria syndrome IMMUNOGLOBULINS IGG, IGA, IGM Routine 01/17/2025 12:49 PM EST MDS (myelodysplastic syndrome) History of allogeneic stem cell transplant Myelodysplastic syndrome with excess blasts-1 MGUS (monoclonal gammopathy of unknown significance) Echevarria syndrome TYPE AND SCREEN (ABO,RH,ANTIBODY SCREEN) Routine 01/17/2025 12:49 PM EST MDS (myelodysplastic syndrome) History of allogeneic stem cell transplant Myelodysplastic syndrome with excess blasts-1 MGUS (monoclonal gammopathy of unknown significance) Echevarria syndrome MAGNESIUM Routine 01/17/2025 12:49 PM EST MDS (myelodysplastic syndrome) History of allogeneic stem cell transplant Myelodysplastic syndrome with excess blasts-1 MGUS (monoclonal gammopathy of unknown significance) Echevarria syndrome LDH Routine 01/17/2025 12:49 PM EST MDS (myelodysplastic syndrome) History of allogeneic stem cell transplant Myelodysplastic syndrome with excess blasts-1 MGUS (monoclonal gammopathy of unknown significance) Echevarria syndrome COMPREHENSIVE METABOLIC PANEL (CMP) Routine 01/17/2025 12:49 PM EST MDS (myelodysplastic syndrome) History of allogeneic stem cell transplant Myelodysplastic syndrome with excess blasts-1 MGUS (monoclonal gammopathy of unknown significance) Echevarria syndrome CBC AND DIFFERENTIAL Routine 01/17/2025 12:49 PM EST MDS (myelodysplastic syndrome) History of allogeneic stem cell transplant Myelodysplastic syndrome with excess blasts-1 MGUS (monoclonal gammopathy of unknown significance) Echevarria syndrome CHIMERISM, GRANULOCYTES, BLOOD ([facility]) Routine 01/17/2025 12:49 PM EST MDS (myelodysplastic syndrome) History of allogeneic stem cell transplant Myelodysplastic syndrome with excess blasts-1 MGUS (monoclonal gammopathy of unknown significance) Echevarria syndrome CHIMERISM, T-CELLS, BLOOD ([facility]) Routine 01/17/2025 12:49 PM EST MDS (myelodysplastic syndrome) History of allogeneic stem cell transplant Myelodysplastic syndrome with excess blasts-1 MGUS (monoclonal gammopathy of unknown significance) Echevarria syndrome GALACTOMANNAN, BLOOD Routine 01/17/2025 12:49 PM EST MDS (myelodysplastic syndrome) History of allogeneic stem cell transplant Myelodysplastic syndrome with excess blasts-1 MGUS (monoclonal gammopathy of unknown significance) Echevarria syndrome Cytomegalovirus (CMV) PCR, blood Routine 01/17/2025 12:49 PM EST MDS (myelodysplastic syndrome) History of allogeneic stem cell transplant Myelodysplastic syndrome with excess blasts-1 MGUS (monoclonal gammopathy of unknown significance) Echevarria syndrome BONE MARROW BIOPSY AND ASPIRATE Routine 12/20/2024 1:37 PM EDT MDS (myelodysplastic syndrome) Iron stain, bone marrow Routine 12/21/19 12:55 PM EDT Bone marrow aspirate Routine 12/20/2024 12:55 PM EDT ECG 12-LEAD Routine 12/20/2024 11:44 AM EDT MDS (myelodysplastic syndrome) History of allogeneic stem cell transplant LDH Routine 12/20/2024 10:38 AM EDT History of allogeneic stem cell transplant LUTEINIZING HORMONE (LH) Routine 12/20/2024 10:38 AM EDT MDS (myelodysplastic syndrome) History of allogeneic stem cell transplant FSH Routine 12/20/2024 10:38 AM EDT MDS (myelodysplastic syndrome) History of allogeneic stem cell transplant THYROID STIMULATING HORMONE (TSH) Routine 12/20/2024 10:38 AM EDT MDS (myelodysplastic syndrome) 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 URINALYSIS Routine 12/20/2024 10:38 AM EDT MDS (myelodysplastic syndrome) History of allogeneic stem cell transplant FERRITIN Routine 12/20/2024 10:38 AM EDT MDS (myelodysplastic syndrome) History of allogeneic stem cell transplant 25-OH VITAMIN D Routine 12/20/2024 10:38 AM EDT Vitamin D deficiency, unspecified MDS (myelodysplastic syndrome) History of allogeneic stem cell transplant T-CELL SHORT PANEL Routine 12/20/2024 10 :38 AM EDT MDS (myelodysplastic syndrome) History of allogeneic stem cell transplant SPEP PANEL WITH IMMUNOFIXATION Routine 12/20/2024 10:38 AM EDT Myelodysplastic syndrome with excess blasts-1 History of allogeneic stem cell transplant PASQ3 W PLASMA Routine 12/20/2024 10:38 AM EDT MDS (myelodysplastic syndrome) LIPID PANEL Routine 12/20/2024 10:38 AM EDT MDS (myelodysplastic syndrome) History of allogeneic stem cell transplant High risk medication use URIC ACID Routine 12/20/2024 10:38 AM EDT MDS (myelodysplastic syndrome) PHOSPHORUS Routine 12/20/2024 10:38 AM EDT MDS (myelodysplastic syndrome) MAGNESIUM Routine 12/20/2024 10:38 AM EDT MDS (myelodysplastic syndrome) COMPREHENSIVE METABOLIC PANEL (CMP) Routine 12/20/2024 10:38 AM EDT MDS (myelodysplastic syndrome) HC BLOOD COUNT COMPLETE AUTO&AUTO DIFRNTL WBC Routine 12/20/2024 10:38 AM EDT MDS (myelodysplastic syndrome) GRANULOCYTE CHIMERISM Routine 12/20/2024 10:38 AM EDT History of stem cell transplant T-CELL CHIMERISM Routine 12/20/2024 10:3 8 AM EDT History of stem cell transplant POST BMT CHIMERISM BLOOD Routine 12/20/2024 10:38 AM EDT History of stem cell transplant HEPATITIS C VIRAL LOAD, PCR Routine 12/20/2024 10:38 AM EDT MDS (myelodysplastic syndrome) History of allogeneic stem cell transplant Hepatitis B viral load (PCR) Routine 12/20/2024 10:38 AM EDT MDS (myelodysplastic syndrome) History of allogeneic stem cell transplant ADENOVIRUS PCR, BLOOD Routine 12/20/2024 10:38 AM EDT MDS (myelodysplastic syndrome) GALACTOMANNAN, BLOOD Routine 12/20/2024 10:38 AM EDT MDS (myelodysplastic syndrome) 1-3-BETA D GLUCAN Routine 12/20/2024 10: 38 AM EDT MDS (myelodysplastic syndrome) Sreedhar-Workman virus (EBV) PCR, blood Routine 12/20/2024 10:38 AM EDT MDS (myelodysplastic syndrome) Cytomegalovirus (CMV) PCR, blood Routine 12/20/2024 10:38 AM EDT MDS (myelodysplastic syndrome) PULMONARY FUNCTION TEST Routine 12/21/19 9:18 AM EDT History of allogeneic stem cell transplant SERUM PROTEIN ELECTROPHORESIS Routine 12/20/2024 12:00 AM EDT RAPID HEME PANEL Routine 12/20/2024 12:0 0 AM EDT CYTOGENETICS Routine 12/20/2024 12:00 AM EDT BONE MARROW Routine 12/20/2024 12:00 AM EDT CHIMERISM - RECIPIENT/DONOR INFORMATION AND RESULTS Routine 12/20/2024 12:00 AM EDT URIC ACID Routine 11/27/2024 11:58 AM EDT MDS (myelodysplastic syndrome) PHOSPHORUS Routine 11/27/2024 11:58 AM EDT MDS (myelodysplastic syndrome) MAGNESIUM Routine 11/27/2024 11:58 AM EDT MDS (myelodysplastic syndrome) LDH Routine 11/27/2024 11:58 AM EDT MDS (myelodysplastic syndrome) COMPREHENSIVE METABOLIC PANEL (CMP) Routine 11/27/2024 11:58 AM EDT MDS (myelodysplastic syndrome) HC BLOOD COUNT COMPLETE AUTO&AUTO DIFRNTL WBC Routine 11/27/2024 11:58 AM EDT MDS (myelodysplastic syndrome) ADENOVIRUS PCR, BLOOD Routine 11/27/2024 11:58 AM EDT MDS (myelodysplastic syndrome) GALACTOMANNAN, BLOOD Routine 11/27/2024 11:58 AM EDT MDS (myelodysplastic syndrome) 1-3-BETA D GLUCAN Routine 11/27/2024 11: 58 AM EDT MDS (myelodysplastic syndrome) Sreedhar-Workman virus (EBV) PCR, blood Routine 11/27/2024 11:58 AM EDT MDS (myelodysplastic syndrome) Cytomegalovirus (CMV) PCR, blood Routine 11/27/2024 11:58 AM EDT MDS (myelodysplastic syndrome) from Last 3 Months Results * (ABNORMAL) Lactate Dehydrogenase (LDH) (01/29/2025 2:19 PM EST) Only the most recent of4 resultswithin the time period is included. LDH 245(H) 135 - 214 U/L 01/29/2025 3:01 PM EST [facility] Blood (Blood) Catheter/Line / Unknown 01/29/2025 2:19 PM EST 01/29/2025 2:39 PM EST us Srikanth Montero Vale DIRECTOR OF [facility] LAB BLOOD BKR ORDERAB LES Final Result [facility] [address] [place] [address] * (ABNORMAL) Comprehensive Metabolic Panel (CMP) (01/29/2025 2:19 PM EST) Only the most recent of4 resultswithin the time period is included. Sodium 139 136 - 145 mmol/L 01/29/2025 3:01 PM EST [facility] Potassium 4.0 3.4 - 5.1 mmol/L 01/29/2025 3:01 PM EST [facility] Chloride 102 98 - 107 mmol/L 01/29/2025 3:01 PM EST [facility] CO2 26 20 - 31 mmol/L 01/29/2025 3:01 PM EST [facility] Anion Gap 11 3 - 17 mmol/L 01/29/2025 3:01 PM EST [facility] BUN 25(H) 6 - 23 mg/dL 01/29/2025 3:01 PM EST [facility] Creatinine 1.36(H) 0.50 - 1.00 mg/dL 01/29/2025 3:01 PM EST [facility] eGFR 41(L) >59 mL/min/1.7 3m2 01/29/2025 3:01 PM EST [facility] Comment:Estimated glomerular filtration rate calculated using the CKD-EPI refit equation. Glucose 115(H) 70 - 99 mg/dL 01/29/2025 3:01 PM EST [facility] Calcium 9.3 8.5 - 10.5 mg/dL 01/29/2025 3:01 PM EST [facility] AST 161(H) <33 U/L 01/29/2025 3:01 PM EST [facility] ALT 173(H) <34 U/L 01/29/2025 3:01 PM EST [facility] Alkaline Phosphatase 243(H) 40 - 130 U/L 01/29/2025 3:01 PM EST [facility] Bilirubin, Total 0.4 0.0 - 1.2 mg/dL 01/29/2025 3:01 PM EST [facility] Total Protein 7.5 6.4 - 8.3 g/dL 01/29/2025 3:01 PM EST [facility] Albumin 4.1 3.5 - 5.2 g/dL 01/29/2025 3:01 PM EST [facility] Globulin 3.4 1.9 - 4.1 g/dL 01/29/2025 3:01 PM EST [facility] Blood (Blood) Catheter/Line / Unknown 01/29/2025 2:19 PM EST 01/29/2025 2:39 PM EST Srikanth Collazo DIRECT[facility] LAB BLOOD BKR ORDERAB LES Final Result [facility] [address] [place] [address] * Adenovirus, Quantitative PCR, Blood (01/29/2025 2:19 PM EST) Only the most recent of2 resultswithin the time period is included. Adenovirus DNA Detectection and Quantification Undetected Undetected IU/mL 02/01/2025 10:08 AM EST [facility] Comment: Result in log IU/mL is Undetected. Adenovirus (ADV) DNA is not detected. ADDITIONAL INFORMATION This laboratory-developed, real-time PCR assay has a quantification range of 30 to 10,000,000 IU/mL (1.48 log to 7.00 log IU/mL). This test was developed and its performance characteristics determined by [facility] in a manner consistent with CLIA requirements. This test has not been cleared or approved by the U.S. Food and Drug Administration. Blood (Blood) Catheter/Line / Unknown 01/29/2025 2:19 PM EST 01/29/2025 2:39 PM EST us Srikanth Collazo [facility] LAB BLOOD BKR ORDERAB LES Final Result [facility] [address] [phone] * (1,3) [id number]-Jqefap (Fungitell) (01/29/2025 2:19 PM EST) Only the most recent of2 resultswithin the time period is included. [facility] [employer] Quantitative Value <31 <60 pg/mL pg/mL 01/31/2025 10:44 AM EST [facility] Fungitell Qualitative Result Negative Negative 01/31/2025 10:44 AM EST [facility] Comment: No (1, 3) Ibax-I-Rwvjcd detected. This assay does not detect certain fungi, including Cryptococcus species, which produce very low levels of (1, 3) Zqjb-Z-Irtjwo (BDG) and the Mucorales (e.g., Lichthemia, Mucor and Rhizopus), which are not known to produce BDG. Additionally, the yeast phase of Blastomyces dermatitidis produces little BDG and may not be detected by this assay. ADDITIONAL INFORMATION This assay was performed using the FDA-cleared Fungitell Assay ([facility] [employer], [place], [place], [place]), a kinetic [employer] based on modification of the Limulus Amebocyte Lysate pathway. Blood (Blood) Catheter/Line / Unknown 01/29/2025 2:19 PM EST 01/29/2025 2:39 PM EST Srikanth Englenewell [facility] LAB BLOOD BKR ORDERAB LES Final Result Performing Organization Address City/[facility]/ZIP Co de Phone Number HELLER (BEAKER) [address] [phone] * (ABNORMAL) Sreedhar-Workman Virus (EBV) PCR and Quantification (01/29/2025 2:19 PM EST) Only the most recent of2 resultswithin the time period is included. EBV DNA Detect/Quant, P <35(A) Undetected IU/mL 02/01/2025 11:44 AM EST [facility] Comment: Result in log IU/mL is <1.54. EBV DNA is detected, but level present is <35 IU/mL (<1.54 log IU/mL). This assay cannot accurately quantify EBV DNA below this level. ADDITIONAL INFORMATION The quantification range of this assay is 35 to 100,000,000 IU/mL (1.54 log to 8.00 log IU/mL). Testing was performed using the kenya EBV test ([employer] Blood (Blood) Catheter/Line / Unknown 01/29/2025 2:19 PM EST 01/29/2025 2:39 PM EST Srikanth Montero Vale [facility] LAB BLOOD BKR ORDERAB LES Final Result Performing Organization Address [facility]/ZIP Co de Phone Number HELLER (BEAKER) [address] [phone] * (ABNORMAL) CBC and Differential (01/29/2025 2:19 PM EST) Only the most recent of2 resultswithin the time period is included. WBC 5.38 4.00 - 11.00 K/uL 01/29/2025 2:51 PM EST [facility] RBC 3.45(L) 4.00 - 5.20 M/uL 01/29/2025 2:51 PM EST [facility] Hemoglobin 11.3(L) 12.0 - 16.0 g/dL 01/29/2025 2:51 PM EST [facility] Hematocrit 33.2(L) 36.0 - 46.0 % 01/29/2025 2:51 PM EST [facility] MCV 96.2 80.0 - 100.0 fL 01/29/2025 2:51 PM EST [facility] MCH 32.8(H) 27.0 - 31.0 pg 01/29/2025 2:51 PM EST [facility] MCHC 34.0 32.0 - 36.0 g/dL 01/29/2025 2:51 PM EST [facility] MPV 9.0 8.4 - 12.0 fL 01/29/2025 2:51 PM EST [facility] RDW-CV 15.9(H) 11.5 - 14.5 % 01/29/2025 2:51 PM EST [facility] PLT 275 150 - 450 K/uL 01/29/2025 2:51 PM EST [facility] Neutrophils 55.3 % 01/29/2025 2:51 PM EST [facility] Lymphocytes 25.5 % 01/29/2025 2:51 PM EST [facility] Monocytes 16.9 % 01/29/2025 2:51 PM EST [facility] Eosinophils 1.5 % 01/29/2025 2:51 PM EST [facility] Basophils 0.6 % 01/29/2025 2:51 PM EST [facility] Imm Grans 0.2 % 01/29/2025 2:51 PM EST [facility] NRBC 0.0 <=0.0 /100 WBCs 01/29/2025 2:51 PM EST [facility] Absolute Neutrophils 2.98 1.92 - 7.60 K/uL 01/29/2025 2:51 PM EST [facility] Absolute Lymphocytes 1.37 0.72 - 4.10 K/uL 01/29/2025 2:51 PM EST [facility] Absolute Monocytes 0.91 0.16 - 1.10 K/uL 01/29/2025 2:51 PM EST [facility] Absolute Eosinophils 0.08 0.00 - 0.50 K/uL 01/29/2025 2:51 PM EST [facility] Absolute Basophils 0.03 0.00 - 0.15 K/uL 01/29/2025 2:51 PM EST [facility] Absolute Imm Grans 0.01 0.00 - 0.09 K/uL 01/29/2025 2:51 PM EST [facility] Absolute NRBC 0.00 <=0.00 K cells/uL 01/29/2025 2:51 PM EST [facility] Absolute Neutrophils 2.98 1.92 - 7.60 K/uL 01/29/2025 2:51 PM EST [facility] Diff Type Auto 01/29/2025 2:51 PM EST [facility] Blood (Blood) Catheter/Line / Unknown 01/29/2025 2:19 PM EST 01/29/2025 2:39 PM EST us Srikanth Collazo [facility] LAB BLOOD BKR ORDERAB LES Final Result [facility] [address] [place] [address] * Cytomegalovirus (CMV) Viral Load, PCR, Blood (01/29/2025 2:19 PM EST) Only the most recent of4 resultswithin the time period is included. [facility] CMV DNA Detect/Quant, P Undetected Undetected IU/mL 01/31/2025 12:34 PM EST [facility] Comment: Result in log IU/mL is Undetected. ADDITIONAL INFORMATION The quantification range of this assay is 35 to 10,000,000 IU/mL (1.54 log to 7.00 log IU/mL). Testing was performed using the kenya CMV test ([employer] Blood (Blood) Catheter/Line / Unknown 01/29/2025 2:19 PM EST 01/29/2025 2:40 PM EST [facility] BKR ORDERAB LES Final Result HELLER (BEAKER) [facility] [address] [phone] * Magnesium (01/29/2025 2:19 PM EST) Only the most recent of4 resultswithin the time period is included. [facility] Magnesium 2.1 1.7 - 2.6 mg/dL 01/29/2025 3:01 PM EST [facility] Blood (Blood) Catheter/Line / Unknown 01/29/2025 2:19 PM EST 01/29/2025 2:39 PM EST [facility] BLOOD BKR ORDERAB LES Final Result [facility] [address] [place] [address] * Immunoglobulin G (01/29/2025 2:19 PM EST) [facility] Immunoglobulin G 862 700 - 1,600 mg/dL 01/30/2025 2:19 PM EST [facility] Blood (Blood) Catheter/Line / Unknown 01/29/2025 2:19 PM EST 01/29/2025 2:39 PM EST us Srikanth Collazo [facility] LAB BLOOD BKR ORDERAB LES Final Result Performing Organization Address City/[facility]/ZIP Co de Phone Number [facility] [address] [place] [phone] * Bilirubin, Direct (01/29/2025 2:19 PM EST) Pathologist [facility] Bilirubin, Direct 0.2 0.0 - 0.3 mg/dL 01/29/2025 3:01 PM EST [facility] Blood (Blood) Catheter/Line / Unknown 01/29/2025 2:19 PM EST 01/29/2025 2:39 PM EST us [facility]irag [facility] LAB BLOOD BKR ORDERAB LES Final Result Performing Organization Address [facility]/ZIP Co de Phone Number [facility] [address] [place] [phone] * (ABNORMAL) Immunoglobulins IgG, IgA, IgM (01/17/2025 12:49 PM EST) Pathologist [facility] Immunoglobulin G 1,244 700 - 1,600 mg/dL 01/18/2025 11:12 AM EST [facility] Immunoglobulin A 59(L) 70 - 400 mg/dL 01/18/2025 11:12 AM EST [facility] Immunoglobulin M 76 40 - 230 mg/dL 01/18/2025 11:12 AM EST [facility] Blood (Blood) Catheter/Line / Unknown 01/17/2025 12:49 PM EST 01/17/2025 1:03 PM EST Guerita Rodriges MD, MPH LAB BLOOD BKR ORDERABLES F inal Result Performing Organization Address City/[facility]/ZIP Co de Phone Number [facility] [address] [place] [phone] * Type and Screen (ABO, Rh, Antibody Screen) (01/17/2025 12:49 PM EST) ABO/Rh O POS 01/17/2025 11:23 PM EST [facility] B[facility] DONOR [place] Antibody Screen NEG 11:23 PM EST [facility] B[facility] [place] Sample Expiration 23:59 01/17/2025 11:23 PM EST [facility] B[facility] [place] Blood (Blood) Catheter/Line / Unknown 01/17/2025 12:49 PM EST 01/17/2025 1:03 PM EST us Guerita Rodriges MD, MPH LAB BLOOD BANK TEST ORDERA BLES Final Result Performing Organization Address City/[facility]/ZIP Co de Phone Number [facility] BLOOD DONOR [address] [phone] * Chimerism Results ([facility]) (01/17/2025 12:49 PM EST) Pathologist [facility] HLA Report URL See HLA Results Hyperlink 01/28/2025 12:11 PM EST [facility] Blood (Blood) 01/17/2025 12: 49 PM EST 01/18/2025 9:55 AM EST us Guerita Rodriges MD, MPH LAB HLA ORDERABLES Final R esult [facility] [address] [place] [address] * Chimerism, T-Cells, Blood ([facility]) (01/17/2025 12:49 PM EST) HLA Result HLA specimen received. Please look to panel result for discrete and PDF results for outstanding HLA tests. 01/23/2025 1:05 PM EST [facility] Blood (Blood) Catheter/Line / Unknown 01/17/2025 12:49 PM EST 01/17/2025 1:03 PM EST Guerita Rodriges MD, MPH LAB HLA ORDERABLES Final R [facility] Performing Organization Address [facility] Co de Phone Number [facility] [address] [place] [phone] * Chimerism, Granulocytes, Blood ([facility]) (01/17/2025 12:49 PM EST) Pathologist [facility] HLA Result HLA specimen received. Please look to panel result for discrete and PDF results for outstanding HLA tests. 01/23/2025 1:05 PM EST [facility] Blood (Blood) Catheter/Line / Unknown 01/17/2025 12:49 PM EST 01/17/2025 1:03 PM EST Guerita Rodriges MD, MPH LAB HLA ORDERABLES Final [facility] Performing Organization Address [facility] Co de Phone Number [facility] [address] [place] [phone] * Galactomannan, Blood (01/17/2025 12:49 PM EST) Only the most recent of3 resultswithin the time period is included. Pathologist [facility] Aspergillus Ag, S <0.500 <0.5 index 025 1:28 PM EST [facility] [address] Comment: ADDITIONAL INFORMATION This is a qualitative test and the resulted index value is not indicative of disease severity. Serial testing is recommended for patients at high risk for invasive aspergillosis. This assay was performed using the FDA-cleared [employer] Platelia Aspergillus Galactomannan EIA. Blood (Blood) Catheter/Line / Unknown 01/17/2025 12:49 PM EST 01/17/2025 1:02 PM EST us Guerita Rodriges MD, MPH LAB BLOOD BKR ORDERABLES F inal Result HELLER (BEAKER) [facility] [address] [place], [place] [address] [phone] * BONE MARROW BIOPSY AND ASPIRATE (12/20/2024 1:37 PM EDT) Other Narrative Yen Huggins NP - 12/20/2024 1:37 PM EDT Yen Huggins NP 12/20/2024 2:45 PM PROCEDURE: Bone Marrow Biopsy and Aspirate Date/Time: 12/20/2024 1:37 PM Performed by: Yen Huggins NP Authorized by: Maryann Eng MD [place] Protocol: Verbal consent obtained: Yes Written consent obtained: Yes Time out: Immediately prior to the procedure, a time out was called to verify that there is a signed consent form and that the correct patient, planned procedure, site and side are consistent with documentation and that necessary equipment and/or blood products are available prior to the start of the case. Preparation: Preparation: Patient was prepped and draped in usual sterile fashion Estimated blood loss: less than 10cc Procedure Details: Specimens collected: bone marrow core and bone marrow asp (aspirate, MRD to Hematologics, RHP, Cytogenetics, chimerism, research: 283: one green and one edta, and core) Volume removed: 23cc Assisting clinician: Iona Cramer (Bebo Cunha RN-sedation) Anesthesia: Local anesthesia used?: Yes Local anesthetic: Lidocaine 1% without epinephrine Anesthetic total (ml): NO EPI was used due to allergy/sensitivity. , 10cc or less Sedation: Patient sedated?: Yes Sedation: Fentanyl and midazolam Vital signs: Vital signs monitored during sedation Post-procedure: Patient tolerance: patient tolerated the procedure well with no immediate complications Comments: Procedural Moderate Conscious Sedation Intra-service Start Time: 1314 Intra-service Stop Time: 1328 Medications administered: Versed 1mg IV and Fentanyl 100mcg IV. Sedation level achieved and maintained: Moderate sedation, responsive to verbal and light tactile stimulation. Monitoring: Continuous monitoring of heart rate, respiratory rate, blood pressure, oxygen saturation, and ETCO2. Vital signs were stable throughout the procedure. Oxygen saturation maintained at >95% on 2L O2 via nasal cannula. Independent trained observer: Bebo Hamilton RN continuously monitored the patient and recorded vitals every 5 minutes and level of sedation using the Harmeet Sedation Scale every 15 minutes. Resuscitation equipment readily available and functional. Procedure: Patient was placed in the prone position. The posterior iliac crest was identified and marked, and cleansed with chlorhexidine. Local anesthesia was then established to the skin, subcutaneous tissue and outer cortex of the bone with 1% lidocaine. An 11 g OxiCoolshidi needle was inserted into the posterior iliac crest. Liquid aspirate was obtained and spicules were confirmed. The instrument was then advanced and a core biopsy was obtained using the included marrow acquisition cradle. A 1cm core sample was removed. Gentle pressure was applied to the site and hemostasis was achieved. The area was cleansed and dressed. No immediate complications noted. Patient instructed to keep dressing clean and dry and remove in 24 hours. Patient tolerated the procedure well, VSS, pt was minimally sleepy easily responsive to verbal stimuli, anesthesia sufficient. Post-procedure recovery: Sedation recovery monitored by Bebo Wallace RN Modified Rebecca score monitored every 15 minutes until discharge criteria met. Patient returned to pre-sedation level of awareness and was stable for recovery. Patient discharged. Written post-procedure and discharge instructions reviewed and understood. Maryann Eng MD PROCEDURE/MINOR SURGICAL ORDERABLES Final Result * Iron stain, bone marrow (12/20/2024 12:55 PM EDT) IRON STAIN MARROW SEE PATHOLOGY REPORT [facility] 12/20/2024 12:5 5 PM EDT 12/20/2024 3:11 PM EDT Guerita Rodriges MD, MPH LAB BLOOD ORDERABLES Final Result Performing Organization Address City/[facility]/ZIP Co de Phone Number [facility] [address] [place] [address] * Bone marrow aspirate (12/20/2024 12:55 PM EDT) BONE MARROW DIFF SEE PATHOLOGY REPORT [facility] 12/20/2024 12:5 5 PM EDT 12/20/2024 3:11 PM EDT us Guerita Rodriges MD, MPH BODY FLUIDS AND STOOLS ORD ERABLES Final Result Performing Organization Address [facility] Co de Phone Number [facility] [address] [place] [address] * ECG 12-LEAD (12/20/2024 11:44 AM EDT) Pathologist [facility] Ventricular Rate EKG/MIN 64 BPM MUSE_DFCI Atrial Rate [address] Interval 166 ms MUSE_DFCI QRS Duration 84 ms MUSE[facility]DFCI QT Interval 414 ms [facility] QTC Interval 427 ms MUSE_DFCI P [place] 54 degrees MUSE_DFCI R Wave [place] 33 degrees MUSE_DFCI T Wave [place] 51 degrees [facility]USE[facility] Other 12/20/2024 11:4 4 AM EDT Narrative [facility] - 12/21/2024 9:55 AM EDT Normal sinus rhythm Normal ECG When compared with ECG of 11-Oct-2023 12:26, No significant change was found us Guerita Rodriges MD, MPH ECG ORDERABLES Final Resu lt Performing Organization Address [facility] Co de Phone Number [facility]USE[facility]DFCI * Granulocyte Chimerism, Blood (12/20/2024 10:38 AM EDT) Chimerism,Gra ns-bld SEE TISSUE TYPING RPT IN EPIC UNDER CHART REVIEW-LAB [facility] Blood 12/20/2024 10:3 8 AM EDT 12/20/2024 10:43 AM EDT us Guerita Rodriges MD, MPH LAB BLOOD ORDERABLES Final Result [facility] [address] [place] [address] * T-Cell Chimerism, Blood (12/20/2024 10:38 AM EDT) Chimerism,TCe lls-bld SEE TISSUE TYPING RPT IN EPIC UNDER CHART REVIEW-LAB [facility] Blood 12/20/2024 10:3 8 AM EDT 12/20/2024 10:43 AM EDT us Guerita Rodriges MD, MPH LAB BLOOD ORDERABLES Final Result Performing Organization Address [facility] Co de Phone Number [facility] [address] [place] [address] * Post BMT Chimerism, Blood (12/20/2024 10:38 AM EDT) Chimerism,Tot al-bld SEE TISSUE TYPING RPT IN EPIC UNDER CHART REVIEW-LAB [facility] Blood 12/20/2024 10:3 8 AM EDT 12/20/2024 10:43 AM EDT us Guerita Rodriges MD, MPH LAB BLOOD ORDERABLES Final Result Performing Organization Address City/[facility] Co de Phone Number [facility] [address] [place] [address] * PASQ3 W PLASMA (12/20/2024 10:38 AM EDT) Pathologist [facility] Research Test FOR RESEARCH STUDY [facility] Blood 12/20/2024 10:3 8 AM EDT 12/20/2024 10:43 AM EDT us Guerita Rodriges MD, MPH LAB BLOOD ORDERABLES Final Result [facility] [address] [place] [address] * (ABNORMAL) SPEP panel with immunofixation (12/20/2024 10:38 AM EDT) Pathologist [facility] TOTAL PROTEIN 6.9 6.4 - 8.3 g/dL [facility] SPEP SEE PATHOLOGY REPORT [facility] IMMUNOFIXATION SEE PATHOLOGY REPORT [facility] IgA 61(L) 70 - 400 mg/dL [facility] IMMUNOGLOBULIN G 995 700 - 1,600 mg/dL [facility] IMMUNOGLOBULIN M 83 40 - 230 mg/dL [facility] Blood 12/20/2024 10:3 8 AM EDT 12/20/2024 10:42 AM EDT Guerita Rodriges MD, MPH LAB BLOOD BKR ORDERABLES F inal Result Performing Organization Address City/State/[facility] Co de Phone Number [address] [address] * (ABNORMAL) CD4 T-cell count (12/20/2024 10:38 AM EDT) Pathologist [facility] ABSOLUTE LYMPH COUNT 1,483 950 - 2,967 /uL [facility] CD3+ (ABS) 1,102 474 - 1,600 /uL [facility] CD3+ (PCT) 74.3 45.0 - 79.0 %Lymphs [facility] CD3+ CD4+ (ABS) 315 256 - 1,198 /uL [facility] CD3+ CD4+ (PCT) 21.3(L) 26.0 - 64.0 %Lymphs [facility] CD3+ CD8+ (ABS) 782(H) 86 - 556 /uL [facility] CD3+ CD8+ (PCT) 52.7(H) 7.0 - 36.0 %Lymphs [facility] CD4+:CD8+ RATIO 0.40(L) 0.7 - 9.1 [facility] Blood 12/20/2024 10:3 8 AM EDT 12/20/2024 10:42 AM EDT Guerita Rodriges MD, MPH LAB FLOW CYTOMETRY ORDERAB LES Final Result Performing Organization Address City/[facility]/ZIP Co de Phone Number [facility] [address] [place] [address] * Adenovirus PCR, blood (12/20/2024 10:38 AM EDT) Only the most recent of2 resultswithin the time period is included. Pathologist [facility] Adenovirus DNA Detect/Quant, P Undetected Undetected IU/mL [facility] MED[facility]PATH [facility] Comment: (NOTE) Result in log IU/mL is Undetected. Adenovirus (ADV) DNA is not detected. ADDITIONAL INFORMATION This laboratory-developed, real-time PCR assay has a quantification range of 30 to 10,000,000 IU/mL (1.48 log to 7.00 log IU/mL). This test was developed and its performance characteristics determined by [facility] in a manner consistent with CLIA requirements. This test has not been cleared or approved by the U.S. Food and Drug Administration. Blood (Blood) 12/20/2024 10: 38 AM EDT 12/20/2024 10:43 AM EDT us Guerita Rodriges MD, MPH LAB BLOOD BKR ORDERABLES F inal Result Performing Organization Address [facility] Co de Phone Number [facility] MED/[facility] [place] [address] [place] [address] * 1-3-Beta D glucan (12/20/2024 10:38 AM EDT) Only the most recent of2 resultswithin the time period is included. [facility] Nancyll Quantitative Value <31 <60 pg/mL pg/mL [facility]PATH [address] Arredondo Qualitative Result Negative Negative [facility] Comment: (NOTE) No (1, 3) Wtdf-T-Gqwkzl detected. This assay does not detect certain fungi, including Cryptococcus species, which produce very low levels of (1, 3) Hmya-B-Newgmo (BDG) and the Mucorales (e.g., Lichthemia, Mucor and Rhizopus), which are not known to produce BDG. Additionally, the yeast phase of Blastomyces dermatitidis produces little BDG and may not be detected by this assay. ADDITIONAL INFORMATION This assay was performed using the FDA-cleared Fungitell Assay ([facility], [place], [place], [place]), a kinetic [employer] based on modification of the Limulus Amebocyte Lysate pathway. Blood (Blood) 12/20/2024 10: 38 AM EDT 12/20/2024 11:16 AM EDT Guerita Rodriges MD, MPH NON CULTURE MICROBIOLOGY F inal Result Performing Organization Address [facility] Co de Phone Number [facility] MED/PATH [address] [place] [address] * Sreedhar-Workman virus (EBV) PCR, blood (12/20/2024 10:38 AM EDT) Only the most recent of2 resultswithin the time period is included. EBV Blood, PCR Undetected Undetected IU/mL [facility] MED/PATH [facility] Comment: (NOTE) Result in log IU/mL is Undetected. ADDITIONAL INFORMATION The quantification range of this assay is 35 to 100,000,000 IU/mL (1.54 log to 8.00 log IU/mL). Testing was performed using the kenya EBV test ([employer] Blood (Blood) 12/20/2024 10: 38 AM EDT 12/20/2024 10:42 AM EDT Guerita Rodriges MD, MPH LAB BLOOD BKR ORDERABLES F inal Result Performing Organization Address [facility] de Phone Number [facility] MED/PATH [address] [place] [address] * Hepatitis B viral DNA PCR, Quantitative (12/20/2024 10:38 AM EDT) [facility] HBV DNA (IU/mL) Undetected Undetected IU/mL [facility] MED[facility] [place] Comment: (NOTE) Result in log IU/mL is Undetected. ADDITIONAL INFORMATION The quantification range of this assay is 10 to 1,000,000,000 IU/mL (1.00 log to 9.00 log IU/mL). Testing was performed using the kenya HBV test ([employer] Blood (Blood) 12/20/2024 10: 38 AM EDT 12/20/2024 10:42 AM EDT Guerita Rodriges MD, MPH LAB BLOOD BKR ORDERABLES F inal Result Performing Organization Address [facility] de Phone Number [facility]/[address] [place] [address] * Hepatitis C viral load (PCR) (12/20/2024 10:38 AM EDT) [facility] HCV RNA DETECT/QNT Undetected Undetected IU/mL [facility] [place] Comment: (NOTE) Result in log IU/mL is Undetected. ADDITIONAL INFORMATION The quantification range of this assay is 15 to 100,000,000 IU/mL (1.18 log to 8.00 log IU/mL). Testing was performed using the kenya HCV test ([employer] Blood (Blood) 12/20/2024 10: 38 AM EDT 12/20/2024 10:42 AM EDT Guerita Rodriges MD, MPH LAB BLOOD BKR ORDERABLES F inal Result [facility] [address] [address] [place] [address] * (ABNORMAL) 25-OH vitamin D (12/20/2024 10:38 AM EDT) 25 OH VIT D (TOTAL) 54(H) 20 - 50 ng/mL [facility] Comment: <10 ng/mL Severe deficiency 10-19 ng/mL Mild to moderate deficiency 20-50 ng/ml Optimum levels 51-80 ng/mL Increased risk of hypercalciuria >80 ng/mL Toxicity possible Blood 12/20/2024 10:3 8 AM EDT 12/20/2024 10:42 AM EDT Guerita Rodriges MD, MPH LAB BLOOD BKR ORDERABLES F inal Result [facility] [address] [place] [phone] * (ABNORMAL) Urinalysis (12/20/2024 10:38 AM EDT) COLOR LT YELLOW(A) Yellow [facility] CLARITY Clear Clear [facility] GLUCOSE NORMAL NORMAL [facility] BILI Negative Negative [facility] KETONES Negative Negative [facility] SPECIFIC GRAVITY 1.021 1.003 - 1.035 [facility] BLOOD Negative Negative [facility] PH 6.0 4.6 - 8.0 [facility] Protein-UA Negative Negative [facility] UROBILINOGEN NORMAL NORMAL [facility] NITRITE Negative Negative [facility] Leukocyte esterase, ur Negative Negative [facility] WBC 1 0 - 9 /hpf [facility] RBC None 0 - 2 /hpf [facility] BACTERIA None None /hpf [facility] MUCUS Trace(A) None /hpf [facility] Urine (Urine) 12/20/2024 10: 38 AM EDT 12/20/2024 10:44 AM EDT us Guerita Rodriges MD, MPH LAB URINE ORDERABLES Final Result [facility] [address] [place] [address] * (ABNORMAL) CBC and differential (12/20/2024 10:38 AM EDT) Only the most recent of2 resultswithin the time period is included. WBC 6.22 4.00 - 10.00 K/uL [facility] RBC 3.78(L) 3.90 - 6.00 M/uL [facility] HGB 12.2 11.5 - 16.4 g/dL [facility] HCT 36.0 36.0 - 48.0 % [facility] PLT 215 150 - 450 K/uL [facility] MCV 95.2 80.0 - 100.0 fL [facility] MCH 32.3(H) 27.0 - 32.0 pg [facility] MCHC 33.9 32.0 - 36.0 g/dL [facility] RDW 15.9(H) 11.5 - 14.5 % [facility] MPV 9.1 8.4 - 12.0 fL [facility] NRBC 0.00 0 /100 WBCs [facility] ABSOLUTE NRBC 0.00 0 K/uL [facility] DIFF METHOD Auto [facility] NEUTS 55.7 48.0 - 76.0 % [facility] LYMPHS 22.3 18.0 - 41.0 % [facility] MONOS 15.6(H) 4.0 - 11.0 % [facility] EOS 5.1(H) 0.0 - 5.0 % [facility] BASOS 0.8 0.0 - 1.5 % [facility] % IMMATURE GRANS 0.5 0.0 - 1.0 % [facility] ABSOLUTE NEUTS 3.46 1.92 - 7.60 K/uL [facility] ABSOLUTE LYMPHS 1.39 0.72 - 4.10 K/uL [facility] ABSOLUTE MONOS 0.97 0.16 - 1.10 K/uL [facility] ABSOLUTE EOS 0.32 0.00 - 0.50 K/uL [facility] ABSOLUTE BASOS 0.05 0.00 - 0.15 K/uL [facility] ABS IMMATURE GRANS 0.03 0.00 - 0.10 K/uL [facility] Blood 12/20/2024 10:3 8 AM EDT 12/20/2024 10:42 AM EDT us Guerita Rodriges MD, MPH LAB BLOOD BKR ORDERABLES F inal Result Performing Organization Address City/[facility] Co de Phone Number [facility] [address] [place], [place] [id number] * Uric acid (12/20/2024 10:38 AM EDT) Only the most recent of2 resultswithin the time period is included. URIC ACID 4.1 2.4 - 5.7 mg/dL [facility] Blood 12/20/2024 10:3 8 AM EDT 12/20/2024 10:42 AM EDT us Guerita Rodriges MD, MPH LAB BLOOD BKR ORDERABLES F inal Result Performing Organization Address City/[facility]/ZIP Co de Phone Number [facility] [address] [place] [address] * TSH (12/20/2024 10:38 AM EDT) TSH 1.52 0.27 - 4.20 uIU/mL [facility] Blood 12/20/2024 10:3 8 AM EDT 12/20/2024 10:42 AM EDT us Guerita Rodriges MD, MPH LAB BLOOD BKR ORDERABLES F inal Result Performing Organization Address [facility] de Phone Number [facility] [address] [place] [address] * Phosphorus (12/20/2024 10:38 AM EDT) Only the most recent of2 resultswithin the time period is included. PHOSPHORUS 3.1 2.5 - 4.5 mg/dL [facility] Blood 12/20/2024 10:3 8 AM EDT 12/20/2024 10:42 AM EDT us Guerita Rodriges MD, MPH LAB BLOOD BKR ORDERABLES F inal Result Performing Organization Address [facility] de Phone Number [facility] [address] [place] [address] * LH (12/20/2024 10:38 AM EDT) LUTEINIZING HORMONE 21.1 IU/L [facility] PAT+ Comment: (NOTE) REFERENCE VALUE Premenopausal: 1.9-14.6 IU/L (Follicular) 12.2-118.0 IU/L (Midcycle) 0.7-12.9 IU/L (Luteal) Postmenopausal: 5.3-65.4 IU/L Blood 12/20/2024 10:3 8 AM EDT 12/20/2024 10:42 AM EDT Guerita Rodriges MD, MPH LAB BLOOD BKR ORDERABLES F inal Result [facility] PAT+ [address] [place] [address] * FSH (12/20/2024 10:38 AM EDT) FSH 27.1 IU/L [facility] Comment: (NOTE) REFERENCE VALUE Premenopausal: 2.9-14.6 IU/L (Follicular) 4.7-23.2 IU/L (Midcycle) 1.4-8.9 IU/L (Luteal) Postmenopausal: 16.0-157.0 IU/L Blood 12/20/2024 10:3 8 AM EDT 12/20/2024 10:42 AM EDT Guerita Rodriges MD, MPH LAB BLOOD BKR ORDERABLES F inal Result Performing Organization Address [facility] Co de Phone Number [facility] PAT+ [address] [place] [address] * (ABNORMAL) Ferritin (12/20/2024 10:38 AM EDT) Pathologist [facility] FERRITIN 391(H) 13 - 150 ug/L [facility] Blood 12/20/2024 10:3 8 AM EDT 12/20/2024 10:42 AM EDT Guerita Rodriges MD, MPH LAB BLOOD BKR ORDERABLES F inal Result [facility] [address] [place] [address] * (ABNORMAL) Lipid panel (12/20/2024 10:38 AM EDT) Pathologist [facility] CHOLESTEROL 256(H) <200 mg/dL [facility] TRIGLYCERIDES 123 35 - 150 mg/dL [facility] HDL 70 40 - 80 mg/dL [facility] CALCULATED LDL 161(H) 50 - 129 mg/dL [facility] VLDL 25 <31 mg/dL [facility] CARDIAC RISK RATIO 3.7 0.0 - 5.0 D [facility] Blood 12/20/2024 10:3 8 AM EDT 12/20/2024 10:42 AM EDT us Srikanth Collazo [facility] LAB BLOOD BKR ORDERAB LES Final Result [facility] [address] [place] [address] * Pulmonary Function Test Reason for Exam: Evaluation for Clinical Trial ([facility]); Type of PFT Test: Spirometry without bronchodilator, DLCO, Lung Volumes; Performing Location: [facility] (12/20/2024 9:18 AM EDT) Anatomical Region Laterality Modality Other Other 12/20/2024 9:18 AM EDT Narrative 12/20/2024 8:05 PM EDT Cake [employer]er Notes: Spirometry Unable to meet ATS standards. Best results reported.DLCO Reproduceable but does not meet ATS standardVTG Testing is acceptable and reproducible according to ATS standards. Physician Interpretation: FEV1 and FVC are normal, FEV1/VC is reduced. TLC is normal. IMPRESSION:These results are consistent with MINIMAL (FEV1 > LLN) obstructionLung volumes and the single breath diffusing capacity (adjusted for hemoglobin ) are within normal limits. In comparison with PFTs from 06/19/24, FEV1 dropped by 11%, FVC dropped by 6.4%, while DLCO increased by 7%. us Guerita Rodriges MD, MPH PFT ORDERABLES Final Resu lt * Ch[facility] - Recipient/Donor Information and Results (12/20/2024 12:00 AM EDT) 12/20/2024 12/20/2024 4:1 9 PM EDT us Guerita Rodriges MD, MPH LAB BLOOD ORDERABLES Final Result [facility] [address] [place] [address] * Protein Electrophoresis (12/20/2024 12:00 AM EDT) 12/20/2024 12/20/2024 Narrative [facility] - 12/26/2024 9:26 PM EDT CASE: [id number] PATIENT: JAQUELINE OJEDA Date: 1950 Sex: Female [facility] Department of Pathology [address] [place] [address] CLIA License No.: [id number] Processing Supervisor: Shante Ramirez MD, PhD Resident: Saji Marcos MD Pathologist: Barrett Estrada M.D., Ph.D. CLINICAL DATA: Clinical Diagnosis: TEST ORDERED: Serum protein electrophoresis professional interpretation - [facility] 1 Serum immunofixation electrophoresis professional interpretation - [facility] RESULT: Reference range Total Protein 6.9 g/dl 6.4 - 8.3 g/dL Albumin 3.62 g/dl 3.20 - 5.30 g/dL Alpha 1 0.33 g/dl 0.10 - 0.40 g/dL Alpha 2 0.94 g/dl 0.50 - 1.00 g/dL Beta 0.97 g/dl 0.60 - 1.20 g/dL Gamma 1.03 g/dl 0.80 - 1.70 g/dL IgG 995 mg/dL 700 - 1600 mg/dL IgA 61 mg/dL (LO) 70 - 400 mg/dL IgM 83 mg/dL 40 - 230 mg/dL Gamma M Shane 1 0.30 g/dl* MOST RECENT PRIOR SERUM ELECTROPHORESIS RESULTS: Date Beta Gamma Emerson Lambda K/L IgG IgA IgM MSp1 MSp2 MSp3 g/dl g/dl mg/l mg/l mg/dl mg/dl mg/dl g/dl g/dl g/dl 07/10/24 0.81 0.78 15.7 15.1 1.04 767 70 112 02/17/23 0.88 1.33 13.2 50.8 0.26 1233 142 200 0.86 INTERPRETATION: Protein Electrophoresis: -M-spike detected The M-spike is admixed within a background of polyclonal immunoglobulins. The M-spike concentration reported includes both the M-spike and the polyclonal immunoglobulin background and is thus an overestimate. Immunofixation: -Monoclonal gammopathy with IgG Lambda paraprotein By his/her signature below, the senior physician certifies that he/she personally reviewed all the laboratory data of the described specimen(s) and rendered or confirmed the diagnosis(es) related thereto. Final Diagnosis by Barrett Estrada M.D., Ph.D., Electronically signed on Thursday December 26, 2024 at 09:25:23PM us Guerita Rodriges MD, MPH PATHOLOGY ORDERABLES Final Result Performing Organization Address City/State/[facility] Co de Phone Number [facility] [address] [place] [address] * Rapid Heme Panel (12/20/2024 12:00 AM EDT) Results Sample Type: Molec D x marrow ==== RAPID HEME PANEL ==== QC: PASS Pathogenic Single Nucleotide Variants and Small Insertions/Deletions* None Detected. A detailed investigation in igv does NOT identify the following, previously reported mutations above the level of noise of the assay: ASXL1 p.O703Jco*12 (03/1095 reads), CBL p.S376F (0/634), SF3B1 p.T663I (), TET2 p.R1516* (0/628), TET2 p.I122Ppq*6 (), TET2 p.Q790* (0/977), U2AF1 p.Q157R (). A detailed investigation in igv does NOT identify the potentially actionable BRAF p.V600E mutation that can be seen in a minority of cases of myeloma above the level of noise of the assay. The pipeline did not detect any variants in TP53. Copy Number Analysis*: Read count analysis shows no significant copy number alterations in the regions tested. IKZF1 deletion: not detected ERG deletion: not detected KMT2A(MLL)-PTD: not detected *This test assesses only autosomal chromosomal copy number changes. FLT3-ITD Analysis None Detected. This assay has been validated to detect FLT3-ITDs with insert size up to 180 bp. AR (allelic ratio) is approximated as Mutant/Wildtype or Sum(Mutants)/Wildtype and is calculated from the variant allele fraction by the following formula: AR=FLT3-ITD alleles / wild-type alleles. However, the AR may be underestimated for certain ITDs by the technical limitations of the assay and should be considered semi-quantitative only for these cases. The validated limit of ITD detection is 0.01 AR, but lower ARs may be called at the pathologist discretion as clinically indicated. Values <0.01 should be viewed with caution. Other Variants of Unknown Significance (VUS)*: None Detected. A detailed investigation in igv does NOT identify the following, previously reported mutations relative to the sequencing depth achieved: MYC p.R436Q (0/495), CCND1 p.P54A (). *This test is designed for somatic analysis of variants and may provide information about the germline. It cannot distinguish between somatic and germline variants. Germline testing should be ordered separately, as indicated. Some variants on the VUS list may later found to be pathogenic and some may be of germline in nature. The following recurrently mutated codons have wild type sequences only: ABL1 315 BRAF 594 BRAF 595 BRAF 596 BRAF 597 BRAF 600 BRAF 601 CBL 371 CBL 384 CBL 404 CSF3R 615 CSF3R 617 CSF3R 618 DDX41 525 DNMT3A 882 ETNK1 244 FLT3 835 GNAS 201 GNB1 57 IDH1 132 IDH2 140 IDH2 172 JAK2 617 KIT 816 KIT 822 KIT 823 KRAS 12 KRAS 13 KRAS 61 KRAS 146 MAP2K1 57 MAP2K1 121 MPL 505 MPL 515 MYD88 265 NOTCH1 2514 NPM1 287 NPM1 288 NRAS 12 NRAS 13 NRAS 61 NRAS 146 PTPN11 60 PTPN11 61 PTPN11 71 PTPN11 72 PTPN11 73 PTPN11 76 SETBP1 868 SF3B1 625 SF3B1 626 SF3B1 662 SF3B1 666 SF3B1 700 SF3B1 742 SRSF2 95 STAT3 640 STAT3 661 U2AF1 34 U2AF1 156 U2AF1 157 XPO1 571 The following recurrently mutated codons have inadequate coverage(<100X): KRAS 12 KRAS 13 [facility] Results\Inte rpretation QC details*: MTC: 564.6629 ES348v: 93.34% *MTC > 325 and WZ346l > 85% is considered as good quality Test Information: The [facility] Rapid Heme Panel (RHP) Assay is a next generation sequencing assay based on the [employer] kit from [employer] A detailed description of the assay is available upon request from [facility], [facility]. Amplification method: [employer] Direct(R), [employer] Assay Version: Rapid Heme Panel V3.0 Genes: Total 88,(183 KB) whole coding sequence for most genes Sequencing platform: Illumina NextSeq 550Dx, 150bp paired-end reads Raw data processing: BWA Mem (v0.7.17) ANGIE Correction: [employer] (v0.4.0) Variant Caller: Vardict (v1.6.0) CNV Caller: RobustCNV (internally developed) FLT3-ITD: TsaiITD (internally developed) Data File formats: BAM, VCF Genome version: hg19 Metrics: GATK (v.4.0.5.0) and [employer] (v0.4.0) Variant Annotation: Variant Effect Predictor (v79) Pipeline cutoff: 3 Variant Reads and 1% variant allele frequency. Analytical sensitivity: Varies from locus to locus, but is estimated to be 3.0% at 325x consensus coverage The test performed at [facility] were developed and their performance characteristics determined by the Molecular Diagnostic Laboratory in the Department of Pathology at [facility]. They have not been cleared or approved by the U.S. Food and Drug Administration (FDA). The FDA has determined that such clearance or approval is not necessary. The following regions have insufficient number of sequence reads (<100X) for evaluation. Gene Exon Start End Coverage VAMSI e40 [id number] 785394304 40.899090 BRCC3 e2 758253388 915531019 38 CREBBP e01 3135724 1573147 21.914590 e21 9966408 5754099 39.245912 CUX1 e01 300739692 685335083 32.550126 e24 251485349 077187821 18.186080 IDH2 e1 79789438 55326057 6.871578 JAK2 e15 5032459 7903096 47.354373 KMT2A e1 295304597 045041838 8.865605 NF1 e01 43348688 91722992 48.154129 e16 41634695 84233772 22.625 e20 98990931 70967562 47.514531 e24 13249531 79718727 24.481551 e36 44409986 43319787 33.120014 NT5C2 e11 338039397 886951662 22.802507 PTEN e02 23064989 86445842 40.034330 PTPN11 e01 887945031 782039102 26.944192 e14 781385255 636082745 24.243463 RUNX1 e03 79986664 41120894 49.459148 SH2B3 e02 582276130 183312182 19.964579 STAT3 e11 08181184 76344446 48.592309 TERT e01 4926406 4458249 6.499121 Targeted Gene/Exon List (genomic coordinates available upon request): The [facility] Rapid Heme Panel (RHP) Assay is a next generation sequencing assay based on the [employer] kit from [employer]. A detailed description of the assay is available upon request from [facility], [facility]. ABL1 [id number] 5 alt e1 ABL1 LBTW52528430168 5 e1-e10 ASXL1 ASDV35132848177 4 e11-e12 VAMSI AWFE56309420922 4 e2-e63 ATRX PBSL01843662953 5 e1-e35 BCOR AIFP03437657957 4 e2-e15 BCORL1 ELZG79497384257 1 e1-e12 BCORL1 [id number] 1 alt e8 BRAF UFEW06851700028 6 e12-e16 BRCC3 IXVF36917411031 1 e1-e11 BTK CTWD47887257762 7 e11,e15-e16 CALR XTOU11143856931 5 e9 CBL JTGY67678941827 4 e7-e9 CCND1 LHBQ95671217629 2 e1-e5 CD79B LWJT03568866353 3 e5-e6 CDKN2A HRLB74169773149 1 e1-e4 CDKN2A NM_[id number] 1 alt e1 CDKN2B SSCK59011628465 6 e1-e2 CEBPA KBBQ17963809527 2 e1 CREBBP BWXC43837075293 5 e1-e31 CRLF2 IXRM31431123783 3 e5 CSF3R FEWT54893099564 1 e14-e17 SLMA2T5 VHCF63353603328 2 e1-e10 JBXF3E7 YVKB94186189024 2 alt e5 CTCF ICTT14304010238 4 e3-e12 CUX1 EPJM40106406984 7 e1-e24 CUX1 XEDR78976386218 7 alt e1,e15-e23 CXCR4 QBJB17908185590 3 e3 DDX41 YZFI47148307718 1 e1-e17 DKC1 VFMP14618851715 5 e1-e15 DNMT3A DJMT67607314521 3 alt e1-e2 DNMT3A BAMB85213211621 3 e2-e23 DNMT3A [id number] 3 alt e1 EP300 FWRE90245616451 7 e1-e31 ERG URYL25659763483 2 alt e1 ERG AVTB09283129177 2 e3-e12 ERG [id number] 2 alt e12 ETNK1 XCLY57557035263 4 e3 ETV6 ZNBS38160768672 4 e1-e8 EZH2 GCVX17750736213 2 e2-e20 FBXW7 FLGH68179657460 4 e10-e14 FLT3 EKAQ83050997369 7 e14,e16-e17,e20 GATA1 XBLQ18758230373 3 e2-e6 GATA2 MHKI57234599809 2 e2-e6 GNAS FKMN90936374847 3 e8-e9 GNB1 VWIU46290946451 4 e5-e6 IDH1 NCUC20979875111 2 e3-e10 IDH2 NPLC31417658398 3 e1-e11 IKZF1 SFDU41674557109 3 e2-e8 IKZF1 GRYT80320539164 3 alt e4 IKZF1 YJSK60753918308 3 alt e5 IL7R DUDJ59141555362 3 e5-e7 JAK1 PUTR71907848234 4 e10-e25 JAK2 QBYY82202657542 3 e12-e20 JAK3 YWWF41368968367 1 e16-e24 KIT MKGM77331194360 5 e8-e11,e17 KRAS XGGY45007521270 3 e2-e6 KRAS PWHO45568546025 3 alt e5 KMT2A YDMO72717455820 1 e1-e13,e24-e26 MAP2K1 WURS70108505149 5 e2-e3,e6 e28-e30 MPL AOSZ76739301545 3 e4,e10 NF1 GILY81342094349 3 e1-e57 NF1 MUPV48527722594 3 alt e31 MYC UQKN45801459546 2 e1-e3 MYD88 SNCK12792420850 3 e5 NOTCH2 NRUV71613214344 2 e24-e28,e34 NFE2 WNHY68486377479 1 e3-e4 NOTCH1 RBKQ88319786258 6 e24-e28,e34 NSD2 AKCC43155442274 3 e20-e21 NPM1 IPAJ65618714137 5 e10-e11 NRAS RVMC47577985219 4 e2-e5 PIGA GMOL49370411440 4 e1-e62 NT5C2 LBPZ82753464261 5 e10-e18 PHF6 MDYR20732932826 1 e1-e9 PRPF8 RARB07733532133 6 e25-e34 PLCG2 OSBC46798871566 3 e18-e19,e23 e26,e29 PPM1D DXSP06765516964 3 e6 RAD21 QLDR76354599242 2 e2-e14 PTEN ZSDQ47576315403 3 e1-e9 PTPN11 RVTO40729082706 2 e1-e15 SBDS GILU44512285481 2 e1-e5 RIT1 DNTV61720363552 3 alt e1 RIT1 YDWX80484433328 3 e2-e6 RUNX1 ZYOO65540869703 1 e2-e9 RUNX1 XNMW68374690113 1 alt e5 SF3B1 CRMC55055508788 6 e12-e18 SETBP1 NMFY60367619247 5 e4 SETD2 LLNV69998248500 3 e1-e21 SMC3 NZDY40281267587 4 e1-e29 SH2B3 TTJU39699096470 2 alt e1 SH2B3 IWND46155882699 2 e2-e8 SMC1A ZZWD63604791189 4 e1-e25 SMC1A NM_[id number] 4 alt e2 STAT3 XGRQ78132112984 5 e2-e24 SRSF2 HITL13955097872 5 e1 STAG2 NSZP29268081548 9 e3-e35 TERT SKCA69225571915 5 e1-e16 STAT5B ORGW28569763685 3 e13-e19 TERC AFPP15310411713 1 e1 U2AF1 DTBS12573343366 4 e2,e6 TET2 YOSD33893818615 4 e3-e11 TP53 IPJE29797223271 4 e2-e11 TP53 SQMK44614275569 4 alt e10 ZRSR2 NSOY83656662319 7 e1-e11 WT1 LTOT72300333195 3 alt e1 WT1 ZAGS41233030120 3 e1-e10 XPO1 FJSH06733002245 2 e15-e16 The test performed at [facility] were developed and their performance characteristics determined by the Molecular Diagnostic Laboratory in the Department of Pathology at [facility]. They have not been cleared or approved by the U.S. Food and Drug Administration (FDA). The FDA has determined that such clearance or approval is not necessary. By his/her signature below, the senior physician certifies that he/she personally reviewed all the laboratory data of the described specimen(s) and rendered or confirmed the diagnosis(es) related thereto. [facility] Procedure Comments ProcRHP - MDS/Cytopenia Rapid Heme Panel - [facility] Professional Interpretation Rapid Heme Panel - [facility] Report Accession No: [id number] Date: 1950 Sex: Female [facility] Molecular Diagnostics & [place] [address] CLIA License #: [id number] Processing Supervisor: Dr. Yady Katz Physician: MARYANN ENG MD Specimen Submitted: Hematopathology Procedure Date: 12/20/2024 Pathologist: Alma Augustin M.D. CLINICAL DATA: Clinical History: None given. Clinical Diagnosis: 74F with MDS s/p transplant RESULT: Sample Type: Molec Dx marrow ==== RAPID HEME PANEL ==== QC: PASS Pathogenic Single Nucleotide Variants and Small Insertions/Deletions* None Detected. A detailed investigation in igv does NOT identify the following, previously reported mutations above the level of noise of the assay: ASXL1 p.F575Nqg*12 (03/1095 reads), CBL p.S376F (0/634), SF3B1 p.T663I (), TET2 p.R1516* (0/628), TET2 p.T539Pvm*6 (), TET2 p.Q790* (0/977), U2AF1 p.Q157R (). A detailed investigation in igv does NOT identify the potentially actionable BRAF p.V600E mutation that can be seen in a minority of cases of myeloma above the level of noise of the assay. The pipeline did not detect any variants in TP53. Copy Number Analysis*: Read count analysis shows no significant copy number alterations in the regions tested. IKZF1 deletion: not detected ERG deletion: not detected KMT2A(MLL)-PTD: not detected *This test assesses only autosomal chromosomal copy number changes. FLT3-ITD Analysis None Detected. This assay has been validated to detect FLT3-ITDs with insert size up to 180 bp. AR (allelic ratio) is approximated as Mutant/Wildtype or Sum(Mutants)/Wildtype and is calculated from the variant allele fraction by the following formula: AR=FLT3-ITD alleles / wild-type alleles. However, the AR may be underestimated for certain ITDs by the technical limitations of the assay and should be considered semi-quantitative only for these cases. The validated limit of ITD detection is 0.01 AR, but lower ARs may be called at the pathologist discretion as clinically indicated. Values <0.01 should be viewed with caution. Other Variants of Unknown Significance (VUS)*: None Detected. A detailed investigation in igv does NOT identify the following, previously reported mutations relative to the sequencing depth achieved: MYC p.R436Q (0/495), CCND1 p.P54A (). *This test is designed for somatic analysis of variants and may provide information about the germline. It cannot distinguish between somatic and germline variants. Germline testing should be ordered separately, as indicated. Some variants on the VUS list may later found to be pathogenic and some may be of germline in nature. The following recurrently mutated codons have wild type sequences only: ABL1 315 BRAF 594 BRAF 595 BRAF 596 BRAF 597 BRAF 600 BRAF 601 CBL 371 CBL 384 CBL 404 CSF3R 615 CSF3R 617 CSF3R 618 DDX41 525 DNMT3A 882 ETNK1 244 FLT3 835 GNAS 201 GNB1 57 IDH1 132 IDH2 140 IDH2 172 JAK2 617 KIT 816 KIT 822 KIT 823 KRAS 12 KRAS 13 KRAS 61 KRAS 146 MAP2K1 57 MAP2K1 121 MPL 505 MPL 515 MYD88 265 NOTCH1 2514 NPM1 287 NPM1 288 NRAS 12 NRAS 13 NRAS 61 NRAS 146 PTPN11 60 PTPN11 61 PTPN11 71 PTPN11 72 PTPN11 73 PTPN11 76 SETBP1 868 SF3B1 625 SF3B1 626 SF3B1 662 SF3B1 666 SF3B1 700 SF3B1 742 SRSF2 95 STAT3 640 STAT3 661 U2AF1 34 U2AF1 156 U2AF1 157 XPO1 571 The following recurrently mutated codons have inadequate coverage(<100X): KRAS 12 KRAS 13 INTERPRETATION: QC details*: MTC: 564.6629 SV821x: 93.34% *MTC > 325 and YY164h > 85% is considered as good quality Test Information: The [facility] Rapid Heme Panel (RHP) Assay is a next generation sequencing assay based on the [employer] kit from [employer] A detailed description of the assay is available upon request from [facility], [facility]. Amplification method: [employer] Direct(R), [employer] Assay Version: Rapid Heme Panel V3.0 Genes: Total 88,(183 KB) whole coding sequence for most genes Sequencing platform: Illumina NextSeq 550Dx, 150bp paired-end reads Raw data processing: BWA Mem (v0.7.17) ANGIE Correction: Fgbio (v0.4.0) Variant Caller: Vardict (v1.6.0) CNV Caller: RobustCNV (internally developed) FLT3-ITD: TsaiITD (internally developed) Data File formats: BAM, VCF Genome version: hg19 Metrics: GATK (v.4.0.5.0) and Fgbio (v0.4.0) Variant Annotation: Variant Effect Predictor (v79) Pipeline cutoff: 3 Variant Reads and 1% variant allele frequency. Analytical sensitivity: Varies from locus to locus, but is estimated to be 3.0% at 325x consensus coverage The test performed at [facility] were developed and their performance characteristics determined by the Molecular Diagnostic Laboratory in the Department of Pathology at [facility]. They have not been cleared or approved by the U.S. Food and Drug Administration (FDA). The FDA has determined that such clearance or approval is not necessary. The following regions have insufficient number of sequence reads (<100X) for evaluation. Gene Exon Start End Coverage VAMSI e40 020380055 746577773 40.111590 BRCC3 e2 664694375 551310264 38 CREBBP e01 4744607 2867663 21.485607 e21 3596010 4165546 39.959139 CUX1 e01 160749777 038843397 32.521456 e24 159199424 796503815 18.510909 IDH2 e1 85514954 35275448 6.460125 JAK2 e15 0424797 6462372 47.109733 KMT2A e1 226176678 660123124 8.323334 NF1 e01 62395669 28883157 48.671323 e16 23225036 75623739 22.625 e20 84932109 56209409 47.527490 e24 61091666 27013994 24.740032 e36 55185954 26205747 33.948265 NT5C2 e11 240829803 176891480 22.217971 PTEN e02 21704265 39218985 40.498279 PTPN11 e01 066310004 939339337 26.957407 e14 695957296 817681661 24.671105 RUNX1 e03 15496533 21752080 49.106436 SH2B3 e02 447336416 794591548 19.667042 STAT3 e11 48480535 58695383 48.691662 TERT e01 0385602 3811683 6.781306 Targeted Gene/Exon List (genomic coordinates available upon request): The [facility] Rapid Heme Panel (RHP) Assay is a next generation sequencing assay based on the [employer] kit from [employer] A detailed description of the assay is available upon request from [facility], [facility]. ABL1 [id number] 5 alt e1 ABL1 CFRM41795546317 5 e1-e10 ASXL1 BMTN05366053972 4 e11-e12 VAMSI DDPW36633703862 4 e2-e63 ATRX YTGM05398711710 5 e1-e35 BCOR UXQX22928008629 4 e2-e15 BCORL1 LNQR12803729652 1 e1-e12 BCORL1 [id number] 1 alt e8 BRAF ARNE36193783376 6 e12-e16 BRCC3 UHMT26528662728 1 e1-e11 BTK FDPO28710150202 7 e11,e15-e16 CALR AXLU36385995186 5 e9 CBL TWJF03369623450 4 e7-e9 CCND1 DDNK28320189041 2 e1-e5 CD79B PPQJ93767661811 3 e5-e6 CDKN2A MQKB54215749241 1 e1-e4 CDKN2A NM_[id number] 1 alt e1 CDKN2B OMSK27851368720 6 e1-e2 CEBPA QBHM84199799094 2 e1 CREBBP IIYW79702567843 5 e1-e31 CRLF2 GZLD28913309818 3 e5 CSF3R YTUY29999759750 1 e14-e17 ENRT8O1 OUUU59991940475 2 e1-e10 OBDM6K6 TYOA26073954175 2 alt e5 CTCF BPIU86418616539 4 e3-e12 CUX1 ZTSX80268748334 7 e1-e24 CUX1 BOIX97488559189 7 alt e1,e15-e23 CXCR4 DKQE40305459118 3 e3 DDX41 RDBF40902813811 1 e1-e17 DKC1 HTJA44141843020 5 e1-e15 DNMT3A JXJP06830300460 3 alt e1-e2 DNMT3A VHIZ26262988128 3 e2-e23 DNMT3A [id number] 3 alt e1 EP300 DNAR59768217450 7 e1-e31 ERG GXNN51639650895 2 alt e1 ERG CDHY30639189732 2 e3-e12 ERG [id number] 2 alt e12 ETNK1 STYL44056775657 4 e3 ETV6 CDBV96163603175 4 e1-e8 EZH2 SPTG03327576671 2 e2-e20 FBXW7 DUYZ98697352624 4 e10-e14 FLT3 AUEG42350183653 7 e14,e16-e17,e20 GATA1 UUBF03894418671 3 e2-e6 GATA2 COCO54839706424 2 e2-e6 GNAS EZGR87513843940 3 e8-e9 GNB1 LKSK48661870717 4 e5-e6 IDH1 QXVA08649884093 2 e3-e10 IDH2 BSUJ36841564080 3 e1-e11 IKZF1 PNYU80191602372 3 e2-e8 IKZF1 MZDH77462673884 3 alt e4 IKZF1 YJUJ89245444022 3 alt e5 IL7R RUVQ36361814340 3 e5-e7 JAK1 QSFC52570261510 4 e10-e25 JAK2 CFGQ47387334160 3 e12-e20 JAK3 MDZE93697854157 1 e16-e24 KIT DLOZ04650882897 5 e8-e11,e17 KRAS VZAJ33457134130 3 e2-e6 KRAS VECC41611566516 3 alt e5 KMT2A SDJI83285590414 1 e1-e13,e24-e26 MAP2K1 BOCH18695897039 5 e2-e3,e6 e28-e30 MPL FXKF50428231992 3 e4,e10 NF1 VLOZ68363302505 3 e1-e57 NF1 HVAO19903406191 3 alt e31 MYC TCYU71198381916 2 e1-e3 MYD88 VMFT49682265658 3 e5 NOTCH2 IKVP59490212079 2 e24-e28,e34 NFE2 YJDP28134683106 1 e3-e4 NOTCH1 JNQC50306001602 6 e24-e28,e34 NSD2 LPNR45377505988 3 e20-e21 NPM1 RYGI52741999996 5 e10-e11 NRAS AXVG95509852084 4 e2-e5 PIGA MQYU90276181837 4 e1-e62 NT5C2 OCIJ84204702353 5 e10-e18 PHF6 RBHK57060953399 1 e1-e9 PRPF8 BNOR03782660170 6 e25-e34 PLCG2 UARO81931664092 3 e18-e19,e23 e26,e29 PPM1D KBGO50485551264 3 e6 RAD21 BDWA91617918165 2 e2-e14 PTEN IYXP64866950183 3 e1-e9 PTPN11 NHER30413328254 2 e1-e15 SBDS KKCW89116348843 2 e1-e5 RIT1 GNNN06621127922 3 alt e1 RIT1 TKRI71229481654 3 e2-e6 RUNX1 UIWX05367983517 1 e2-e9 RUNX1 SRLF97674983527 1 alt e5 SF3B1 NBGL26283326303 6 e12-e18 SETBP1 OSZP25733625592 5 e4 SETD2 XXLY24942282259 3 e1-e21 SMC3 WUYT01744483404 4 e1-e29 SH2B3 AEXS38368788434 2 alt e1 SH2B3 YVIF08667097366 2 e2-e8 SMC1A ITJY55189923270 4 e1-e25 SMC1A [id number] 4 alt e2 STAT3 UGJR66262466378 5 e2-e24 SRSF2 FLJP05679991921 5 e1 STAG2 ERET74264365976 9 e3-e35 TERT GCIE14991740719 5 e1-e16 STAT5B KTCP32407858094 3 e13-e19 TERC IYHW20710750667 1 e1 U2AF1 VYJH02968312567 4 e2,e6 TET2 FXXE01757310840 4 e3-e11 TP53 LHTC96332888028 4 e2-e11 TP53 VSDT50247499416 4 alt e10 ZRSR2 HPIL16532085768 7 e1-e11 WT1 IIWT90522982487 3 alt e1 WT1 RGTY08174578881 3 e1-e10 XPO1 NRLT15940495989 2 e15-e16 The test performed at [facility] were developed and their performance characteristics determined by the Molecular Diagnostic Laboratory in the Department of Pathology at [facility]. They have not been cleared or approved by the U.S. Food and Drug Administration (FDA). The FDA has determined that such clearance or approval is not necessary. By his/her signature below, the senior physician certifies that he/she personally reviewed all the laboratory data of the described specimen(s) and rendered or confirmed the diagnosis(es) related thereto. Final Diagnosis by Alma Augustin M.D., Electronically signed on Monday December 30, 2024 at 07:23:50PM [facility] Conversion Type (Other) 12/20/2024 12/21/2024 us Maryann Eng MD PATHOLOGY ORDERABLES Edit ed Result - Final [facility] [address] [place] [address] * Cytogenetics (12/20/2024 12:00 AM EDT) 12/20/2024 12/21/2024 Narrative [facility] - 01/22/2025 12:28 PM EST CASE: [id number] PATIENT: JAQUELINE OJEDA Date: 1950 Sex: Female [facility] Department of Pathology [address] [place] [address] CLIA License No.: [id number] Processing Supervisor: Asia Vazquez, PhD, [facility] Physician: MARYANN ENG MD Specimen Submitted: cg-Bone Marrow ~SP_Collection_date Medical Imaging Tech: Tj Rangel Ph.DKim Coughlin RESULTS: 46,XX[20] CELLS CULTURED: YES METAPHASES COUNTED: 20 ANALYZED: 20 SCORED: 0 BANDING: GTG INTERPRETATION: No cytogenetic aberrations were identified in metaphases analyzed from this bone marrow, which was cultured under unstimulated conditions. This normal result does not exclude a neoplastic proliferation. A normal G-banded karyotype does not necessarily represent the neoplastic component of a tumor specimen, and sometimes originates from the non-neoplastic cells in the specimen. COMMENTS: We received enough sample for 1 culture. Mosaicism and small chromosome anomalies may not be detectable using the standard methods employed. Chromosome analysis was performed at a level of 400 bands or greater. INDICATION FOR TEST: h/o MDS s/p transplant REPORT by Kim Heard Ph.D., on Tuesday January 21, 2025 at 01:49:38PM Final Diagnosis by Ever Kilpatrick M.D., Electronically signed on Wednesday January 22, 2025 at 12:28:35PM us Maryann Eng MD PATHOLOGY ORDERABLES Mily l Result [facility] [address] [place] [address] * Bone Marrow (Non-MGB) (12/20/2024 12:00 AM EDT) Final Diagnosis A-C. BONE MARROW CORE BIOPSY AND ASPIRATE, PERIPHERAL BLOOD SMEAR: Mildly hypocellular marrow with maturing trilineage hematopoiesis and <5% plasma cells with a lambda skew, see COMMENT. COMMENT: Diagnostic morphologic and immunophenotypic features of involvement by a myeloid neoplasm are not seen. Plasma cells are not increased (<5%) but show a slight lambda excess by in situ hybridization and concurrent MRD flow cytometry. Recent SPEP ([id number], 07/10/2024) shows a faint M-spike that cannot be quantitated but is IgG lambda by immunofixation. Given the patient's history of a lambda-restricted plasma cell neoplasm, close follow-up and clinical/laboratory correlation is needed. Additional correlation with pending cytogenetic, molecular diagnostic, and chimerism studies is advised. CORE BIOPSY: Biopsy specimen quality/adequacy: Adequate. Marrow biopsy cellularity: variable (<5-30%), overall approximately 10%; age-adjusted mildly hypocellular. Myeloid:erythroid ratio: normal. Myeloid maturation: complete. Erythroid maturation: complete. Megakaryocytes: adequate in number, with overall normal morphology. Scattered small lymphocytes are present. Lymphoid aggregates are not seen. Scattered plasma cells comprise less than 5% of cellularity, as demonstrated by CD138, and show a slight lambda excess by in situ hybridization for kappa and lambda light chains. A Giemsa special stain was performed to evaluate mast cells and plasma cells. ASPIRATE SMEAR AND TOUCH PREPARATION: Aspirate specimen adequacy: spiculated and cellular, though clotted with poor cytologic preservation. A 400 cell-count reveals: Blasts: 0% Promyelocytes: 1% Neutrophils and precursors: 53% Erythroid precursors: 25% Monocytes: 4% Eosinophils: 9% Basophils: 0% Lymphocytes: 8% Plasma cells: 0% M:E ratio: 2.66 Myeloid maturation is complete and without significant abnormalities. Erythroid maturation is complete and shows occasional forms with nuclear irregularities. Megakaryocytes are present and without significant abnormalities. Iron stain: storage iron is present; ring sideroblasts are not identified. FLOW CYTOMETRY (Hematologics, 0-8040, marrow): The flow cytometric findings show no evidence of aberrant myeloid antigen expression or abnormal myeloblasts (estimated lower level of enumeration <0.02%). Plasma cells in the specimen are rare (0.1%) but show a kappa:lambda ratio of 0.3:1. PERIPHERAL BLOOD: CBC results from 12/20/24 are as follows: WBC 6.22 K/uL; HGB 12.2 g/dL; HCT 36%; MCV 95.2 fL; RDW 15.9%; PLT 215 K/uL. Auto differential: 55.7% polys; 22.3% lymphs; 15.6% monos; 5.1% eos; 0.8% basos; 0.5% immature granulocytes; 0 nRBC/100WBC. Review of the peripheral smear reveals mature leukocytes and red blood cells with overall normal morphology. Circulating blasts are not identified. 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 Now completing maintenance therapy with aza/rosie.) [facility] Clinical History MDS s/p transplant. [facility] Operation None provided. [facility] Tissue Submitted A/1. Bone marrow biopsy B/2. Bone marrow aspirate C/3. Peripheral blood smear [facility] Gross Description The specimen is received in 3 parts, each labeled with the patient's name and medical record number. Part A received in [facility] consists of one core of ward tissue (1.0 cm in length by 0.2 cm in diameter) with a 0.5 cm attached portion of clot and a 1.1 cm separate portion of clot. The specimen is briefly decalcified in RapidCal-Immuno for 30 minutes and entirely submitted. A1: 2 fragments. Part B received fresh consists of 9 air-dried bone marrow aspirate smear(s). Part C received fresh consists of a Quintero-stained peripheral blood smear. Dictated by: Torie Dumont By his/her signature below, the senior physician certifies that he/she personally conducted a microscopic examination ( gross only exam if so stated) of the described specimen(s) and rendered or confirmed the diagnosis(es) related thereto. The immunoperoxidase, immunofluorescence and in-situ hybridization tests performed at [facility] were developed and their performance characteristics determined by the Immunohistochemistry Laboratories in the Department of Pathology at [facility]. They have not been cleared or approved by the U.S. Food and Drug Administration (FDA). The FDA has determined that such clearance or approval is not necessary. The immunohistochemical (IHC) stains performed on this case are deemed medically necessary. Some of the antigens may also have been evaluated by flow cytometry. Concurrent evaluation by IHC on tissue sections is indicated in this case in order to correlate immunophenotype with cell morphology and/or determine extent of involvement, spatial pattern and focality of potential disease distribution. [facility] Procedure Comments ProcCreate a paraffin block - [facility] Decalcification of a specimen - [facility] (order for accession only, not for recut) Giemsa Level 1 - [facility] Emerson In situ hybridization (Pinkus) - [facility] Lambda in situ hybridization (Pinkus) - [facility] CD138 (plasma cells) - [facility] Bone Marrow Stained Slide - [facility] Peripheral Blood Stained Slide - [facility] IRON on bone marrow aspirate, pro charge Touch Prep on bone marrow aspirate, pro charge Bone Marrow Unstained Slide - [facility] (order for accession only, not for recut) H&E stain on level 2 slide - [facility] (for accession only, not for recut) No bake, 63 degrees for Pinkus lab - [facility] Report Accession No: [id number] Date: 1950 Sex: Female [facility] Department [facility]ology [address] [place], [place] [address]IA License No.: [id number] Processing Supervisor: Dr. Frederick Vincent M.D., Ph.D. Physician: GUERITA RODRIGES MD, MPH Procedure Date: 12/20/2024 Resident: Ene Buck M.D. Pathologist: Lilly Jennings M.D., Ph.D. PATHOLOGIC DIAGNOSIS: A-C. BONE MARROW CORE BIOPSY AND ASPIRATE, PERIPHERAL BLOOD SMEAR: Mildly hypocellular marrow with maturing trilineage hematopoiesis and <5% plasma cells with a lambda skew, see COMMENT. COMMENT: Diagnostic morphologic and immunophenotypic features of involvement by a myeloid neoplasm are not seen. Plasma cells are not increased (<5%) but show a slight lambda excess by in situ hybridization and concurrent MRD flow cytometry. Recent SPEP ([id number], 07/10/2024) shows a faint M-spike that cannot be quantitated but is IgG lambda by immunofixation. Given the patient's history of a lambda-restricted plasma cell neoplasm, close follow-up and clinical/laboratory correlation is needed. Additional correlation with pending cytogenetic, molecular diagnostic, and chimerism studies is advised. CORE BIOPSY: Biopsy specimen quality/adequacy: Adequate. Marrow biopsy cellularity: variable (<5-30%), overall approximately 10%; age-adjusted mildly hypocellular. Myeloid:erythroid ratio: normal. Myeloid maturation: complete. Erythroid maturation: complete. Megakaryocytes: adequate in number, with overall normal morphology. Scattered small lymphocytes are present. Lymphoid aggregates are not seen. Scattered plasma cells comprise less than 5% of cellularity, as demonstrated by CD138, and show a slight lambda excess by in situ hybridization for kappa and lambda light chains. A Giemsa special stain was performed to evaluate mast cells and plasma cells. ASPIRATE SMEAR AND TOUCH PREPARATION: Aspirate specimen adequacy: spiculated and cellular, though clotted with poor cytologic preservation. A 400 cell-count reveals: Blasts: 0% Promyelocytes: 1% Neutrophils and precursors: 53% Erythroid precursors: 25% Monocytes: 4% Eosinophils: 9% Basophils: 0% Lymphocytes: 8% Plasma cells: 0% M:E ratio: 2.66 Myeloid maturation is complete and without significant abnormalities. Erythroid maturation is complete and shows occasional forms with nuclear irregularities. Megakaryocytes are present and without significant abnormalities. Iron stain: storage iron is present; ring sideroblasts are not identified. FLOW CYTOMETRY (Hematologics, 0-8040, marrow): The flow cytometric findings show no evidence of aberrant myeloid antigen expression or abnormal myeloblasts (estimated lower level of enumeration <0.02%). Plasma cells in the specimen are rare (0.1%) but show a kappa:lambda ratio of 0.3:1. PERIPHERAL BLOOD: CBC results from 12/20/24 are as follows: WBC 6.22 K/uL; HGB 12.2 g/dL; HCT 36%; MCV 95.2 fL; RDW 15.9%; PLT 215 K/uL. Auto differential: 55.7% polys; 22.3% lymphs; 15.6% monos; 5.1% eos; 0.8% basos; 0.5% immature granulocytes; 0 nRBC/100WBC. Review of the peripheral smear reveals mature leukocytes and red blood cells with overall normal morphology. Circulating blasts are not identified. 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 Now completing maintenance therapy with aza/rosie.) CLINICAL DATA: History: MDS s/p transplant. Operation: None provided. TISSUE SUBMITTED: A/1. Bone marrow biopsy B/2. Bone marrow aspirate C/3. Peripheral blood smear GROSS DESCRIPTION: The specimen is received in 3 parts, each labeled with the patient's name and medical record number. Part A received in [facility] consists of one core of ward tissue (1.0 cm in length by 0.2 cm in diameter) with a 0.5 cm attached portion of clot and a 1.1 cm separate portion of clot. The specimen is briefly decalcified in RapidCal-Immuno for 30 minutes and entirely submitted. A1: 2 fragments. Part B received fresh consists of 9 air-dried bone marrow aspirate smear(s). Part C received fresh consists of a Quintero-stained peripheral blood smear. Dictated by: Torie Dumont By his/her signature below, the senior physician certifies that he/she personally conducted a microscopic examination ( gross only exam if so stated) of the described specimen(s) and rendered or confirmed the diagnosis(es) related thereto. The immunoperoxidase, immunofluorescence and in-situ hybridization tests performed at [facility] were developed and their performance characteristics determined by the Immunohistochemistry Laboratories in the Department of Pathology at [facility]. They have not been cleared or approved by the U.S. Food and Drug Administration (FDA). The FDA has determined that such clearance or approval is not necessary. The immunohistochemical (IHC) stains performed on this case are deemed medically necessary. Some of the antigens may also have been evaluated by flow cytometry. Concurrent evaluation by IHC on tissue sections is indicated in this case in order to correlate immunophenotype with cell morphology and/or determine extent of involvement, spatial pattern and focality of potential disease distribution. Final Diagnosis by Lilly Jennings M.D., Ph.D., Electronically signed on Wednesday December 25, 2024 at 11:16:06AM [facility] Conversion Type (Other) 12/20/2024 12/20/2024 Conversion Type (Other) 12/20/2024 12/20/2024 Conversion Type (Blood, Peripheral) 12/20/2024 12/20/2024 Guerita Rodriges MD, MPH LAB PATHOLOGY ORDERABLES E dited Result - Final [facility] from Last 3 Months Insurance MEDICARE PART A & B [facility] MEDEX SUPPLEMENT MEDICARE PART A & B [employer] MEDEX SUPPLEMENT MEDICARE PART A & B [employer] MEDEX SUPPLEMENT MEDICARE PART A & B [facility] MEDEX SUPPLEMENT MEDICARE PART A & B [facility] MEDEX SUPPLEMENT MEDICARE PART A & B [facility] MEDEX SUPPLEMENT MEDICARE PART A & B [facility] MEDEX SUPPLEMENT MEDICARE PART A & B [facility] MEDEX SUPPLEMENT Advance Directives For more information, please contact: [phone] (9AM - 5PM Ana Laura/[place], Tuesday-Tuesday) Documents on File Type Date Recorded 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 Expl anation Healthcare Proxy 10/18/2023 * Full Code (Latest Code Status on File) Date Activated Date Inactivated Comments 01/15/2024 7:19 PM Question Answer Comments Code Status Confirmed With: Other (specify below ) Code Discussion Comments: presumed * Full Code Date Activated Date Inactivated Comments 11/30/2023 1:04 AM 01/15/2024 7:19 PM Question Answer Comments Code Status Confirmed With: Patient * Full Code Date Activated Date Inactivated Comments 11/21/2023 5:21 PM 11/30/2023 1:04 AM Question Answer Comments Code Status Confirmed With: PatientFamily Code Status Communicated To: Other (specify belo w) Code Discussion Comments: NING Browning * Full Code Date Activated Date Inactivated Comments 11/12/2023 11:24 PM 11/21/2023 5:21 PM Question Answer Comments Code Status Confirmed With: Patient Care Teams Filing And Polishing Supervisor Relationship Specialty Start Date End Date Dorinda Melendez MD [address] [place] [address] PCP - General Internal Medicine 01/10/23 Self-Referred, Patient 01/10/23 Otis Hernandez MD [email or web address] 04/22/23 [email or web address] Auto Damage Insurance Appraiser 09/22/23 Michelle Raymundo, LITERACY SPECIALIST [address] [place] [address] [email or web address] Hematology and Oncology 09/26/23 Nazanin Montano, RN [address] [place] [address] [email or web address] Primary Infusion Nurse 12/20/23 Additional Source Comments The information contained in this document represents components of the legal health record. It is not the complete legal health record.[facility]
--- OUTSIDE RECORDS SUMMARY | 2025-02-18 13:10 | XMS_ITS ---
Author Organization [facility] Address [address] [place] [address] Phone Care Team Providers Care Fish Technologist Name Role Phone Dorinda Melendez MD Primary Care Provider [phone] Self-Referred, Patient Unavailable Unavailab Otis Verma MD Unavailable [phone] Bertha Rice Unavailable [email or web address] [email or web address] Michelle Raymundo SOCIAL AND POLITICAL STUDIES PROFESSOR Unavailable Nazanin Montano RN Unavailable [phone] Active Problems Patient Care Coordination No te [...] MDS-EB1 Sep 2022. Received Decitabine x2 cycles, Jose added for persistent disease with improvement in blasts but MRD+ with residual mutations. Underwent outpatient [facility] 12/07 [facility] PBSCT (11/11/23) on Protocol 18-283 with addition of Venetoclax. Toxo negative. No ABO mismatch. 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 Day 0 = 11/11/23. PI: Maryann Eng MD; Primary Oncologist: Dr. Guerita Hall RRN: Tri Escobar -- Continue acyclovir, bactrim [...] MDS-EB1 Sep 2022. Received Decitabine x2 cycles, Jose added for persistent disease with improvement in blasts but MRD+ with residual mutations. Underwent outpatient [facility] 12/07 [facility] PBSCT (11/11/23) on Protocol 18-283 with addition of Venetoclax. Toxo negative. No ABO mismatch. 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 Day 0 = 11/11/23. PI: Maryann Eng MD; Primary Oncologist: Dr. Guerita Hall RRN: Tri Escobar -- Continue acyclovir, bactrim [...] MDS-EB1 Sep 2022. Received Decitabine x2 cycles, Jose added for persistent disease with improvement in blasts but MRD+ with residual mutations. Underwent outpatient [facility] 12/07 [facility] PBSCT (11/11/23) on Protocol 18-283 with addition of Venetoclax. Toxo negative. No ABO mismatch. 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 Day 0 = 11/11/23. PI: Maryann Eng MD; Primary Oncologist: Dr. Guerita Hall RRN: Tri Escobar -- Continue acyclovir, bactrim ppx (switched from mepron ppx this admit with plt reconstitution) -- Weekly CMV, EBV, G/G monitoring -- Continue Letermovir 480mg daily through D+100 -- Pre-transplant vitamin D level was 37; maintain on Cholecalciferol 2,000 unit daily. 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 [...] Maryann Eng MD; Primary Oncologist: Dr. Guerita Hall RRN: Tri Escobar GVHD Prophylaxis consists of: (1) [...] U2AF1 mutations. [facility] Protocol 18-283, a phase 1 [...] Maryann Eng MD; Primary Oncologist: Dr. Guerita Hall RRN: Tri Escobar -- Weekly CMV, EBV, G/G [...] knee, R wrist, neck). 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 On 10/1am, [...] pain and swelling. Most recently seen by [facility] rheumatology 12/25, completed prednisone taper 01/11/24, last on prednisone 2.5 mg daily Assessment & Plan (12/05/2023 11:06 AM EDT): History of polyarticular arthritis (R ankle, R knee, R wrist, neck). 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 On 10/1am, [...] syndrome 02/15/2023 Type 2 diabetes mellitus 02/15/2023 Current Treatment and Therapy Plans 18-283 MAINTENANCE 400 MG VENETOCLAX + AZACITIDINE (42 DAYS)* Plan Start Date: 01/30/2024 Plan Provider:Maryann Eng MD Linked Problems MDS (myelodysplastic syndrom e)History of allogeneic stem cell transplant Treatment Medications Current Day (Day 2 , Cycle 8 - Planned for 11/13/2024) Next Day (Day 3, Cycle 8 - Planned for 11/14/2024) azaCITIDine (VIDAZA) IVPBID-venetoclax (18-283) azaCITIDine (VIDAZA) 60 mg in sodium chloride 0.9% 116 mL IVPBID-venetoclax (18-283) tablet 400 mg azaCITIDine (VIDAZA) 60 mg in sodium chloride 0.9% 116 mL IVPBID-venetoclax (18-283) tablet 400 mg Other Current Plans 14 MONTH POST-HSCT Vaccines (HEP B) (DFCI)* Plan Start Date:01/17/2025 Plan Provider:Srikanth Collazo CNP Linked Problems History of allogeneic stem c ell transplant Treatment Medications No medications scheduled. 3-6 MONTH POST-HSCT RESPIRATORY VIRUS VACCINES (DFCI)* Plan Start Date:11/27/2024 Plan Provider:Guerita Hall MD, MPH Linked Problems History of allogeneic stem c ell transplant Treatment Medications No medications scheduled. Past Treatment and Therapy Plans Oncology Therapy Plan Supplemental Plan Name Start Date Discontinue Date Treatment Medications Discontinue Reason Plan Provider 9 MONTH POST-HSCT VACCINES (DFCI) 08/20/2024 11/27/2024 No medications scheduled. a. Therapy Complete Srikanth Collazo CNP Oncology Therapy Plan Supplemental 2 Plan Name Start Date Discontinue Date Treatment Medications Discontinue Reason Plan Provider 14 MONTH POST-HSCT Vaccines (HEP B) (DFCI) 01/17/2025 01/17/2025 No medications scheduled. m. Entered in error Srikanth Collazo CNP 3-6 MONTH POST-HSCT RESPIRATORY VIRUS VACCINES (DFCI) 08/20/2024 11/27/2024 No medications scheduled. a. Therapy Complete Srikanth Collazo CNP RESEARCH PLAN Plan Name Start Date Discontinue Date Treatment Medications Discontinue Reason Plan Provider Cycles OP BMT 1 REST DAY PART 4 DL1 1: 400 MG VENETOCLAX PO QD X 7 DOSES + CHEMO CONDITIONING 11/03/2023 11/27/2024 busulfan (BUSULFEX) infusion 0.5 mg/mLcycloPHOS phamide (CYTOXAN) infusion 250 mL (liquid vial)fludarabi ne (FLUDARA) IVPB {solution vial}ID-veneto clax () a. Therapy Complete Guerita Hall MD, MPH 1 of 1 cycle started Lifetime Dose Tracking * Chemical Lifetime Dose Automatic Entry Manual Entr y busulfan 6.101 mg/kg (456 mg) 6.101 mg/kg (456 mg) 0 mg/kg (0 mg) Resolved Problems Problem Noted Date Diagnosed Date [...] within 24 hours of stem cell infusion[address] 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 [...] Nightly fevers since 11/29 (with exception of 103pm). Had initially been c/f septic arthritis as in #polyarticular arthritis but joint tap 11/29 NG thus stopped Vanc 12/01 after 48h [...]
--- OUTSIDE RECORDS SUMMARY | 2025-02-18 13:11 | XMS_ITS | Clinical Summary ---
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 11/11/2024 Active omeprazole (PriLOSEC) [address] capsule Take 1 capsule (20 mg total) by mouth 2 (two) times a day. 12/03/2024 Active sertraline (ZOLOFT) 50 mg tablet Take 1 tablet (50 mg total) by mouth 1 (one) time each day. 11/11/2024 Active sulfamethoxazol e-trimethoprim (BACTRIM,SEPTRA ) 400-80 mg per tablet Take 1 tablet by mouth 1 (one) time each day. Active valsartan (DIOVAN) 80 mg tablet Take 1 tablet (80 mg total) by mouth 1 (one) time each day. 09/18/2024 Active cholecalciferol (VITAMIN D-3) 25 mcg (1,000 unit) tablet Take 1 tablet (1,000 Units total) by mouth 1 (one) time each day. Active calcium citrate (CALCITRATE) 950 mg (200 mg elemental calcium) tablet Take 1 tablet (950 mg total) by mouth. Active [id number] zrn-ZzSi-DAe-as b-C (Plenvu) 140-9-5.2 gram powder in packet, sequential Take 1 each by mouth 2 (two) times a day. 3 packet 01/23/2025 Active [id number] txt-CdOt-BDg-as b-C (Plenvu) 140-9-5.2 gram powder in packet, sequential Take 1 each by mouth 2 (two) times a day. 3 packet 01/28/2025 Active Encounters Date Type Department Care Team Description 12/04/2024 1:00 PM EDT Office Visit Gastroenterology - [address] [facility] [address] [place] [phone] Dorinda Brock MD Echevarria syndrome (Primary Dx) 12/04/2024 Telephone Gastroenterology - [address] [facility] [address] [phone] Dorinda Brock MD from Last 3 Months Surgical History Surgery Date Site/Laterality Comments COLONOSCOPY 12/13/2022 5 mm non-diagnostic polyp ESOPHAGOGASTRODUODENOSCOPY 12/13/2022 nl COLONOSCOPY W/ POLYPECTOMY 11/16/2021 benign polyp ESOPHAGOGASTRODUODENOSCOPY 11/10/2020 nl COLONOSCOPY 11/10/2020 HP x 1 COLONOSCOPY W/ POLYPECTOMY 09/11/2019 tiny TA x 1 COLONOSCOPY W/ BIOPSIES 09/11/2019 ESOPHAGOGASTRODUODENOSCOPY 06/03/2017 nl HYSTERECTOMY COLONOSCOPY 08/11/2018 nl COLONOSCOPY W/ BIOPSIES 06/03/2017 TA x 1 COLONOSCOPY W/ POLYPECTOMY 05/28/2016 SSA x 1 ESOPHAGOGASTRODUODENOSCOPY 05/09/2015 H. 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 Hyperlipidemia HTN (hypertension) MGUS (monoclonal gammopathy of unknown significance) Anemia Arthritis MDS (myelodysplastic syndrom e) (CMS/HCC V24, CMS/HCC V28) s/p bone marrow transplant Family History Medical History Relation Name Comments Brain cancer Brother Colon cancer Maternal Grandmother Marai Del Rosario Antoine Colon polyps Mother Howard Enrique Heart attack Mother Howard Enrique Hyperlipidemia Mother Howard Enrique Hypertension Mother Howard Enrique Colon cancer Mother's Brother Vaughn Antoine Uterine cancer Sister Relation Name Status Comments Brother Maternal Grandmother Maria Del Rosario Antoine Mother Howard Enrique Mother's Brother Vaughn Antoine Alive Sister Social History Tobacco Use Types Packs/Day Years Used Date Smoking Tobacco: Former Cigarettes 1 3 Smokeless Tobacco: Never Alcohol Use Standard Drinks/Week Comments Not Currently 0 (1 standard drink = 0.6 oz pur e alcohol) Comments Unknown Sex and Gender Information Value Date Recorded Sex Assigned at Female 08/06/2024 9:04 AM EDT Legal Sex Female 9:13 AM EST Gender Identity Female 08/06/2024 9:04 AM EDT Sexual Orientation Not on file Last Filed Vital Signs Vital Sign Reading Time Taken Comments Blood Pressure - - Pulse - - Temperature - - Respiratory Rate - - Oxygen Saturation - - Inhaled Oxygen Concentration - - Weight 67.5 kg (148 lb 12.8 oz) 12/04/2024 1:03 PM EDT Height 152.4 cm (5') 12/04/2024 1:03 PM EDT Body Mass Index 29.06 12/04/2024 1:03 PM EDT Plan of Treatment Health Maintenance Due Date Last Done Comments Breast Cancer Screening 1950 Diabetes: Annual Foot Exam 1960 Diabetes: Annual Retina Eye Exam 1960 Cholesterol Screening (Lipid Panel) 01/31/2022 Falls Risk Assessment 01/31/2022 Medicare Annual Wellness Visit 01/31/2022 Social Influencers of Health Screening 01/31/2022 Depression Screening 02/29/2024 Influenza Vaccine (#1) 2024 , 12/17/2022, 11/13/2021, Additional history exists Diabetes: Annual Urine Albumin-Creatinine Ratio (uACR) 12/04/2024 Diabetes: Blood Sugar Control Test (HGBA1C) 12/04/2024 Hepatitis B Vaccines (2 of 3 - Hep B Twinrix 3-dose series) 12/25/2024 11/27/2024 COVID-19 Vaccine (8 - Moderna risk 2024- season) 2025 11/27/2024, 08/20/2024, 06/19/2024, Additional history exists IPV Vaccines (3 of 3 - Adult catch-up series) 05/27/2025 11/27/2024, 08/20/2024 Diabetes: Annual GFR (Glomerular Filtration Rate) 11/27/2025 11/27/2024, 11/12/2024, 10/16/2024, Additional history exists Hypertension/CHF/CAD Annual BMP Blood Test 11/27/2025 11/27/2024, 11/12/2024, 10/16/2024, Additional history exists Colorectal Cancer Screening: Colonoscopy 08/11/2028 08/11/2018, 06/03/2017 Osteoporosis Screening (Bone Density Screening) 01/03/2029 01/03/2019 DTaP,Tdap,and Td Vaccines (4 - Td or Tdap) 11/27/2034 11/27/2024, 08/20/2024, 09/08/2011 RSV Immunization Adult Patients Completed 03/26/2024, 12/17/2022 Hepatitis C Screening Completed 10/01/2024 HIB Vaccines Aged Out 11/27/2024, 08/20/2024 No lo nger eligible based on patient's age to complete this topic Hepatitis A Vaccines Aged Out 11/27/2024 No long er eligible based on patient's age to complete this topic Meningococcal ACWY Vaccine Aged Out 11/27/2024 N o longer eligible based on patient's age to complete this topic Pneumococcal Vaccine: 50+ Years Completed 11/27/2024, 08/20/2024, 07/22/2016, Additional history exists Zoster Vaccines Completed 11/27/2024, 07/30, 05/05/2022, Additional history exists HPV Vaccines Aged Out No longer eligi ble based on patient's age to complete this topic MMR Vaccines Aged Out No longer eligi ble based on patient's age to complete this topic Meningococcal B Vaccine Aged Out No l onger eligible based on patient's age to complete this topic RSV Immunization Patients Under 20 months Aged Out No longer eligible based on patient's age to complete this topic Varicella Vaccines Aged Out No longer eligible based on patient's age to complete this topic Procedures Procedure Name Priority Date/Time Associated Diagnosis Comments [facility] DEXA AXIAL SKELETON Routine 01/03/2019 9:50 AM EST Asymptomatic menopausal state EXTERNAL COLONOSCOPY REPORT Routine 08/11/2018 9:04 AM EDT from Last 3 Months or Most Recently Relevant to Health Maintenance Results * [facility] DEXA AXIAL SKELETON (01/03/2019 9:50 AM EST) Anatomical Region Laterality Modality Mammography 01/03/2019 8:54 AM EST Narrative 01/03/2019 9:50 AM EST [facility] Diagnostic Imaging Department [address] [place] [id number] Patient: HOWARD GUTIÉRREZU /Age/Sex: 1950 - 68 - F Unit#: [id number] Location/Status: SPDIMAM/REG CLI [facility]em[facility] Ordering Physician: DORINDA MELENDEZ MD [facility] Dexa Axial Skeleton - 01/03/19 - HISTORY: The patient is a 68-year-old postmenopausal female with clinical concern for metabolic bone disease. FINDINGS: Dual energy x-ray absorptiometry of the lumbar spine and femurs is performed. The mean bone mineral density at L1-2 is 1.272 gm/cm2 which is 109% of that of young normals and 126% of that of age matched controls. This yields a T-score of 0.9 and a Z-score of 2.2 and there is therefore no evidence of osteoporosis or osteopenia here. The mean bone mineral density of the femurs bilaterally is 1.040 gm/cm2 which is 103% of that of young normals and 120% of that of age matched controls. This yields a T-score of 0.3 and a Z-score of 1.4 and there is therefore no evidence of osteoporosis or osteopenia here. IMPRESSION: 1. There is no evidence of osteoporosis or osteopenia. There has been an increase of 1.8% in bone mineral density in the lumbar spine since the prior examination of 04/17/2015. There has been an increase of 1.0% in bone mineral density in the right femur and an increase of 3.9% in bone mineral density in the left femur. 2. FRAX analysis yields a 10-year probability of major osteoporotic fracture of 13.3% and a 10-year probability of hip fracture of 1.2%. Code 38548 Dictating Physician: LAUREN MUÑOZ MD Electronically Signed by: LAUREN MUÑOZ MD Dic Date/Time: 01/03/1949 Sign date/Time: 1950 Procedure Note Lauren Muñoz - 02/16/2022 [facility] Diagnostic Imaging Department [address] [place] [address] Patient: HOWARD GUTIÉRREZ /Age/Sex: 1950 - 68 - F Unit#: [id number] [facility] Ordering Physician: DORINDA MELENDEZ MD [facility] Dexa Axial Skeleton - 01/03/19 - HISTORY: The patient is a 68-year-old postmenopausal female withclinical concern for metabolic bone disease. FINDINGS: Dual energy x-ray absorptiometry of the lumbar spine and femursis performed. The mean bone mineral density at L1-2 is 1.272 gm/cm2 which is109% of that of young normals and 126% of that of age matched controls. Thisyields a T-score of 0.9 and a Z-score of 2.2 and there is therefore no evidenceof osteoporosis or osteopenia here. The mean bone mineral density of the femurs bilaterally is 1.040 gm/km4wfjaq is 103% of that of young normals and 120% of that of age matched controls.This yields a T-score of 0.3 and a Z-score of 1.4 and there is therefore noevidence of osteoporosis or osteopenia here. IMPRESSION: 1. There is no evidence of osteoporosis or osteopenia. There has beenan increase of 1.8% in bone mineral density in the lumbar spine since theprior examination of 04/17/2015. There has been an increase of 1.0% in bonemineral density in the right femur and an increase of 3.9% in bone mineral densityin the left femur. 2. FRAX analysis yields a 10-year probability of major osteoporoticfracture of 13.3% and a 10-year probability of hip fracture of 1.2%. 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 Expl anation Health Care Decision (hx) 09/02/2015 AD CAMPBELL DIRECTIVE Health Care Decision (hx) 09/02/2015 AD CAMPBELL DIRECTIVE Health Care Decision (hx) 09/02/2015 AD CAMPBELL DIRECTIVE Health Care Decision (hx) 09/02/2015 AD CAMPBELL DIRECTIVE Health Care Decision (hx) 09/02/2015 AD CAMPBELL DIRECTIVE Health Care Decision (hx) 09/02/2015 AD CAMPBELL DIRECTIVE Health Care Decision (hx) 09/02/2015 AD CAMPBELL DIRECTIVE Health Care Decision (hx) 09/02/2015 AD CAMPBELL DIRECTIVE Care 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
== END 2025-02-18 15:35 | disposition home or self-care (01) ==
LOC: HO.HMCC 10:38
PROVIDERS: PCP Internal Medicine; Visit Provider Internal Medicine
DX: I10 Essential (primary) hypertension (principal); E11.9 Type 2 diabetes mellitus without complications; E78.5 Hyperlipidemia, unspecified; D46.9 Myelodysplastic syndrome, unspecified; Z13.9 Encounter for screening, unspecified

== ENCOUNTER → 2025-02-18 10:38 | Outpatient (BNVA) | payer MEDICARE, SELFPAY | PROVIDERS: PCP Internal Medicine; Visit Provider Internal Medicine | DX: I10 Essential (primary) hypertension (principal); E11.9 Type 2 diabetes mellitus without complications; D46.9 Myelodysplastic syndrome, unspecified; E78.5 Hyperlipidemia, unspecified; Z13.31 Encounter for screening for depression | CPT/HCPCS: 82948; 83036; 96127; 99212 ==